=== PATIENT | female | born 1950 | race Caucasian/White ===

== ENCOUNTER → 2018-01-07 01:18 | Outpatient (CLI) | payer MEDICARE, SELFPAY ==
--- NOTE | 2018-01-07 11:47 | DI.REPORT_ITS ---
SYMPTOMS/DIAGNOSIS: SCREENING, Z12.31 MAMMOGRAMS: Mammograms were interpreted according to the usual protocol including computer analysis with CAD system, tomosynthesis and C view imaging. Comparison is with prior mammograms. The patient is status post bilateral breast reduction. No masses or microcalcifications are seen. There has been no significant change compared to the prior examinations. IMPRESSION: No evidence for malignancy. Yearly mammography is recommended. Category 1, breast density B. SA ASSESSMENT OF FINDINGS: Negative. Category 1. Patient will receive a letter notifying them of these results. BI-RADS category B. There are scattered areas of fibroglandular density.
== END ==
PROVIDERS: PCP Nurse Practitioner Family; Visit Provider Nurse Practitioner Family
DX: Z12.31 Encounter for screening mammogram for malignant neoplasm of breast (principal); Z98.890 Other specified postprocedural states
CPT/HCPCS: 77063; 77067

== ENCOUNTER 2018-05-13 16:05 | Outpatient (REF) | payer MEDICARE, MEDICAID, SELFPAY | END 2018-05-13 16:25 | LOC: NCHCN 16:05 | PROVIDERS: PCP Nurse Practitioner Family; Visit Provider Nurse Practitioner Family | DX: R53.83 Other fatigue (principal); I10 Essential (primary) hypertension; E78.5 Hyperlipidemia, unspecified; R19.8 Other specified symptoms and signs involving the digestive system and abdomen | CPT/HCPCS: 87077; 87086; 87186 ==

== ENCOUNTER 2018-08-13 16:30 | Outpatient (REF) | payer MEDICARE, MEDICAID, SELFPAY ==
[2018-08-13 22:01] LABS: Magnesium 1.5 mg/dL (1.8-2.4)
== END 2018-08-13 16:50 ==
LOC: NCHCN 16:30
PROVIDERS: PCP Nurse Practitioner Family; Visit Provider Nurse Practitioner Family
DX: E83.42 Hypomagnesemia; R53.83 Other fatigue; I10 Essential (primary) hypertension; R07.9 Chest pain, unspecified
CPT/HCPCS: 83735; 87086

== ENCOUNTER 2018-08-29 13:47 | Outpatient (REF) | payer MEDICARE, MEDICAID, SELFPAY ==
[2018-08-29 12:49] LABS: Magnesium 1.4 mg/dL (1.8-2.4)
== END 2018-08-29 14:07 ==
LOC: NCHCN 13:47
PROVIDERS: PCP Nurse Practitioner Family; Visit Provider Nurse Practitioner Family
DX: E83.42 Hypomagnesemia (principal)
CPT/HCPCS: 83735

== ENCOUNTER 2018-09-26 12:54 | Outpatient (REF) | payer MEDICARE, MEDICAID, SELFPAY ==
[2018-09-26 14:13] LABS: Magnesium 1.3 mg/dL (1.8-2.4)
== END 2018-09-26 13:14 ==
LOC: NCHCN 12:54
PROVIDERS: PCP Nurse Practitioner Family; Visit Provider Nurse Practitioner Family
DX: E83.42 Hypomagnesemia (principal)
CPT/HCPCS: 83735

== ENCOUNTER 2018-10-15 09:19 | Emergency (ER) | payer MEDICARE, SELFPAY ==
[2018-10-15 09:24] VITALS: BP 153/87; PULSE 101; RESP 16; TEMP 36.6; O2SAT 97
--- NOTE | 2018-10-15 09:37 | DI.CT_ITS ---
SYMPTOMS/DIAGNOSIS: DENTAL INFECTION, THROAT DISCOMFORT WITH SWALLOW, CONCERN FOR ABSCESS CT OF THE NECK: Post contrast exam was performed. There is stranding in the soft tissues adjacent to the left mandible. There is no evidence of a drainable abscess. The mandible is not fully included on the exam. There are small reactive lymph nodes beneath the left mandible. No areas of bony destruction or abscess are identified. Multiple nodules are seen in the thyroid, the largest being posteriorly in the left lobe, which contains calcifications. Degenerative changes are seen in the cervical spine. No prevertebral soft tissue swelling is seen. IMPRESSION: 1. Mild soft tissue inflammation beneath the level of the left mandible. No evidence of bony destruction or abscess. 2. Bilateral thyroid nodules. Ultrasound followup is recommended.
--- NOTE | 2018-10-15 09:51 | ED.GENADUL_ITS ---
Discharge Plan Disposition Patient Disposition: HOME Condition: Stable Discharge Details Chief Complaint: DentalOral Clinical Impression: Dental infection, Thyroid nodule Primary Care Provider: Joellen Molina ED Provider: Elie Hopkins Home Meds and New Rx's Prescriptions: New clindamycin HCl 150 mg capsule 450 mg PO TID 7 Days Qty: 63 RF: 0 Continued amitriptyline 100 mg tablet 100 mg PO RF: 0 triamcinolone acetonide 0.5 % ointment 0.5 % Topical DAILY 90 Days Qty: 1 RF: 5 aspirin 81 MG tablet,chewable 81 mg PO DAILY RF: 0 MEDICAL MARIJUANA Inhalation DAILY RF: 0 polyethylene glycol 3350 [Miralax] 17 GM powder in packet 17 gm PO DAILY RF: 0 calcium carbonate-vitamin D3 1 EACH tablet 1 ea PO DAILY RF: 0 Flovent HFA 10.6 GM HFA aerosol inhaler 88 mcg Inhalation BID RF: 0 lorazepam [Ativan] 1 MG tablet 1 mg PO BID PRN RF: 0 Novolog Mix 70-30FlexPen U-100 100 UNIT/1 ML insulin pen 20 Sub-Q AC RF: 0 Omeprazole Magnesium [Prilosec] 10 MG SUSPDR.PKT 20 mg PO DAILY RF: 0 enalapril maleate [Vasotec] 2.5 MG tablet 2.5 mg PO DAILY RF: 0 simvastatin 40 MG tablet 40 mg PO HS RF: 0 pramipexole [Mirapex] 0.5 MG tablet 0.5 mg PO HS RF: 0 levothyroxine 25 MCG tablet 25 mcg PO DAILY RF: 0 metformin [Glucophage] 1,000 MG tablet 1,000 mg PO BID RF: 0 Flovent HFA 120 PUFF HFA aerosol inhaler 2 puff Inhalation BID RF: 0 albuterol sulfate [ProAir HFA] 200 PUFF HFA aerosol inhaler 2 puff Inhalation Q6H PRN PRNRF: 0 Bydureon 2 MG/0.65 ML pen injector 2 mg SQ .QMONDAY RF: 0 Levemir FlexTouch U-100 Insuln 300 UNITS/3 ML insulin pen 30 units Sub-Q BID RF: 0 gabapentin 300 MG capsule 300 mg PO TID RF: 0 Discharge Instructions Instructions: Dental Abscess (ED) Additional Instructions: Please take your antibiotic and other medications as prescribed and follow-up with your primary care provider tomorrow for reassessment of your condition and to ensure your infection is improving. If you have any difficulty breathing, inability to swallow, or any other concerns emergently you should come back to the emergency department. Referrals: Joellen Molina [Primary Care Provider] - 10/16/18 7:45 am (A appointment has Already been arranged for you to follow-up tomorrow morning for reassessment) Discharge Data Discharge Date/Time-TO BE ENTERED AT DEPARTURE: 10/15/18 15:17 Medical Decision Making Patient reports 4 to 5 days ago she noted some pain in her left lower jaw and some mild facial swelling. Patient saw dentist yesterday and was placed on amoxicillin and took a total of 3 doses yesterday and 1 dose this morning. Patient noted significant swelling to the left lower jaw and some pain with swallowing today and was concerned for allergic reaction. She contacted her primary care provider for recommendation whom stated she should come to the emergency department. Physical exam does show significant swelling to the left lower jaw both external and internal, no erythema or area of induration and tissue that is swollen feel soft. Patient has multiple missing teeth and some swelling surrounding the left lower gumline and also there is appearance of some swelling underneath the tongue. Patient's airway is intact and patient is able to speak in full sentences, no trismus, no drooling. I have concern for dental abscess but also given the throat symptoms and potential for swelling under the tongue also Rafael's angina. Patient ordered labs, blood cultures, IV access clindamycin and CT imaging for further evaluation. Pending results patient given ketorolac for pain. Review of labs show a significant leukocytosis, elevated lactate, and hyperglycemia otherwise nondiagnostic CMP. Patient ordered second liter of IV fluids pending CT results Review of CT imaging shows significant soft tissue inflammatory changes suggestive of infection but no signs of abscess. Incidentally there were some thyroid nodules seen on CT scan that require further outpatient imaging. Rechecked lactate which is now 0.8 and patient states significant improvement of symptoms, reduction of sensation of swelling, and more controllable pain. Called and spoke with patient's primary care provider about needing a next day appointment for recheck of infection along with further outpatient testing for her thyroid nodules. We were able to obtain an appointment tomorrow morning for recheck. Close return precautions were discussed. After discussion of diagnosis and plan of care patient has no further needs, questions, or concerns and states clear understanding to return to the emergency department for any worsening symptoms. HPI General Mode of arrival: ambulatory . Date/Time Provider Initiated Documentation: 10/15/18 09:20 . Limitations to Documentation: no limitations . Information obtained by: patient and RN notes reviewed . History of Present Illness 67 year old F presents to the emergency department with the chief complaint of Dental pain, described as severe, Quality is described as sharp, and is localized to the mouth. Patient started experiencing this day(s) (4) and it has been constant. No relieving factors improve symptom(s), Patient notes no other symptoms.. Patient did receive the following treatments prior to arrival, NSAID Related Data Home Medications Medication Instructions Recorded Confirmed enalapril maleate [Vasotec] 2.5 mg PO DAILY 04/30/13 10/15/18 pramipexole [Mirapex] 0.5 mg PO HS 04/30/13 10/15/18 simvastatin 40 mg PO HS 04/30/13 10/15/18 levothyroxine 25 mcg PO DAILY 09/05/13 10/15/18 Bydureon 2 mg SQ .QMONDAY 02/22/15 10/15/18 Flovent HFA 2 puff INHALATION BID 02/22/15 10/15/18 albuterol sulfate [ProAir HFA] 2 puff INHALATION Q6H PRN PRN 02/22/15 10/15/18 metformin [Glucophage] 1,000 mg PO BID 02/22/15 10/15/18 Levemir FlexTouch U-100 Insuln 30 units SUB-Q BID 06/07/15 10/15/18 aspirin 81 mg PO DAILY tab-cap 11/13/16 10/15/18 gabapentin 300 mg PO TID 08/10/17 10/15/18 Flovent HFA 88 mcg INHALATION BID inhaler 10/04/17 10/15/18 Medical Marijuana INHALATION DAILY 10/04/17 04/22/18 Novolog Mix 70-30FlexPen U-100 20 SUB-Q AC 10/04/17 04/22/18 Omeprazole Magnesium [Prilosec] 20 mg PO DAILY packet 10/04/17 10/15/18 calcium carbonate-vitamin D3 1 ea PO DAILY 10/04/17 10/15/18 lorazepam [Ativan] 1 mg PO BID PRN tab-cap 10/04/17 10/15/18 polyethylene glycol 3350 [Miralax] 17 gm PO DAILY gm 10/04/17 10/15/18 amitriptyline 100 mg tablet 100 mg PO tab 04/22/18 04/22/18 triamcinolone acetonide 0.5 % 0.5 % TOPICAL DAILY 90 Days #1 tube 04/22/18 10/15/18 topical ointment clindamycin HCl 450 mg PO TID 7 Days #63 cap 10/15/18 Previous Rx's Medication Instructions Recorded triamcinolone acetonide 0.5 % 0.5 % TOPICAL DAILY 90 Days #1 tube 04/22/18 topical ointment clindamycin HCl 450 mg PO TID 7 Days #63 cap 10/15/18 Allergies Allergy/AdvReac Type Severity Reaction Status Date / Time prochlorperazine edisylate Allergy Severe Anaphylaxsi Unverified 10/15/18 09:28 [From Compazine] s prochlorperazine maleate Allergy Severe Anaphylaxsi Unverified 10/15/18 09:28 [From Compazine] s codeine AdvReac Intermediate stomach in Unverified 10/15/18 09:28 knot, and back pains naproxen sodium [From Aleve] AdvReac Intermediate light Unverified 10/15/18 09:28 headed, vomit Penicillins AdvReac Unverified 10/15/18 09:28 General Stated Complaint: DentalOral JAMIL: 4 Review of Systems Constitutional Denies chills and Denies fever(s) ENT Reports as per HPI, Denies change in voice, Reports dental pain, Reports dysphagia, Denies otalgia, Reports mouth pain, Reports sore throat, Denies throat swelling and Denies tongue swelling Cardiovascular Denies chest pain and Denies dyspnea Respiratory Denies dyspnea, Denies stridor and Denies wheezing Gastrointestinal Denies abdominal pain, Reports dysphagia, Denies nausea and Denies vomiting Integumentary/Breasts Denies rash Allergic/Immunologic Denies throat swelling, Denies tongue swelling and Denies wheezing [facility] Medical History COPD (chronic obstructive pulmonary disease) DM (diabetes mellitus) Depression GERD (gastroesophageal reflux disease) HTN (hypertension) Hypothyroidism PTSD (post-traumatic stress disorder) Surgical History Abdominal hysterectomy Cholecystectomy Colonoscopy - MAC (11/27/16) Reduction mammoplasty tension free vaginal tape (TOT) Social History Smoking/Tobacco Use Status: Former Tobacco Use Alcohol Intake: never Drug use: Occasionally Substance use type: marijuana Number of Children: 0 Seatbelt use: always Do you feel safe at home: Yes Do you feel safe in your relationship?: Yes Female Reproductive History Menstrual Menopause type: natural History History 0 Para Hx # Term Pregnancies Multiple births Hx # Pregnancies Ectopic pregnancies AB induced Hx Number of Living Children AB spontaneous Exam Const General: cooperative Orientation: alert, awake and oriented x3 Limitations: mental status not altered HENMT Head: normal to inspection, normocephalic and atraumatic Ears: hearing grossly normal bilaterally, normal mastoids bilaterally and no periauricular adenopathy General nose exam: external nose normal Mouth: oropharynx normal, no drooling, no muffled voice, tongue abnormal elevated (slightly) and no trismus Teeth and gingiva: caries, gingiva abnormal other (swelling to left lower jaw), poor dentition and other Throat: posterior oropharynx normal, tonsils normal and uvula midline Eyes General: appearance normal, both eyes and all related structures Pupils: PERRL Neck Neck: normal visual inspection, full ROM, no meningeal signs, trachea midline, supple, no anterior neck swelling and other (Significant swelling under jaw mostly on left side) Resp Effort & Inspection: normal respiratory effort and able to speak in complete sentences Auscultation: clear to auscultation bilaterally Cardio Rate: regular rate Rhythm: regular rhythm Heart Sounds: S1 normal and S2 normal Course Vital Signs Temperature 36.6 C 10/15/18 09:24 Pulse 101 H 10/15/18 09:24 Respiratory Rate 16 10/15/18 09:24 Blood Pressure 153/87 H 10/15/18 09:24 Pulse Oximetry 97 10/15/18 09:24 Temperature 36.6 C 10/15/18 09:24 Temperature Source Temporal Artery Scan 10/15/18 09:24 Pulse 101 H 10/15/18 09:24 Respiratory Rate 16 10/15/18 09:24 Respiratory Effort Non-Labored 10/15/18 09:27 Blood Pressure 153/87 H 10/15/18 09:24 Blood Pressure Position Sitting 10/15/18 09:24 Pulse Oximetry 97 10/15/18 09:24 Oxygen Delivery Method Room Air 10/15/18 09:24 Oxygen Flow Rate 0 10/15/18 09:24 Pain Level 10 10/15/18 09:35 Lab/Test Results Lab/Test Results: 10/15/18 09:41 Blood Blood Culture - Pending 10/15/18 09:41 Blood Blood Culture - Pending
[2018-10-15] MEDS: Ketorolac 30 MG/ML VIAL IVP (10:06)
[2018-10-15 10:09] LABS: Abs Immature Grans 0.08 k/cumm (0.0-0.09); Absolute Basophil Count 0.07 k/cumm (0.0-0.2); Absolute Eosinophil Count 0.19 k/cumm (0.0-0.7); Absolute Monocyte Count 2.07 k/cumm (0.11-0.7); Basophils % 0.3; Eosinophils % 0.8; HCT 37.8 % (36.0-46.0); HGB 12.4 g/dL (12.0-15.5); Immature Grans % 0.3; Lymphocytes % 10.9; Mean Corp. HGB Concentration 32.8 g/dL (32.0-36.0); Mean Corpuscular Hemoglobin 27.9 pg (27.0-33.0); Mean Corpuscular Volume 84.9 fL (80-95); Mean Platelet Volume 10.1 fL (8.0-11.0); Monocytes % 8.8; Neutrophils % 78.9; Platelet Count 394 x1000/uL (130-400); RBC 4.45 m/cumm (4.00-5.20); RBC Distribution Width 15.5 % (11.7-14.6); White Blood Cell Count 23.57 k/cumm (4.4-10.8)
[2018-10-15 10:12] LABS: Absolute Lymphocyte Count 2.57 k/cumm (1.2-3.4)
[2018-10-15 10:14] LABS: Lactate-non-spesis 2.4 mmol/l (0.6-1.4)
[2018-10-15 10:23] LABS: ALT 43 U/L (12-78); AST 14 U/L (15-37); Albumin 3.6 g/dL (3.4-5.0); Alkaline Phosphatase 120 U/L (46-116); Anion Gap 13.3 mmol/L (3-11); BUN 12 mg/dL (7-18); Bilirubin, Total 0.5 mg/dL (0.2-1.0); CO2 24.7 mmol/L (21.0-32.0); CREATININE 0.86 mg/dL (0.55-1.02); Calcium 9.8 mg/dL (8.5-10.1); Chloride 95 mmol/L (98-107); Glucose 264 mg/dL (70-100); Potassium 3.7 mmol/L (3.5-5.1); Sodium 133 mmol/L (136-145); Total Protein 8.6 g/dL (6.4-8.2)
[2018-10-15] MEDS: Normal Saline 1,000 ML 1000 ML IV ×2 (10:29→13:05)
[2018-10-15] MEDS: CLINDAMYCIN 600 MG/50 ML BAG 100 MG IVPB (10:29)
[2018-10-15 10:57] LABS: Diff Comment Diff Reviewed; RBC Morphology Normal
[2018-10-15] MEDS: Omnipaque 350 MG/ML 100 ML BTL IJ (12:04)
--- NOTE | 2018-10-15 12:13 | NUR.NOTE ---
Nursing Note: Assumed care of pt. Report from GUME Julian Pt is in CT
[2018-10-15 12:24] VITALS: BP 118/68; PULSE 85; RESP 18; O2SAT 96
[2018-10-15 14:26] LABS: Lactate-non-spesis 0.8 mmol/l (0.6-1.4)
== END 2018-10-15 15:17 | disposition home or self-care (01) ==
PROVIDERS: Emergency Provider Nurse Practitioner Family; PCP Nurse Practitioner Family
DX: K04.7 Periapical abscess without sinus (principal); E04.1 Nontoxic single thyroid nodule; E11.9 Type 2 diabetes mellitus without complications; I10 Essential (primary) hypertension; J44.9 Chronic obstructive pulmonary disease, unspecified; Z87.891 Personal history of nicotine dependence
CPT/HCPCS: 36415; 70491; 80053; 87040; 96361; 96365; 96375; 99285; 83605; 85025; 99284; J1885; J3490

== ENCOUNTER 2018-10-16 09:19 | Outpatient (REF) | payer MEDICARE, SELFPAY ==
[2018-10-16 13:10] LABS: Abs Immature Grans 0.04 k/cumm (0.0-0.09); Absolute Basophil Count 0.07 k/cumm (0.0-0.2); Absolute Lymphocyte Count 1.79 k/cumm (1.2-3.4); Absolute Neutrophil Count 11.14 k/cumm (1.2-6.7); Basophils % 0.5; Eosinophils % 2.1; HGB 11.1 g/dL (12.0-15.5); Immature Grans % 0.3; Lymphocytes % 12.5; Mean Corp. HGB Concentration 31.7 g/dL (32.0-36.0); Mean Corpuscular Hemoglobin 27.4 pg (27.0-33.0); Mean Corpuscular Volume 86.4 fL (80-95); Monocytes % 6.8; Neutrophils % 77.8; Platelet Count 366 x1000/uL (130-400); RBC 4.05 m/cumm (4.00-5.20); RBC Distribution Width 15.6 % (11.7-14.6); White Blood Cell Count 14.32 k/cumm (4.4-10.8)
[2018-10-16 13:11] LABS: Absolute Monocyte Count 0.97 k/cumm (0.11-0.7)
[2018-10-16 14:13] LABS: Diff Comment Manual Differential; Polychromasia Present
== END 2018-10-16 09:39 ==
LOC: NCHCN 09:19
PROVIDERS: PCP Nurse Practitioner Family; Visit Provider Specialist/Technologist Athletic Trainer
DX: K04.7 Periapical abscess without sinus (principal)
CPT/HCPCS: 85025

== ENCOUNTER 2018-10-18 01:03 | Outpatient (CLI) | payer MEDICARE, SELFPAY ==
--- NOTE | 2018-10-18 12:03 | DI.US_ITS ---
SYMPTOMS/DIAGNOSIS: THYROID NODULE, E04.1 THYROID ULTRASOUND: Comparison is made with neck CT dated October,. The right lobe measures 3.7 x 1.6 x 1.5 cm. The left lobe measures 4.3 x 1.9 x 1.8 cm. In the left lobe, there is a 1.9 x 1.1 x 1.2 cm nodule in the posterior mid left lobe. There are calcifications creating a significant amount of shadowing. The posterior portions of the nodule are not visible. There are several other scattered benign-appearing nodules in both lobes. IMPRESSION: A 1.9 cm nodule containing multiple calcifications. FNA is recommended for further evaluation.
== END 2018-10-18 01:23 ==
PROVIDERS: PCP Nurse Practitioner Family; Visit Provider Specialist/Technologist Athletic Trainer
DX: E04.1 Nontoxic single thyroid nodule (principal); E07.89 Other specified disorders of thyroid
CPT/HCPCS: 76536

== ENCOUNTER 2018-11-11 13:30 | Outpatient (REF) | payer MEDICARE, SELFPAY ==
[2018-11-11 21:29] LABS: FREE T4 1.16 ng/dL (0.76-1.46); Magnesium 1.7 mg/dL (1.8-2.4)
[2018-11-12 18:10] LABS: T3, Total 126 ng/dl (97-169)
== END 2018-11-11 13:50 ==
LOC: NCHCN 13:30
PROVIDERS: PCP Nurse Practitioner Family; Visit Provider Nurse Practitioner Family
DX: E03.9 Hypothyroidism, unspecified (principal); E83.42 Hypomagnesemia; J44.9 Chronic obstructive pulmonary disease, unspecified; E04.1 Nontoxic single thyroid nodule
CPT/HCPCS: 83735; 84439; 84443; 84480

== ENCOUNTER 2019-02-21 11:17 | Emergency (ER) | payer MEDICARE, SELFPAY ==
[2019-02-21 11:28] VITALS: BP 143/63; PULSE 84; RESP 16; TEMP 36.6; O2SAT 97
--- NOTE | 2019-02-21 11:46 | ED.GENADUL_ITS ---
Discharge Plan Disposition Patient Disposition: AGAINST MEDICAL ADVICE Condition: Serious Discharge Details Chief Complaint: Dizzy/Sync Clinical Impression: TIA (transient ischemic attack), UTI (urinary tract infection) Primary Care Provider: Joellen Molina ED Provider: Mariah Li Home Meds and New Rx's Prescriptions: New sulfamethoxazole-trimethoprim [Bactrim DS] 800-160 mg tablet 1 tab PO BID Qty: 10 RF: 0 Continued amitriptyline 100 mg tablet 100 mg PO RF: 0 triamcinolone acetonide 0.5 % ointment 0.5 % Topical DAILY 90 Days Qty: 1 RF: 5 aspirin 81 MG tablet,chewable 81 mg PO DAILY RF: 0 MEDICAL MARIJUANA Inhalation DAILY RF: 0 polyethylene glycol 3350 [Miralax] 17 GM powder in packet 17 gm PO DAILY RF: 0 calcium carbonate-vitamin D3 1 EACH tablet 1 ea PO DAILY RF: 0 Flovent HFA 10.6 GM HFA aerosol inhaler 88 mcg Inhalation BID RF: 0 lorazepam [Ativan] 1 MG tablet 1 mg PO BID PRN RF: 0 Novolog Mix 70-30FlexPen U-100 100 UNIT/1 ML insulin pen 20 Sub-Q AC RF: 0 Omeprazole Magnesium [Prilosec] 10 MG SUSPDR.PKT 20 mg PO DAILY RF: 0 simvastatin 40 MG tablet 40 mg PO HS RF: 0 pramipexole [Mirapex] 0.5 MG tablet 0.5 mg PO HS RF: 0 levothyroxine 25 MCG tablet 25 mcg PO DAILY RF: 0 metformin [Glucophage] 1,000 MG tablet 1,000 mg PO BID RF: 0 Flovent HFA 120 PUFF HFA aerosol inhaler 2 puff Inhalation BID RF: 0 albuterol sulfate [ProAir HFA] 200 PUFF HFA aerosol inhaler 2 puff Inhalation Q6H PRN PRNRF: 0 Bydureon 2 MG/0.65 ML pen injector 2 mg SQ .QMONDAY RF: 0 Levemir FlexTouch U-100 Insuln 300 UNITS/3 ML insulin pen 55 units Sub-Q HS RF: 0 enalapril maleate 20 mg Tablet 30 mg PO DAILY RF: 0 aripiprazole [Abilify] 15 mg Tablet 15 mg PO DAILY RF: 0 gabapentin 300 MG capsule 300 mg PO TID RF: 0 Discharge Instructions Instructions: Urinary Tract Infection in Women (ED) Additional Instructions: You are refusing admission at this time. Is been recommended that you stay in the hospital. You have an appointment with your primary care on Sunday at 10:15 AM. I am concerned that a transient ischmic attack and have recommended admission. You may return at any time for continued evaluation and treatment. If you develop recurrence of blood weakness, headache, visual changes, sensation changes or other new/worsening symptoms please seek care urgently once again. Please continue to take your daily aspirin. Encourage hydration. Take the Keflex as prescribed for your UTI. If you develop back pain, fevers or other new/worsening symptoms please seek care urgently once again. Referrals: Joellen Molina [Primary Care Provider] - Discharge Data Discharge Date/Time-TO BE ENTERED AT DEPARTURE: 02/21/19 14:45 Medical Decision Making <Andres Flood DO - Last Filed: 02/21/19 11:59> EKG 11: 27 Rate 77, intervals normal, sinus rhythm, no significant ST elevations or depressions, no Q waves, no evidence of STEMI <HELEN Donahue - Last Filed: 02/26/19 08:18> Patient is 68-year-old female presenting today with chief complaints of right- sided weakness began a 1.5 hours prior to arrival. Reports that this came on when in the shower and that she felt herself leaning towards the right.. States that she has had a headache but states that this is typical. Endorses chronic headaches. States that the headache currently is mild and typical for her. She denies any visual changes. No fevers, chills, neck pain, rash, chest pain, palpitations, shortness of breath. Patient does have history of type 2 diabetes, depression, GERD, hypertension, COPD, hypothyroidism. On exam, patient slipped resting comfortably. She is sitting in upright and even position. Blood pressure is elevated 143/60 which is typical for the patient, vital signs otherwise within normal limits. Neurologic exam is intact. Patient has normal sinus rhythm on cardiac exam, lungs clear. At this point, I do not see any objective findings to suggest an acute stroke. EKG was reviewed by physician. Patient is in normal sinus rhythm with a rate of 77, and no evidence to suggest ischemic abnormality. Patient was brought to CT is possible. Patient does remain in the window should any symptoms worsen. H owever, given how mild the symptoms are at this point does not feel that she would be a TPA candidate. CT was reviewed by radiologist. He advised no evidence of bleed or mass. Does note atrophic changes consistent with small vessel disease. Labs reviewed. Patient does have white count of 11.93, this is downtrending from a few months ago. Patient does seem to always have a degree of leukocyto sis. Patient's hemoglobin is 10.3. She has been anemic historically. She denies any melena, bright red blood per rectum, easy bruising or hematuria. Patient's glucose is elevated at 327. States she has been elevated recently and has not dosed herself with insulin as of yet today. She is dosing herself now. Prefers to use her home insulin for dosing. Magnesium is low at 1.4, patient is chronically low. Troponin is less than 0.05. UA reviewed, it is concerning for infection. While this does not explain all of her symptoms, I feel that treatment for this is appropriate she may be having unusual symptoms associated with urinary tract infection given the patient's age she does have a history of diabetes. Patient reports that her right-sided weakness is improving. She reports that her symptoms resolved shortly after arrival. She is currently asymptomatic. She is administering her own insulin at this time for her hyperglycemia. I discussed my concern regarding her right-sided weakness and concern for TIA. She is a high risk based on ABCD 2 score. I recommended admission for TIA and continued evaluation. However, patient reports that she lives alone, has a dog and feels like she wants to go home. I did discuss with her that we would be able to have care management involved in her admission and she continues to refuse. Is she would like to go home at this time with close follow-up with primary care. She is aware of the risks and seems very appropriate, mentating appropriately with good cognitive ability. She is able to voice my concerns and seems to have good understanding of the risks with her choice. Patient lives locally and is able to return with any new or worsening symptoms. I called primary care and is able to make an appointment for Sunday morning for reevaluation. Patient is already on a daily aspirin. Without underlying source of potential TIA, do not feel that further anticoagulation is appropriate at this time. HPI <Andres Flood DO - Last Filed: 02/21/19 11:59> General Date/Time Provider Initiated Documentation: 02/21/19 11:45 . Related Data Home Medications Medication Instructions Recorded Confirmed pramipexole [Mirapex] 0.5 mg PO HS 04/30/13 02/21/19 simvastatin 40 mg PO HS 04/30/13 02/21/19 levothyroxine 25 mcg PO DAILY 09/05/13 02/21/19 Bydureon 2 mg SQ .QMONDAY 02/22/15 02/21/19 Flovent HFA 2 puff INHALATION BID 02/22/15 02/21/19 albuterol sulfate [ProAir HFA] 2 puff INHALATION Q6H PRN PRN 02/22/15 02/21/19 metformin [Glucophage] 1,000 mg PO BID 02/22/15 02/21/19 Levemir FlexTouch U-100 Insuln 55 units SUB-Q HS 06/07/15 02/21/19 aspirin 81 mg PO DAILY tab-cap 11/13/16 02/21/19 gabapentin 300 mg PO TID 08/10/17 02/21/19 Flovent HFA 88 mcg INHALATION BID inhaler 10/04/17 02/21/19 Medical Marijuana INHALATION DAILY 10/04/17 04/22/18 Novolog Mix 70-30FlexPen U-100 20 SUB-Q AC 10/04/17 04/22/18 Omeprazole Magnesium [Prilosec] 20 mg PO DAILY packet 10/04/17 02/21/19 calcium carbonate-vitamin D3 1 ea PO DAILY 10/04/17 10/15/18 lorazepam [Ativan] 1 mg PO BID PRN tab-cap 10/04/17 02/21/19 polyethylene glycol 3350 [Miralax] 17 gm PO DAILY gm 10/04/17 02/21/19 amitriptyline 100 mg tablet 100 mg PO tab 04/22/18 04/22/18 triamcinolone acetonide 0.5 % 0.5 % TOPICAL DAILY 90 Days #1 tube 04/22/18 02/21/19 topical ointment aripiprazole [Abilify] 15 mg PO DAILY 02/21/19 02/21/19 enalapril maleate 30 mg PO DAILY 02/21/19 02/21/19 sulfamethoxazole-trimethoprim 1 tab PO BID #10 tab 02/21/19 [Bactrim DS] Previous Rx's Medication Instructions Recorded triamcinolone acetonide 0.5 % 0.5 % TOPICAL DAILY 90 Days #1 tube 04/22/18 topical ointment sulfamethoxazole-trimethoprim 1 tab PO BID #10 tab 02/21/19 [Bactrim DS] Allergies Allergy/AdvReac Type Severity Reaction Status Date / Time prochlorperazine edisylate Allergy Severe Anaphylaxsi Unverified 02/21/19 11:32 [From Compazine] s prochlorperazine maleate Allergy Severe Anaphylaxsi Unverified 02/21/19 11:32 [From Compazine] s codeine AdvReac Intermediate stomach in Unverified 02/21/19 11:32 knot, and back pains naproxen sodium [From Aleve] AdvReac Intermediate light Unverified 02/21/19 11:32 headed, vomit Penicillins AdvReac Unverified 02/21/19 11:32 <HELEN Donahue - Last Filed: 02/26/19 08:18> General Mode of arrival: ambulatory . Limitations to Documentation: no limitations . Information obtained by: patient and RN notes reviewed . HPI Narrative: Patient ifeoma 68 year old female with hx of type 2 DM, tubular adenoma of colon, HTN, GERD, depression, COPD, hypothyroidism, PTSD with c/c of TSANG and right sided weakness. Reports that this began around 1000 when she got into a hot shower. States that she had been planning ot see her PCP today for an ulcer on my toe when you look with a microscope. However, when these symptoms began she was advised to come here. States that she frequently has TSANG and that she is having a frontal TSANG that is normal for her. No thunderclap onset, feels like a typical TSANG for the patient. States that she then has some right sided weakness and felt like she was falling to my right. Did not actually fall, no trauma. States that she had the sensation of her left eye is bulging out of my head but that this sensation has been present for the past several weeks. No acute changes in vision. No hx of TIA or CVA. No SOB, no CP. Denies palpitations. Denies N/V. No change in bowel or bladder habits. General Stated Complaint: Dizzy/Sync JAMIL: 3 <HELEN Donahue - Last Filed: 02/26/19 08:18> Constitutional Constitutional: Reports as per HPI, Denies chills, Denies fatigue, Denies fever(s), Denies frequent falls, Reports headache(s) (chronic frontal TSANG, no acute change), Denies snoring and Reports weakness (feel weakness in right side) Eyes Eyes: Reports as per HPI, Denies blurry vision, Denies change in vision and Reports photophobia ENT Ears, Nose, Mouth, and Throat: Denies vertigo, Reports headache(s) (chronic frontal TSANG, no acute change) and Denies neck pain Cardiovascular Cardiovascular: Reports as per HPI, Denies chest pain, Denies lightheadedness, Denies radiating jaw, neck or arm pain, Denies dyspnea and Denies dyspnea on exertion Respiratory Respiratory: Reports as per HPI, Denies chest congestion, Denies cough, Denies dyspnea, Denies dyspnea on exertion, Denies snoring, Denies stridor and Denies wheezing Gastrointestinal Gastrointestinal: Reports as per HPI, Denies abdominal pain, Denies change in bowel habits, Denies nausea and Denies vomiting Musculoskeletal Musculoskeletal: Reports as per HPI, Denies back pain, Denies myalgias, Denies muscle cramps, Denies neck pain and Denies numbness Integumentary/Breasts Skin/Breast: Reports as per HPI and Denies rash Neurologic Neurologic: Reports as per HPI, Denies abnormal movements, Denies abnormal speech, Denies behavioral changes, Denies confusion, Denies vertigo, Denies frequent falls, Reports headache(s) (chronic frontal TSANG, no acute change), Denies focal weakness, Denies numbness, Denies sensory deficit and Reports weakness (feel weakness in right side) Psychiatric Psychiatric: Denies behavioral changes and Denies confusion Endocrine Endocrine: Denies fatigue Allergic/Immunologic Allergic/Immunologic: Denies wheezing PFSH <Andres Flood DO - Last Filed: 02/21/19 11:59> Medical History COPD (chronic obstructive pulmonary disease) Depression DM (diabetes mellitus) GERD (gastroesophageal reflux disease) HTN (hypertension) Hypothyroidism PTSD (post-traumatic stress disorder) Surgical History Abdominal hysterectomy Cholecystectomy Colonoscopy - MAC (11/27/16) Reduction mammoplasty tension free vaginal tape (TOT) 10/2013. Social History Smoking/Tobacco Use Status: Former Tobacco Use Alcohol Intake: never Drug use: Daily Substance use type: marijuana Number of Children: 0 Seatbelt use: always Do you feel safe at home: Yes Do you feel safe in your relationship?: Yes History History 0 Para Hx # Term Pregnancies Multiple births Hx # Pregnancies Ectopic pregnancies AB induced Hx Number of Living Children AB spontaneous <HELEN Donahue - Last Filed: 02/26/19 08:18> Female Reproductive History Menopause type: natural <HELEN Donahue - Last Filed: 02/26/19 08:18> Const General: cooperative, healthy appearing, uncomfortable, no acute distress, well developed and well groomed Nutritional Appearance: well nourished and overweight Orientation: alert, awake and oriented x3 HENMT Head: normal to inspection, no palpable skull fracture, normocephalic and atraumatic Ears: hearing grossly normal bilaterally, external ears normal and TM's normal bilaterally General nose exam: external nose normal Mouth: oral mucosae normal and moist mucous membranes Throat: posterior oropharynx normal Eyes General: appearance normal, both eyes and all related structures Alignment and Position: alignment normal Periorbital: periorbital findings normal Eyelids: eyelids normal Sclera: sclerae normal Cornea: corneas normal Pupils: PERRL EOM: EOM intact bilaterally Neck Neck: normal visual inspection, full ROM, no lymphadenopathy and no meningeal signs Resp Effort & Inspection: normal respiratory effort, able to speak in complete sentences and no respiratory distress Auscultation: clear to auscultation bilaterally, no rales, no rhonchi and no wheezes Cardio Rate: regular rate Rhythm: regular rhythm Heart Sounds: S1 normal and S2 normal GI Inspection: normal to inspection and non-distended Palpation: soft, no hepatosplenomegaly, not firm, no guarding, not rigid and nontender Percussion: normal to percussion Auscultation: normal bowel sounds Back/Spine/Pelvis Cervical Spine: normal cervical lordosis and cervical ROM normal Skin General skin exam: no rashes or lesions noted Neuro General: alert, awake and oriented x3 Cranial Nerves: CN's II-XI intact bilaterally Cognition: normal cognition Speech: speech normal Gait: normal gait Motor: muscle tone normal throughout, strength 5/5 throughout, no pronator drift, no movement abnormalities noted and no fasciculations Sensory Exam: no sensory deficits noted Coordination: [id number] test normal and [id number] test normal Extrem General: normal to inspection, normal capillary refill, no pedal edema and no calf tenderness Psych Appearance: grossly normal and well kempt Mental Status: mental status grossly normal Speech and Movement: speech and movement normal <HELEN Donahue - Last Filed: 02/26/19 08:18> Vital Signs Vital signs: Vital Signs Temperature 36.6 C 02/21/19 11:28 Pulse 84 02/21/19 11:28 Respiratory Rate 16 02/21/19 11:28 Blood Pressure 143/63 H 02/21/19 11:28 Pulse Oximetry 97 02/21/19 11:28 Temperature 36.6 C 02/21/19 11:28 Temperature Source Skin 02/21/19 11:28 Pulse 84 02/21/19 11:28 Respiratory Rate 16 02/21/19 11:28 Respiratory Effort Non-Labored 02/21/19 11:42 Respiratory Depth Normal 02/21/19 11:42 Respiratory Pattern Normal 02/21/19 11:42 Blood Pressure 143/63 H 02/21/19 11:28 Blood Pressure Position Sitting 02/21/19 11:28 Pulse Oximetry 97 02/21/19 11:28 Oxygen Delivery Method Room Air 02/21/19 11:28 Oxygen Flow Rate 0 02/21/19 11:28
--- NOTE | 2019-02-21 11:54 | DI.CT_ITS ---
EXAM: CT HEAD - STROKE PROTOCOL CLINICAL HISTORY: subjective right sided weakness, dizzy. TECHNIQUE: The exam was performed according to the usual protocol without contrast material. COMPARISON: No exams were available for comparison FINDINGS: Mild atrophy is demonstrated. There is no evidence of an intra or extra-axial hemorrhage. The ventr icles are normal. There are small regions of diminished absorption in the frontoparietal white matte r consistent with small vessel disease. There is no evidence of a skull fracture. The paranasal sinu ses are intact. There is no evidence of a mastoid effusion. IMPRESSION: Mild atrophy and small vessel disease. No Acute abnormality is demonstrated.
[2019-02-21 12:13] LABS: Abs Immature Grans 0.03 k/cumm (0.0-0.09); Absolute Basophil Count 0.06 k/cumm (0.0-0.2); Absolute Eosinophil Count 0.32 k/cumm (0.0-0.7); Absolute Monocyte Count 0.69 k/cumm (0.11-0.7); Absolute Neutrophil Count 8.26 k/cumm (1.2-6.7); Basophils % 0.5; Eosinophils % 2.7; HCT 32.9 % (36.0-46.0); HGB 10.3 g/dL (12.0-15.5); Immature Grans % 0.3; Lymphocytes % 21.5; Mean Corp. HGB Concentration 31.3 g/dL (32.0-36.0); Mean Corpuscular Hemoglobin 24.9 pg (27.0-33.0); Mean Corpuscular Volume 79.7 fL (80-95); Mean Platelet Volume 10.3 fL (8.0-11.0); Monocytes % 5.8; Neutrophils % 69.2; Platelet Count 409 x1000/uL (130-400); RBC 4.13 m/cumm (4.00-5.20); RBC Distribution Width 15.6 % (11.7-14.6); White Blood Cell Count 11.93 k/cumm (4.4-10.8)
[2019-02-21 12:14] LABS: Absolute Lymphocyte Count 2.56 k/cumm (1.2-3.4)
[2019-02-21 12:20] LABS: PTT Activated 24.1 sec (21.0-31.4); Prothrombin Time 10.3 sec (9.3-11.0)
[2019-02-21 12:32] LABS: ALT 37 U/L (14-59); AST 33 U/L (15-37); Albumin 3.3 g/dL (3.4-5.0); Alkaline Phosphatase 106 U/L (46-116); BUN 13 mg/dL (7-18); Bilirubin, Total 0.3 mg/dL (0.2-1.0); CREATININE 0.75 mg/dL (0.55-1.02); Calcium 8.9 mg/dL (8.5-10.1); Chloride 101 mmol/L (98-107); Glucose 327 mg/dL (70-100); Magnesium 1.4 mg/dL (1.8-2.4); Potassium 4.2 mmol/L (3.5-5.1); Sodium 137 mmol/L (136-145); TSH 2.78 uIU/mL (0.36-3.74); Total Protein 7.6 g/dL (6.4-8.2)
[2019-02-21 12:33] LABS: Troponin I < 0.05 ng/mL (0.00-0.06)
[2019-02-21 13:42] LABS: Bilirubin Negative (Negative); Blood Moderate (Negative); Clarity Clear (Clear); Glucose 500 mg/dL (Negative); Ketones Negative (Negative); Leukocyte Esterase Negative (Negative); Nitrite Negative (Negative); Specific Gravity 1.015 (1.005-1.025); Urobilinogen 0.2 EU/dL (Up TO 0.2); pH 5.5 (5-8)
[2019-02-21 13:53] LABS: Bacteria Many HPF (Negative); C & S Indicated? Yes; Casts Negative LPF (Negative); Crystals Negative HPF (Negative); Epithelial Cells Few HPF (Negative); Mucus Negative (Negative); RBC >50 (0-2)
[2019-02-21 14:42] VITALS: BP 131/57; PULSE 74; RESP 16; TEMP 37; O2SAT 96
== END 2019-02-21 14:45 | disposition left against medical advice (07) ==
PROVIDERS: Emergency Provider Physician Assistant; PCP Nurse Practitioner Family
DX: G45.9 Transient cerebral ischemic attack, unspecified (principal); N39.0 Urinary tract infection, site not specified; I10 Essential (primary) hypertension; E11.9 Type 2 diabetes mellitus without complications; J44.9 Chronic obstructive pulmonary disease, unspecified; Z79.84 Long term (current) use of oral hypoglycemic drugs; Z87.891 Personal history of nicotine dependence
CPT/HCPCS: 80053; 87077; 70450; 81003; 81015; 83735; 84443; 84484; 85025; 85610; 85730; 87086; 87186

== ENCOUNTER 2019-02-24 11:53 | Outpatient (REF) | payer MEDICARE, SELFPAY ==
[2019-02-24 21:53] LABS: Calculated LDL 56 mg/dL; Cholesterol 144 mg/dL (50-200); HDL Cholesterol 55 mg/dL (40-60); Triglyceride 168 mg/dL (30-150)
== END 2019-02-24 12:13 ==
LOC: NCHCN 11:53
PROVIDERS: PCP Nurse Practitioner Family; Visit Provider Specialist/Technologist Athletic Trainer
DX: E11.65 Type 2 diabetes mellitus with hyperglycemia (principal)
CPT/HCPCS: 80061

== ENCOUNTER 2019-02-26 15:28 | Outpatient (REF) | payer MEDICARE, SELFPAY ==
[2019-02-26 22:47] LABS: Iron 28 ug/dL (50-175); Total Iron Binding Capacity 555 ug/dL (250-450); Transferrin Sat 5 % (15-50)
[2019-02-26 23:11] LABS: Ferritin 9 ng/mL (8-388); Vitamin B12 644 pg/mL (193-986)
[2019-02-26 23:29] LABS: Folate > 20.0 ng/mL (8.6-20.0)
== END 2019-02-26 15:48 ==
LOC: NCHCN 15:28
PROVIDERS: PCP Nurse Practitioner Family; Visit Provider Specialist/Technologist Athletic Trainer
DX: D64.9 Anemia, unspecified (principal)
CPT/HCPCS: 82607; 82728; 82746; 83540; 83550

== ENCOUNTER 2019-02-27 00:49 | Outpatient (CLI) | payer MEDICARE, SELFPAY ==
--- NOTE | 2019-02-27 09:30 | DI.US_ITS ---
EXAM: US CAROTID CLINICAL HISTORY: DIZZY SPELLS, R42. TECHNIQUE: Ultrasound performed using standard protocol. COMPARISON: US thyroid from 10/18/2018 FINDINGS: The carotids are of free of plaque. There is no evidence of right or left carotid stenosis and anteg rade flow is noted in the vertebrals. IMPRESSION: There is no evidence of carotid stenosis.
== END 2019-02-27 01:09 ==
PROVIDERS: PCP Nurse Practitioner Family; Visit Provider Specialist/Technologist Athletic Trainer
DX: R42 Dizziness and giddiness (principal)
CPT/HCPCS: 93880

== ENCOUNTER 2019-03-11 22:15 | Outpatient (REF) | payer MEDICARE, SELFPAY ==
[2019-03-11 21:16] LABS: Magnesium 1.8 mg/dL (1.8-2.4)
== END 2019-03-11 22:35 ==
LOC: NCHCN 22:15
PROVIDERS: PCP Nurse Practitioner Family; Visit Provider Nurse Practitioner Family
DX: E03.9 Hypothyroidism, unspecified (principal); N39.0 Urinary tract infection, site not specified; E83.42 Hypomagnesemia; I10 Essential (primary) hypertension; D64.9 Anemia, unspecified; E11.65 Type 2 diabetes mellitus with hyperglycemia
CPT/HCPCS: 87077; 83735; 87086; 87186

== ENCOUNTER 2019-06-23 00:16 | Outpatient (CLI) | payer MEDICARE, MEDICAID, SELFPAY ==
--- NOTE | 2019-06-23 13:31 | DI.NM_ITS ---
APPROVED REPORT Exam: Exercise Treadmill Patient Location: Out-Patient Room/Bed: Stress Nurse: Bridget Torres RN BMI: 32.41 Baseline Rhythm: Sinus rhythm Indications: Chest pain. Pt needs a pre-surgical screening prior to thyroid surgery planned to be per formed at [facility]. Medical History Medical History: Angina, Diabetes, HTN, Obesity , Smoking Cardiac Medications: Simvastatin/ Zocor Allergies: Prochlorperazine. Codeine. Naproxen. Penicillins. Cardiac Risk Factors: HTN, Hyperlipidemia, DM, FHX of CAD, Smoking, Asthma, COPD Pretest Chest Pain Characteristics: Non-exertional Chest pain Exercise History: Indeterminate Lung Sounds: Clear to auscultation Heart Sounds: Regular Stress Test Details Test: Exercise stress testing was performed using a modified Carloz protocol., Exercise stress testin g was performed using a Carloz protocol. Nuclear Acquisition: Rest Tc-99m/Stress Tc-99m 1 day Rest Isotope: Tc-99m Sestamibi. Dose: 12.2 Date: 06/23/2019 Injection Time: 1145 Stress Isotope: Tc-99m Sestamibi. Dose: 37.2 Date: 06/23/2019 Injection Time: 1350 HR Max Heart Rate (APMHR): 153 bpm Resting HR Supine: 81 bpm Target HR (85% APMHR): 130 bpm Resting HR Standin bpm Max HR Achieved: 146 bpm % of APMHR: 95 Recovery HR: 99 bpm HR response to stress: Normal HR response to stress BP Resting BP Supine: 152/68 mmHg Resting BP Standin/76 mmHg Max BP: 220/80 mmHg Recovery BP: 160/74 mmHg BP response to stress: Normal blood pressure response to stress. ECG Resting ECG: Sinus Rhythm ST Change: Normal Stress ECG: Sinus Tachycardia ST Change: No significant ST segment changes Arrhythmia: rare VPC's Recovery ECG: Sinus Rhythm Recovery ST Change: No significant ST segment changes Recovery Arrhythmia: VPC Clinical Time of Stop for Carloz: 033 Reason for Termination: Fatigue Stress Symptoms: Leg Fatigue, General Fatigue Exercise duration: 3 min31 sec Highest Stage Achieved: Stage 1: 1.7 mph at 10% grade. Exercise capacity: 5.23 METs Functional Capacity: Mildly deminished capacity Angina Score: None Stress ECG Conclusion 1. Sinus for 3 minutes and 31 seconds (5 METS). 2. Exercise was terminated due to fatigue. Heart rate pressure product was 26,000. 3. There was no evidence of ischemia on the ECG portion of this exam Protocol Used: Carloz Protocol Stress Test Summary STAGE Time (mins) Speed (mph) Grade (%) HR BP SYMPTOMS METS Supine 81 152/68 Standing 95 160/76 1 3 1.7 10 136 182/80 4.6 1 min recovery 146 220/80 3 min recovery 115 190/60 6 min recovery 99 160/74 MPI Conclusion Fraction was 60% with no wall motion abnormalities. There was no evidence of ischemia on the imaging portion of this exam This represents a normal SPECT perfusion test.
== END 2019-06-23 00:36 ==
PROVIDERS: PCP Nurse Practitioner Family; Visit Provider Specialist/Technologist Athletic Trainer
DX: R07.9 Chest pain, unspecified (principal); I10 Essential (primary) hypertension; E11.9 Type 2 diabetes mellitus without complications; F17.200 Nicotine dependence, unspecified, uncomplicated; E66.9 Obesity, unspecified; Z82.49 Family history of ischemic heart disease and other diseases of the circulatory system; Z01.810 Encounter for preprocedural cardiovascular examination
CPT/HCPCS: 78452; 93016; 93018; 93017

== ENCOUNTER 2019-07-04 10:11 | Outpatient (REF) | payer MEDICARE, MEDICAID, SELFPAY ==
[2019-07-04 13:58] LABS: Iron 30 ug/dL (50-170); Total Iron Binding Capacity 530 ug/dL (250-450); Transferrin Sat 6 % (15-50)
[2019-07-04 13:59] LABS: Abs Immature Grans 0.03 k/cumm (0.0-0.09); Absolute Basophil Count 0.07 k/cumm (0.0-0.2); Absolute Eosinophil Count 0.25 k/cumm (0.0-0.7); Absolute Lymphocyte Count 2.23 k/cumm (1.2-3.4); Absolute Monocyte Count 0.69 k/cumm (0.11-0.7); Absolute Neutrophil Count 7.92 k/cumm (1.2-6.7); Basophils % 0.6; Eosinophils % 2.2; HCT 35.2 % (36.0-46.0); HGB 10.8 g/dL (12.0-15.5); Immature Grans % 0.3 %; Lymphocytes % 19.9; Mean Corp. HGB Concentration 30.7 g/dL (32.0-36.0); Mean Corpuscular Hemoglobin 24.2 pg (27.0-33.0); Mean Corpuscular Volume 78.9 fL (80-95); Mean Platelet Volume 10.9 fL (8.0-11.0); Monocytes % 6.2; Neutrophils % 70.8; Platelet Count 369 x1000/uL (130-400); RBC 4.46 m/cumm (4.00-5.20); RBC Distribution Width 17.3 % (11.7-14.6); White Blood Cell Count 11.19 k/cumm (4.4-10.8)
[2019-07-04 14:29] LABS: ALT 34 U/L (14-59); AST 35 U/L (15-37); Albumin 3.5 g/dL (3.4-5.0); Alkaline Phosphatase 101 U/L (46-116); BUN 11 mg/dL (7-18); Bilirubin, Total 0.2 mg/dL (0.2-1.0); CREATININE 0.72 mg/dL (0.55-1.02); Calcium 9.2 mg/dL (8.5-10.1); Chloride 101 mmol/L (98-107); Glucose 223 mg/dL (74-106); Magnesium 1.4 mg/dL (1.8-2.4); Potassium 4.3 mmol/L (3.5-5.1); Sodium 138 mmol/L (136-145); Total Protein 7.3 g/dL (6.4-8.2); Vitamin B12 783 pg/mL (193-986)
== END 2019-07-04 10:31 ==
LOC: NCHCN 10:11
PROVIDERS: PCP Nurse Practitioner Family; Visit Provider Nurse Practitioner Family
DX: D64.9 Anemia, unspecified (principal); E03.9 Hypothyroidism, unspecified; E83.42 Hypomagnesemia; R07.9 Chest pain, unspecified; C73 Malignant neoplasm of thyroid gland; R53.83 Other fatigue; J44.9 Chronic obstructive pulmonary disease, unspecified; E11.65 Type 2 diabetes mellitus with hyperglycemia
CPT/HCPCS: 80053; 82607; 83540; 83550; 83735; 85025

== ENCOUNTER 2019-08-14 00:53 | Outpatient (CLI) | payer MEDICARE, MEDICAID, SELFPAY ==
--- NOTE | 2019-08-14 12:48 | DI.MAMMO_ITS ---
EXAM: MAMMO SCREENING CLINICAL HISTORY: SCREENING, Z12.31, [facility], Z00.00 TECHNIQUE: Mammograms were interpreted according to the usual protocol including computer analysis w Zite CAD system, tomosynthesis and C-view imaging. COMPARISON: 2010 through 2017 FINDINGS: The breasts are composed of scattered fibroglandular densities, Breast Density category B. There is mild bilateral scarring related to breast reduction. No suspicious masses or suspicious brandy rocalcifications are seen. Vascular calcifications are incidentally noted. No skin thickening or abnormal axillary lymph nodes are seen. There has been no significant change from prior exams. IMPRESSION: BI-RADS category 2, negative mammogram with benign findings. Yearly screening mammography is recomme nded. Breast density category B, scattered fibroglandular densities.
== END 2019-08-14 01:13 ==
PROVIDERS: PCP Nurse Practitioner Family; Visit Provider Specialist/Technologist Athletic Trainer
DX: Z12.31 Encounter for screening mammogram for malignant neoplasm of breast (principal)
CPT/HCPCS: 77063; 77067

== ENCOUNTER 2019-10-24 02:23 | Outpatient (CLI) | payer MEDICARE, MEDICAID, SELFPAY ==
--- NOTE | 2019-10-24 13:15 | DI.DEXA_ITS ---
EXAM: XR DEXA BONE DENSITY W/WO IVETT CLINICAL HISTORY: PREVENTATIVE CARE, Z00.00, MENOPAUSE, Z78.0 TECHNIQUE: COMPARISON: Comparison 08/23/2010 FINDINGS: Lateral Spine Image: Unremarkable. No compression deformities identified. Left hip: Total T-Score: -1.2. This compares with -0.3 from 2011. Total Z-Score: 0.1 T- and Z-scores: Findings consistent with osteopenia. Lumbar Spine: Total T-Score: 1.3. This compares with 1.5 from 2011. Total Z-Score: 3.2 T- and Z-scores: Within normal limits. IMPRESSION: No evidence of osteoporosis.
== END 2019-10-24 02:43 ==
PROVIDERS: PCP Nurse Practitioner Family; Visit Provider Nurse Practitioner Family
DX: M85.88 Other specified disorders of bone density and structure, other site (principal); Z78.0 Asymptomatic menopausal state
CPT/HCPCS: 77080

== ENCOUNTER 2019-11-11 12:31 | Outpatient (REF) | payer MEDICARE, MEDICAID, SELFPAY ==
[2019-11-11 21:57] LABS: Abs Immature Grans 0.03 k/cumm (0.0-0.09); Absolute Basophil Count 0.07 k/cumm (0.0-0.2); Absolute Monocyte Count 0.83 k/cumm (0.11-0.7); Absolute Neutrophil Count 8.59 k/cumm (1.2-6.7); Basophils % 0.5; HCT 40.5 % (36.0-46.0); HGB 13.1 g/dL (12.0-15.5); Immature Grans % 0.2 %; Mean Corp. HGB Concentration 32.3 g/dL (32.0-36.0); Mean Corpuscular Hemoglobin 28.5 pg (27.0-33.0); Mean Corpuscular Volume 88.2 fL (80-95); Mean Platelet Volume 11.3 fL (8.0-11.0); Monocytes % 6.3; Platelet Count 351 x1000/uL (130-400); RBC 4.59 m/cumm (4.00-5.20); RBC Distribution Width 15.3 % (11.7-14.6); White Blood Cell Count 13.22 k/cumm (4.4-10.8)
[2019-11-11 22:02] LABS: Absolute Lymphocyte Count 3.31 k/cumm (1.2-3.4)
[2019-11-11 22:23] LABS: Iron 74 ug/dL (50-170); Total Iron Binding Capacity 456 ug/dL (250-450); Transferrin Sat 16 % (15-50)
[2019-11-11 23:08] LABS: ALT 65 U/L (14-59); AST 29 U/L (15-37); Albumin 3.7 g/dL (3.4-5.0); Alkaline Phosphatase 105 U/L (46-116); Anion Gap 10.9 mmol/L (3-11); BUN 9 mg/dL (7-18); Bilirubin, Total 0.3 mg/dL (0.2-1.0); CO2 26.1 mmol/L (21.0-32.0); CREATININE 0.87 mg/dL (0.55-1.02); Calcium 9.7 mg/dL (8.5-10.1); Chloride 103 mmol/L (98-107); Glucose 182 mg/dL (74-106); Magnesium 1.4 mg/dL (1.8-2.4); Potassium 4.6 mmol/L (3.5-5.1); Sodium 140 mmol/L (136-145); TSH (W/Ref FT4) 1.37 uIU/mL (0.36-3.74); Total Protein 7.3 g/dL (6.4-8.2); Vitamin B12 663 pg/mL (193-986)
== END 2019-11-11 12:51 ==
LOC: NCHCN 12:31
PROVIDERS: PCP Nurse Practitioner Family; Visit Provider Nurse Practitioner Family
DX: E03.9 Hypothyroidism, unspecified (principal); E83.42 Hypomagnesemia; E11.65 Type 2 diabetes mellitus with hyperglycemia; R53.83 Other fatigue; I10 Essential (primary) hypertension; D72.829 Elevated white blood cell count, unspecified; D64.9 Anemia, unspecified
CPT/HCPCS: 80053; 82607; 83540; 83550; 83735; 84443; 85025

== ENCOUNTER 2020-03-01 15:26 | Outpatient (REF) | payer MEDICARE, MEDICAID, SELFPAY ==
[2020-03-01 21:35] LABS: Bacteria Negative HPF (Negative); C & S Indicated? No; Casts Negative LPF (Negative); Crystals Negative HPF (Negative); Epithelial Cells Few HPF (Negative); Mucus Negative (Negative)
== END 2020-03-01 15:46 ==
LOC: NCHCN 15:26
PROVIDERS: PCP Nurse Practitioner Family; Visit Provider Family Medicine
DX: R35.0 Frequency of micturition (principal); R31.9 Hematuria, unspecified
CPT/HCPCS: 81015

== ENCOUNTER 2020-03-09 08:45 | Outpatient (CLI) | payer MEDICARE, MEDICAID, SELFPAY ==
[2020-03-10 23:43] LABS: COVID-19 RT-PCR Result NEGATIVE (Negative)
== END 2020-03-09 09:05 ==
PROVIDERS: PCP Nurse Practitioner Family; Visit Provider Otolaryngology Otolaryngology/Facial Plastic Surgery
DX: Z03.818 Encounter for observation for suspected exposure to other biological agents ruled out (principal); Z01.818 Encounter for other preprocedural examination
CPT/HCPCS: U0003

== ENCOUNTER 2020-06-10 20:12 | Outpatient (REF) | payer MEDICARE, MEDICAID, SELFPAY ==
[2020-06-10 21:18] LABS: FREE T4 0.66 ng/dL (0.76-1.46); TSH 51.68 uIU/mL (0.36-3.74)
[2020-06-10 21:19] LABS: Hemoglobin A1C 10.5 % (<5.7)
[2020-06-12 14:05] LABS: Thyroglobulin Antibody <1.8 IU/mL (<1.8); Thyroglobulin Tumor Marker 1.4 ng/mL
== END 2020-06-10 20:32 ==
LOC: NCHCN 20:12
PROVIDERS: PCP Nurse Practitioner Family; Visit Provider Nurse Practitioner Family
DX: E03.9 Hypothyroidism, unspecified (principal); E11.65 Type 2 diabetes mellitus with hyperglycemia; C73 Malignant neoplasm of thyroid gland; R53.83 Other fatigue
CPT/HCPCS: 83036; 84432; 84439; 84443; 86800

== ENCOUNTER 2020-07-27 01:08 | Outpatient (CLI) | payer MEDICARE, MEDICAID, SELFPAY ==
--- NOTE | 2020-07-27 | DI.US_ITS ---
EXAM: US ABDOMEN CLINICAL HISTORY: FATTY LIVER DISEASE,K76.0,H/O HEP C AND HEP B,Z86.19 TECHNIQUE: Ultrasound abdomen performed using standard protocol. COMPARISON: CT abdomen and pelvis 14 February 2017 FINDINGS: LIVER: Enlarged at 18.4 cm in length. Increased echogenicity consistent with moderate fatty infiltra tion.. No focal liver lesions are seen.. GALLBLADDER: Status post cholecystectomy. BILIARY SYSTEM: No intrahepatic or extrahepatic biliary ductal dilation. KIDNEYS: Kidneys are symmetric in size. No evidence of renal calculi. No evidence of hydronephrosis. No renal mass or cyst identified. PANCREAS: Normal where visualized. SPLEEN: Not enlarged. ABDOMINAL AORTA AND IVC: Visualized portions normal caliber. ASCITES: None seen. IMPRESSION: Moderate fatty liver disease. No focal mass. DATA REPOSITORY:
== END 2020-07-27 01:09 ==
PROVIDERS: PCP Nurse Practitioner Family; Visit Provider Nurse Practitioner Family
DX: K76.0 Fatty (change of) liver, not elsewhere classified (principal); Z86.19 Personal history of other infectious and parasitic diseases
CPT/HCPCS: 76700

== ENCOUNTER 2020-08-09 11:40 | Outpatient (REF) | payer MEDICARE, MEDICAID, SELFPAY ==
[2020-08-09 21:42] LABS: Abs Immature Grans 0.09 10^3/uL (0.0-0.06); Absolute Eosinophil Count 0.42 10^3/uL (0.0-0.7); Absolute Lymphocyte Count 3.72 10^3/uL (1.2-3.4); Absolute Monocyte Count 1.19 10^3/uL (0.1-0.8); Eosinophils % 2.6; HCT 26.8 % (36.0-46.0); HGB 7.7 g/dL (11.2-15.7); Immature Grans % 0.6; Lymphocytes % 22.8; MCH 22.1 pg (27.0-33.0); MCHC 28.7 % (32.0-36.0); MCV 76.8 fL (80-95); MPV 9.7 fL (8.0-11.0); Monocytes % 7.3; Neutrophils % 65.7; Nucleated RBC 0 %; Platelet Count 502 10^3/uL (130-400); RBC 3.49 10^6/uL (3.93-5.22); RDW 15.5 % (11.7-14.6); RDW-SD 42.9 fL; WBC 16.33 10^3/uL (4.4-10.8)
[2020-08-09 21:43] LABS: Absolute Basophil Count 0.16 10^3/uL (0.0-0.2); Absolute Neutrophil Count 10.73 10^3/uL (1.2-6.7)
[2020-08-09 22:00] LABS: Iron 16 ug/dL (50-170); Total Iron Binding Capacity 605 ug/dL (250-450); Transferrin Sat 3 % (15-50)
[2020-08-09 22:26] LABS: ALT 31 U/L (14-59); AST 24 U/L (15-37); Albumin 3.5 g/dL (3.4-5.0); Alkaline Phosphatase 107 U/L (46-116); Anion Gap 7.4 mmol/L (3-11); BUN 13 mg/dL (7-18); Bilirubin, Total 0.3 mg/dL (0.2-1.0); CO2 26.6 mmol/L (21.0-32.0); Calcium 9.4 mg/dL (8.5-10.1); Chloride 99 mmol/L (98-107); Estimated GFR 55.14 (mL/min/1.73m2); Ferritin 5 ng/mL (8-252); Glucose 322 mg/dL (74-106); Magnesium 1.8 mg/dL (1.8-2.4); Potassium 5.3 mmol/L (3.5-5.1); Sodium 133 mmol/L (136-145); TSH (W/Ref FT4) 18.55 uIU/mL (0.36-3.74); Total Protein 7.4 g/dL (6.4-8.2); Vitamin B12 784 pg/mL (193-986)
[2020-08-09 22:42] LABS: FREE T4 1.15 ng/dL (0.76-1.46)
[2020-08-11 12:38] LABS: Hepatitis A Antibody IgM Negative (Negative); Hepatitis B Core Antibody Positive (Negative); Hepatitis B surface Ag Negative (Negative); Hepatitis C Ab w Rflx HCV PCR Reactive (Negative)
[2020-08-12 14:32] LABS: HCV RNA Qualitative Undetected (Undetected)
[2020-08-12 15:39] LABS: HBc IgM Ab, S Negative (Negative)
== END 2020-08-09 11:41 | disposition home or self-care (01) ==
LOC: NCHCN 11:40
PROVIDERS: PCP Nurse Practitioner Family; Visit Provider Nurse Practitioner Family
DX: R53.83 Other fatigue (principal); E03.9 Hypothyroidism, unspecified; E83.42 Hypomagnesemia; K74.60 Unspecified cirrhosis of liver; K76.0 Fatty (change of) liver, not elsewhere classified; Z86.19 Personal history of other infectious and parasitic diseases
CPT/HCPCS: 80053; 86704; 86709; 86803; 87340; 87522; 82607; 82728; 83540; 83550; 83735; 84439; 84443; 85025; 86705

== ENCOUNTER → 2020-08-12 14:15 | Outpatient (BNVA) | payer MEDICARE, MEDICAID, SELFPAY | PROVIDERS: PCP Nurse Practitioner Family; Referring Provider Nurse Practitioner Family; Visit Provider Physical Therapy Assistant | DX: D64.9 Anemia, unspecified (principal); J44.9 Chronic obstructive pulmonary disease, unspecified; E11.9 Type 2 diabetes mellitus without complications; I10 Essential (primary) hypertension | CPT/HCPCS: 99214 ==

== ENCOUNTER 2020-08-17 08:58 | Outpatient (CLI) | payer MEDICARE, MEDICAID, SELFPAY ==
[2020-08-17 13:27] LABS: Abs Immature Grans 0.17 10^3/uL (0.0-0.06); Absolute Lymphocyte Count 3.08 10^3/uL (1.2-3.4); Basophils % 1.1; Eosinophils % 3.2; HCT 25.3 % (36.0-46.0); HGB 7.3 g/dL (11.2-15.7); Immature Grans % 1.1; Lymphocytes % 20.4; MCH 21.3 pg (27.0-33.0); MCHC 28.9 % (32.0-36.0); MPV 9.3 fL (8.0-11.0); Monocytes % 6.6; Neutrophils % 67.6; Nucleated RBC 0 %; Platelet Count 500 10^3/uL (130-400); RBC 3.42 10^6/uL (3.93-5.22); RDW 15.8 % (11.7-14.6); RDW-SD 42.2 fL; WBC 15.11 10^3/uL (4.4-10.8)
[2020-08-17 13:32] LABS: Absolute Basophil Count 0.17 10^3/uL (0.0-0.2); Absolute Eosinophil Count 0.48 10^3/uL (0.0-0.7); Absolute Neutrophil Count 10.21 10^3/uL (1.2-6.7)
[2020-08-17 13:55] LABS: Anisocytosis 1+; Diff Comment RBC Morph Reviewed; Hypochromasia 3+; Microcytosis 3+; Polychromasia Present
[2020-08-17 14:05] LABS: INR 0.9 (0.9-1.1); Prothrombin Time 9.5 sec (9.3-11.0)
[2020-08-17 14:09] LABS: GGT 64 U/L (5-55)
[2020-08-17 14:43] LABS: C-Reactive Protein 0.13 mg/dL (0.0-0.3)
[2020-08-18 10:36] LABS: Poikilocytes 2+
== END 2020-08-17 08:59 | disposition home or self-care (01) ==
LOC: LBO 09:00
PROVIDERS: PCP Nurse Practitioner Family; Visit Provider Surgery
DX: C73 Malignant neoplasm of thyroid gland (principal); D50.9 Iron deficiency anemia, unspecified; D47.3 Essential (hemorrhagic) thrombocythemia; E11.65 Type 2 diabetes mellitus with hyperglycemia; D72.829 Elevated white blood cell count, unspecified
CPT/HCPCS: 36415; 86850; 86900; 86901; 82977; 85025; 85610; 86140

== ENCOUNTER → 2020-08-19 09:59 | Outpatient (BNVA) | payer MEDICARE, MEDICAID, SELFPAY | PROVIDERS: PCP Nurse Practitioner Family; Referring Provider Nurse Practitioner Family; Visit Provider Surgery | DX: S05.8X1A Other injuries of right eye and orbit, initial encounter (principal); W06.XXXA Fall from bed, initial encounter; D50.9 Iron deficiency anemia, unspecified; K21.9 Gastro-esophageal reflux disease without esophagitis; I10 Essential (primary) hypertension | CPT/HCPCS: 99212; 99213 ==

== ENCOUNTER 2020-08-19 11:38 | Emergency (ER) | payer MEDICARE, MEDICAID, SELFPAY ==
[2020-08-19] VITALS (93 sets, daily range): BP systolic 121–160; BP diastolic 50–73; PULSE 77–106; RESP 14–35; TEMP 36.4–37.1; O2SAT 88–99
--- NOTE | 2020-08-19 11:55 | ED.GENADUL_ITS ---
Discharge Plan Disposition Patient Disposition: [facility] Condition: Stable Discharge Details Clinical Impression: Blow-out fracture of orbital floor, Anemia Primary Care Provider: Joellen Molina ED Provider: Pauline Souza Home Meds and New Rx's Prescriptions: Continued amitriptyline 100 mg tablet 100 mg PO DAILY RF: 0 insulin asp prt-insulin aspart [Novolog Mix 70-30FlexPen U-100] 100 UNIT/1 ML insulin pen 50 unit Sub-Q AC RF: 0 levothyroxine 137 mcg capsule 137 mcg PO DAILY RF: 0 ferrous sulfate 325 mg (65 mg iron) tablet 325 mg PO Q OTHER DAY RF: 0 simvastatin 40 MG tablet 40 mg PO HS RF: 0 metformin [Glucophage] 1,000 MG tablet 1,000 mg PO BID RF: 0 albuterol sulfate [ProAir HFA] 200 PUFF HFA aerosol inhaler 2 puff Inhalation Q6H PRN PRNRF: 0 Bydureon 2 MG/0.65 ML pen injector 2 mg SQ .QMONDAY RF: 0 enalapril maleate 20 mg Tablet 30 mg PO DAILY RF: 0 No Action polyethylene glycol 3350 17 gram/dose powder 238 g PO ONCE Qty: 238 RF: 0 bisacodyl [Dulcolax (bisacodyl)] 5 mg tablet,delayed release (DR/EC) 5 mg PO ONCE Qty: 4 RF: 0 triamcinolone acetonide 0.5 % ointment 0.5 % Topical DAILY Qty: 1 RF: 5 aspirin 81 MG tablet,chewable 81 mg PO DAILY RF: 0 MEDICAL MARIJUANA Inhalation DAILY RF: 0 calcium carbonate-vitamin D3 1 EACH tablet 1 ea PO DAILY RF: 0 lorazepam [Ativan] 1 MG tablet 1 mg PO BID PRN RF: 0 Omeprazole Magnesium [Prilosec] 10 MG SUSPDR.PKT 20 mg PO DAILY RF: 0 magnesium L-lactate [Magtab] 84 mg tablet extended release 84 mg PO BID RF: 0 cholecalciferol (vitamin D3) 10 mcg (400 unit) tablet 10 mcg PO TID RF: 0 nicotine [Nicoderm CQ] 14 mg/24 hr patch 24 hour 1 patch transdermal DAILY RF: 0 nicotine 7 mg/24 hr patch 24 hour 1 patch transdermal Q24H RF: 0 pantoprazole [Protonix] 40 mg tablet,delayed release (DR/EC) 40 mg PO DAILY Qty: 30 RF: 12 pramipexole [Mirapex] 0.5 MG tablet 0.5 mg PO HS RF: 0 Levemir FlexTouch U-100 Insuln 300 UNITS/3 ML insulin pen 55 units Sub-Q HS RF: 0 gabapentin 300 MG capsule 300 mg PO TID RF: 0 Discharge Instructions Instructions: Facial Fracture (ED), Head Injury (ED), Anemia (ED) Additional Instructions: Go directly to Eye clinic on 4B at [facility] at 9:30 AM to see opth[address]ologist Dr. Thomason. Nothing to eat or drink after midnight tonight. Take Tylenol as needed place ice to the area. Go directly to [facility] or call 911 if you have any worsening vomiting, blurry vision, double vision increase pain or any concerns. Follow up with primary care provider in 3-5 days. Return to ED sooner if any worsening or concerns. Discharge Data Discharge Date/Time-TO BE ENTERED AT DEPARTURE: 08/19/20 19:38 Medical Decision Making <HELEN Cardenas - Last Filed: 08/20/20 08:57> This is a 69-year-old female with a complicated past medical history sent here today per Dr. Villatoro after being evaluated in the clinic. She is recommending that the patient get 2 units of blood, 300 mg IV iron, discontinue aspirin for 2 weeks. Given the fall yesterday morning, will obtain CT of the head and face as well. Patient has a declining H&H but no clear source of bleeding. Awaiting outpatient colonoscopy for further evaluation but awaiting more medical stability first. I will obtain routine laboratory values, order the units of blood and iron. Will obtain CT imaging of head and face and then reassess. Will obtain type and screen, 2 units of blood Laboratory values reveal a white blood cell count of 16.47, appears as the patient has chronic leukocytosis, hemoglobin 7.2 hematocrit 24.8 platelet count 452. INR 1.0, creatinine 1.1 with a GFR estimated at 49.39. IV iron given, blood is transfusing I received a call from radiology with the report of the facial and head CT. At this time I did ask Dr. Gan to evaluate the patient personally given the facial trauma, please see her note. Images were pushed to [facility] and [facility] a callback from facial trauma. I did make patient aware of the CT findings. She is resting comfortably, has no acute questions or concerns. Medical Records Medical records reviewed: Yes I reviewed the patient's medical records. Imaging Data Radiologic Study: Attestation: I personally reviewed and interpreted this imaging study as follows: Imaging: CT Scan Radiologist's impression: CT imaging of face and head read by radiology as prominent right orbital blowout fracture with caudal herniation of orbital fat and part of the inferior rectus muscle into the subjacent right maxillary sinus. Orbital soft tissue extends 2.3 cm caudally into the maxillary sinus. There is fluid also noted in the maxillary sinus. There is also a nondisplaced fracture of the lateral wall of the right maxillary sinus. There are no other fractures. No acute intracranial findings. Lab Data Lab results reviewed: Yes I reviewed the patient's lab results. Lab results narrative: Laboratory Tests Range/Units 08/19/20 08/19/20 08/19/20 11:55 11:55 11:55 WBC (4.4-10.8) 10^3/uL 16.47 H RBC (3.93-5.22) 10^6/uL 3.39 L Hgb (11.2-15.7) g/dL 7.2 L Hct (36.0-46.0) % 24.8 L MCV (80-95) fL 73.2 L MCH (27.0-33.0) pg 21.2 L MCHC (32.0-36.0) % 29.0 L RDW (11.7-14.6) % 15.8 H Plt Count (130-400) 10^3/uL 452 H MPV (8.0-11.0) fL 9.1 Immature Gran % 0.9 Neutrophils % 72.3 Lymphocytes % 16.6 Monocytes % 7.2 Eosinophils % 2.2 Basophils % 0.8 Nucleated RBC % % 0 Absolute Neutrophils (1.2-6.7) 10^3/uL 11.91 H Absolute Lymphocytes (1.2-3.4) 10^3/uL 2.73 Absolute Monocytes (0.1-0.8) 10^3/uL 1.19 H Absolute Eosinophils (0.0-0.7) 10^3/uL 0.36 Absolute Basophils (0.0-0.2) 10^3/uL 0.13 RBC Morphology See below Hypochromasia 1+ Microcytosis 2+ PT (9.3-11.0) sec 9.9 INR (0.9-1.1) 1.0 Sodium (136-145) mmol/L 135 L Potassium (3.5-5.1) mmol/L 4.3 Chloride (98-107) mmol/L 99 Carbon Dioxide (21.0-32.0) mmol/L 27.7 Anion Gap (3-11) mmol/L 8.3 BUN (7-18) mg/dL 17 Creatinine (0.55-1.02) mg/dL 1.1 H Estimated GFR/1.73 m2 (mL/min/1.73m2) 49.39 Glucose (74-106) mg/dL 108 H Calcium (8.5-10.1) mg/dL 9.3 Magnesium (1.8-2.4) mg/dL 1.8 Total Bilirubin (0.2-1.0) mg/dL 0.3 AST (15-37) U/L 19 ALT (14-59) U/L 27 Alkaline Phosphatase (46-116) U/L 109 Troponin I (<0.06) ng/mL < 0.05 Total Protein (6.4-8.2) g/dL 7.8 Albumin (3.4-5.0) g/dL 3.3 L Lipase (73-393) U/L 138 Patient ABO/Rh Antibody Screen Crossmatch Range/Units 08/19/20 11:55 WBC (4.4-10.8) 10^3/uL RBC (3.93-5.22) 10^6/uL Hgb (11.2-15.7) g/dL Hct (36.0-46.0) % MCV (80-95) fL MCH (27.0-33.0) pg MCHC (32.0-36.0) % RDW (11.7-14.6) % Plt Count (130-400) 10^3/uL MPV (8.0-11.0) fL Immature Gran % Neutrophils % Lymphocytes % Monocytes % Eosinophils % Basophils % Nucleated RBC % % Absolute Neutrophils (1.2-6.7) 10^3/uL Absolute Lymphocytes (1.2-3.4) 10^3/uL Absolute Monocytes (0.1-0.8) 10^3/uL Absolute Eosinophils (0.0-0.7) 10^3/uL Absolute Basophils (0.0-0.2) 10^3/uL RBC Morphology Hypochromasia Microcytosis PT (9.3-11.0) sec INR (0.9-1.1) Sodium (136-145) mmol/L Potassium (3.5-5.1) mmol/L Chloride (98-107) mmol/L Carbon Dioxide (21.0-32.0) mmol/L Anion Gap (3-11) mmol/L BUN (7-18) mg/dL Creatinine (0.55-1.02) mg/dL Estimated GFR/1.73 m2 (mL/min/1.73m2) Glucose (74-106) mg/dL Calcium (8.5-10.1) mg/dL Magnesium (1.8-2.4) mg/dL Total Bilirubin (0.2-1.0) mg/dL AST (15-37) U/L ALT (14-59) U/L Alkaline Phosphatase (46-116) U/L Troponin I (<0.06) ng/mL Total Protein (6.4-8.2) g/dL Albumin (3.4-5.0) g/dL Lipase (73-393) U/L Patient ABO/Rh A Positive Antibody Screen Negative Crossmatch See Detail ECG Data Attestation: I personally reviewed and interpreted this ECG (s) as follows: Interpretation: Please see official report by Dr. Cesar. Sinus rhythm, ventr icular rate of 81. No STEMI <Pauline Souza - Last Filed: 08/19/20 21:14> 1632: Assumed care from off going provider HELEN Concepcion pending [facility] trauma. Please see his note for general HPI and Physical. Spoke with Dr. Ivey at [facility] with trauma, he recommends C-spine x-ray, chest x-ray and consult with maxillofacial. He states that if she needs to be evaluated night she will be trauma consult. 1640: Spoke with Dr. Lo with [facility] maxillofacial specialist and discussed patient case in detail. After further questioning with the patient there was positive loss of consciousness. Patient does have pain with looking to her right eye, per patient. Maxillofacial doctor to call me back. 1702: Spoke with [facility] transfer center states that Dr. Ivey is the accepting physician, patient to be transferred to [facility] ER for trauma consult. 1730: Spoke again with Dr. Lo with maxillofacial who changes plan after speaking with plastic surgery and ENT. She does not recommend transfer to the ER urgently, she does recommend ophthalmology follow-up with patient to be seen by ophthalmology tomorrow. Will discuss plan for maxillofacial appointment next week with patient. 1826: Spoke with Riki with Opthamology at [facility] regarding patient care and details, he will see her tomorrow in clinic at 0930 am, they reccomend NPO after midnight for possible need for surgical repair. Divakar with ENT also on line. Plan is to discharge the patient after blood transfusion with strict instructions to present to [facility] eye clinic for pain at 9:30 AM. Phone number [phone]. I did reevaluate patient extraocular and I did question her about any visual disturbances of blurry vision or double vision. She denies blurry vision or double vision. Patient is done with her second unit of blood transfusion discussed plan of care with her, she verbalizes understanding with this time. Discussed strict return instructions and need to return immediately to the ER for any confusion vomiting dizziness lightheadedness. I also did discuss that if she starts to have any blurry vision or visual disturbances inability to move her eye to present immediately to [facility] or to return to this ED. She agrees to follow-up with animal ride attendant at 9:30 in the morning. HPI <HELEN Cardenas - Last Filed: 08/20/20 08:57> General Mode of arrival: ambulatory . Date/Time Provider Initiated Documentation: 08/19/20 11:46 . Limitations to Documentation: no limitations . Information obtained by: patient . HPI Narrative: This is a 69-year-old female who was sent in by surgery for evaluation. Patient has a past medical history that includes cirrhosis, alcohol abuse but sober for quite some time now, COPD, depression, diabetes, GERD, hepatitis B, hepatitis C, TIA, hypertension, hypothyroidism, migraines, obesity, portal hypertension the PTSD, current smoker, and anemia. She has been worked up as an outpatient for anemia, worsening H&H. Plan was for colonoscopy however her thyroid levels were not controlled and they wanted to get better control of her medical conditions before pursuing a procedure. Patient states that she was getting out of bed yesterday, fell striking her right side of the face and head on a dresser, felt weak, does not believe that she lost consciousness. Upon evaluation today when she saw Dr. Villatoro, Dr. Villatoro wanted to pursue further work-up but was unable to as an outpatient. I personally spoke with Dr. Villatoro who recommended CT head and face, 2 units of blood to be given, 300 mg IV iron, and to DC aspirin for the next 2 weeks. She feels as though if the work-up is unremarkable she can be safely discharged and she will be continue to follow as an outpatient. Most recent outpatient laboratory values reveal hemoglobin of 7.2. She did have an EGD 2 years ago and there were no varices. Patient reports right sided facial pain, moderate in nature. Patient denies any visual loss or changes. Reports that she is able to move her eye in all directions. Denies any active headache, neck pain, chest pain, shortness of breath, abdominal pain, nausea, vomiting. Denies bright red blood in her stools or black tarry stools. Related Data Home Medications Medication Instructions Recorded Confirmed pramipexole [Mirapex] 0.5 mg PO HS 04/30/13 08/19/20 simvastatin 40 mg PO HS 04/30/13 08/19/20 Bydureon 2 mg SQ .QMONDAY 02/22/15 08/19/20 albuterol sulfate [ProAir HFA] 2 puff INHALATION Q6H PRN PRN 02/22/15 08/19/20 metformin [Glucophage] 1,000 mg PO BID 02/22/15 08/19/20 Levemir FlexTouch U-100 Insuln 55 units SUB-Q HS 06/07/15 08/19/20 aspirin 81 mg PO DAILY tab-cap 11/13/16 08/19/20 gabapentin 300 mg PO TID 08/10/17 08/19/20 Medical Marijuana INHALATION DAILY 10/04/17 06/06/19 Omeprazole Magnesium [Prilosec] 20 mg PO DAILY packet 10/04/17 08/19/20 calcium carbonate-vitamin D3 1 ea PO DAILY 10/04/17 08/19/20 insulin asp prt-insulin aspart 50 unit SUB-Q AC 10/04/17 08/19/20 [Novolog Mix 70-30FlexPen U-100] lorazepam [Ativan] 1 mg PO BID PRN tab-cap 10/04/17 08/19/20 amitriptyline 100 mg tablet 100 mg PO DAILY tab 04/22/18 08/19/20 enalapril maleate 30 mg PO DAILY 02/21/19 08/19/20 triamcinolone acetonide 0.5 % 0.5 % TOPICAL DAILY #1 tube 06/06/19 08/19/20 topical ointment cholecalciferol (vitamin D3) 10 10 mcg PO TID tab 08/11/20 08/19/20 mcg (400 unit) tablet ferrous sulfate 325 mg (65 mg 325 mg PO Q OTHER DAY tab 08/11/20 08/19/20 iron) tablet levothyroxine 137 mcg capsule 137 mcg PO DAILY 08/11/20 08/19/20 magnesium L-lactate 84 mg 84 mg PO BID 08/11/20 08/19/20 tablet,extended release nicotine 14 mg/24 hr daily 1 patch TRANSDERMAL DAILY 08/11/20 08/19/20 transdermal patch nicotine 7 mg/24 hr daily 1 patch TRANSDERMAL Q24H 08/11/20 08/19/20 transdermal patch bisacodyl 5 mg tablet,delayed 5 mg PO ONCE #4 tab 08/12/20 08/19/20 release pantoprazole 40 mg tablet,delayed 40 mg PO DAILY #30 tab 08/12/20 08/19/20 release polyethylene glycol 3350 17 238 g PO ONCE #238 g 08/12/20 08/19/20 gram/dose oral powder Previous Rx's Medication Instructions Recorded triamcinolone acetonide 0.5 % 0.5 % TOPICAL DAILY #1 tube 06/06/19 topical ointment bisacodyl 5 mg tablet,delayed 5 mg PO ONCE #4 tab 08/12/20 release pantoprazole 40 mg tablet,delayed 40 mg PO DAILY #30 tab 08/12/20 release polyethylene glycol 3350 17 238 g PO ONCE #238 g 08/12/20 gram/dose oral powder Allergies Allergy/AdvReac Type Severity Reaction Status Date / Time prochlorperazine edisylate Allergy Severe Anaphylaxsi Unverified 08/19/20 11:49 [From Compazine] s prochlorperazine maleate Allergy Severe Anaphylaxsi Unverified 08/19/20 11:49 [From Compazine] s codeine AdvReac Intermediate stomach in Unverified 08/19/20 11:49 knot, and back pains naproxen sodium [From Aleve] AdvReac Intermediate light Unverified 08/19/20 11:49 headed, vomit Penicillins AdvReac Unverified 08/19/20 11:49 General Stated Complaint: GenMedical JAMIL: 3 Review of Systems <HELEN Cardenas - Last Filed: 08/20/20 08:57> Constitutional Constitutional: Denies fatigue, Denies fever(s) and Reports headache(s) Eyes Eyes: Denies blurry vision, Denies change in vision and Reports eye pain ENT Ears, Nose, Mouth, and Throat: Reports headache(s) and Denies neck pain Cardiovascular Cardiovascular: Denies chest pain and Denies dyspnea Respiratory Respiratory: Denies cough and Denies dyspnea Gastrointestinal Gastrointestinal: Denies abdominal pain, Denies nausea and Denies vomiting Genitourinary Genitourinary: Denies dysuria Musculoskeletal Musculoskeletal: Denies neck pain Integumentary/Breasts Skin/Breast: Denies rash Neurologic Neurologic: Reports headache(s) Endocrine Endocrine: Denies fatigue Hematologic/Lymphatic Hematologic/Lymphatic: Denies easy bleeding PFSH <HELEN Cardenas - Last Filed: 08/20/20 08:57> Medical History Cirrhosis Contact dermatitis and eczema (01/06/16) COPD (chronic obstructive pulmonary disease) Depression DM (diabetes mellitus) Fatigue Fatty liver GERD (gastroesophageal reflux disease) Hepatomegaly History of hepatitis B History of hepatitis C History of TIA (transient ischemic attack) 02/21/2019. Evaluated at [facility] ED patient left without complete work-up. HTN (hypertension) Hypothyroidism Migraine headache Mixed incontinence (08/30/17) Obesity Portal hypertension PTSD (post-traumatic stress disorder) Restless leg syndrome Smoker Stress incontinence Subacute vulvitis (12/20/17) Sx c/w lichens sclerosus. Rx with Clobetasol. 2018. Thyroid cancer 06/06/2019. Patient reports that she is to undergo a total thyroidectomy at [facility]. She is unsure of the type of cancer Tubular adenoma Surgical History Abdominal hysterectomy Cholecystectomy Colonoscopy - MAC (11/27/16) History of thyroidectomy 03/2020 at [facility] Reduction mammoplasty tension free vaginal tape (TOT) 10/2013. Social History Smoking/Tobacco Use Status: Current every day Tobacco Type: cigarettes Smoking packs per day: 0.5 Smoking cigarettes per day: 10.0 Smoking risk assessment performed?: Yes Alcohol Intake: never Drug use: Daily Substance use type: marijuana Number of Children: 0 Seatbelt use: always Do you feel safe at home: Yes Do you feel safe in your relationship?: Yes Female Reproductive History Menstrual Menopause type: natural History History 0 Para Hx # Term Pregnancies Multiple births Hx # Pregnancies Ectopic pregnancies AB induced Hx Number of Living Children AB spontaneous Exam <HELEN Cardenas - Last Filed: 08/20/20 08:57> Const General: cooperative, healthy appearing and no acute distress Orientation: alert, awake and oriented x3 HENMT Head: normal to inspection, no palpable skull fracture, normocephalic and atraumatic Ears: external ears normal, TM's normal bilaterally and EAC's normal General nose exam: external nose normal Face and sinus: ecchymosis and sinus tenderness maxillary Mouth: moist mucous membranes Throat: posterior oropharynx normal Eyes Alignment and Position: alignment normal Periorbital: periorbital findings abnormal right periorbital swelling, periorbital tenderness, periorbital ecchymosis and periorbital crepitus Eyelids: eyelid abnormality right upper eyelid swelling, tenderness and other (Ecchymosis) and right lower eyelid swelling, tenderness and other (Ecchymosis) Conjunctivae: conjunctival abnormality right subconjunctival hemorrhage Sclera: sclerae normal Cornea: corneas normal Pupils: PERRL EOM: EOM intact bilaterally Direct ophthalmoscopy: normal light reflex Neck Neck: normal visual inspection, full ROM, trachea midline, supple and nontender Resp Effort & Inspection: normal respiratory effort and able to speak in complete sentences Auscultation: clear to auscultation bilaterally Cardio Rate: regular rate Rhythm: regular rhythm GI Inspection: obesity Palpation: soft, not firm, no guarding, no pulsatile masses and nontender Auscultation: normal bowel sounds Back/Spine/Pelvis Back: No back tenderness Skin General skin exam: no rashes or lesions noted Neuro General: patient alert, patient awake, patient oriented x3, moves all extremities and no focal motor deficits Cranial Nerves: CN's II-XI intact bilaterally Cognition: normal cognition Speech: speech normal Gait: normal gait Motor: muscle tone normal throughout Sensory Exam: no sensory deficits noted Extrem General: normal to inspection, full ROM and capillary refill normal Psych Appearance: grossly normal Mental Status: mental status grossly normal Course <HELEN Cardenas - Last Filed: 08/20/20 08:57> Vital Signs Vital signs: Vital Signs Temperature 36.4 C L 08/19/20 11:46 Pulse 90 08/19/20 11:46 Respiratory Rate 18 08/19/20 11:46 Blood Pressure 160/61 H 08/19/20 11:46 Pulse Oximetry 97 08/19/20 11:46 Temperature 36.4 C L 08/19/20 11:46 Temperature Source Temporal Artery Scan 08/19/20 11:46 Pulse 90 08/19/20 11:46 Respiratory Rate 18 08/19/20 11:46 Blood Pressure 160/61 H 08/19/20 11:46 Blood Pressure Position Sitting 08/19/20 11:46 Pulse Oximetry 97 08/19/20 11:46 Oxygen Delivery Method Room Air 08/19/20 11:46 Oxygen Flow Rate 0 08/19/20 11:46 Sign Out <HELEN Cardenas - Last Filed: 08/20/20 08:57> Sign Out Data: Sign Out Comment: At time of signout, laboratory values and CT completed. Patient has received her iron and is in the process of receiving her 2 units of blood. Awaiting facial trauma consultation from [facility] given her abnormal CT findings Last updated by Jesus Gates PA at 08/19/20 16:06
--- NOTE | 2020-08-19 12:15 | RT.EKG_ITS ---
APPROVED REPORT Exam: Resting ECG Patient Location: E HR:81 bpm ECG Measurements Heart Rate 81 AXIS NH 174 P 70 QRSd 87 QRS -9 QT 353 T 52 QTc 409 Conclusion Sinus rhythm...normal P axis, V-rate 60- 99 Low voltage, precordial leads...precordial leads <1.0mV
--- NOTE | 2020-08-19 12:15 | DI.CT_ITS ---
EXAM: CT HEAD FACIAL WO CLINICAL HISTORY: Fall, R face and head injury TECHNIQUE: COMPARISON: CT CT HEAD - STROKE PROTOCOL from 02/21/2019 FINDINGS: Maxillofacial CT scan: There is a prominent blowout fracture of the right orbit with significant caudal herniation of orbita l contents into the ipsilateral maxillary sinus, including inferior rectus muscle.. Orbital contents descent 2.3 cm into the maxillary sinus and there is prominent displaced orbital floor spicule cauda l medially displaced. There is air within the fractured right orbital cavity but not within the retr o conal compartment. There is no layering blood within the ipsilateral orbital globe. There is a no ndisplaced fracture of the lateral wall of the right maxillary sinus. The pterygoid plates are intac t. Opposite-left orbit appears unremarkable. There is no evidence of nasal bone fracture. BRAIN CT SCAN WITHOUT IV CONTRAST: There are no skull fractures. With exception of the right maxillary sinus the remainder of the para nasal sinuses and mastoid air cells are clear. There is no evidence of basal skull fracture.. There is no evidence of intracranial hemorrhage, mass effect, or shift of midline structures. No extra-ax ial fluid collections. Ventricles are not enlarged or shifted and there is no blood within the ventr icular system nor within the basal cisterns. IMPRESSION: 1. Prominent right orbital blowout fracture with caudal herniation of orbital fat and part of the inf erior rectus muscle into the subjacent right maxillary sinus. Orbital soft tissue extends 2.3 cm cau dally into the maxillary sinus. There is fluid also noted maxillary sinus. There is also a nondispl aced fracture of the lateral wall of the right maxillary sinus. There are no other fractures. 2. No acute intracranial findings. No evidence of intracranial hemorrhage. Some periventricular hy podensity is consistent with chronic small vessel disease. There is no evidence of obvious acute ter ritorial infarction. Report called by myself to the emergency room provider following completion of the study 08/19/2020
[2020-08-19 12:33] LABS: Abs Immature Grans 0.14 10^3/uL (0.0-0.06); Absolute Basophil Count 0.13 10^3/uL (0.0-0.2); Absolute Neutrophil Count 11.91 10^3/uL (1.2-6.7); Basophils % 0.8; Eosinophils % 2.2; HCT 24.8 % (36.0-46.0); HGB 7.2 g/dL (11.2-15.7); Immature Grans % 0.9; Lymphocytes % 16.6; MCH 21.2 pg (27.0-33.0); MCV 73.2 fL (80-95); MPV 9.1 fL (8.0-11.0); Monocytes % 7.2; Neutrophils % 72.3; Nucleated RBC 0 %; Platelet Count 452 10^3/uL (130-400); RBC 3.39 10^6/uL (3.93-5.22); RDW 15.8 % (11.7-14.6); WBC 16.47 10^3/uL (4.4-10.8)
[2020-08-19 12:36] LABS: Absolute Eosinophil Count 0.36 10^3/uL (0.0-0.7); Absolute Lymphocyte Count 2.73 10^3/uL (1.2-3.4); Absolute Monocyte Count 1.19 10^3/uL (0.1-0.8)
[2020-08-19 12:37] LABS: Diff Comment RBC Morph Reviewed
[2020-08-19 12:43] LABS: Hypochromasia 1+; Microcytosis 2+; Prothrombin Time 9.9 sec (9.3-11.0)
[2020-08-19 12:49] LABS: ALT 27 U/L (14-59); AST 19 U/L (15-37); Albumin 3.3 g/dL (3.4-5.0); Alkaline Phosphatase 109 U/L (46-116); Anion Gap 8.3 mmol/L (3-11); BUN 17 mg/dL (7-18); Bilirubin, Total 0.3 mg/dL (0.2-1.0); CO2 27.7 mmol/L (21.0-32.0); CREATININE 1.1 mg/dL (0.55-1.02); Calcium 9.3 mg/dL (8.5-10.1); Chloride 99 mmol/L (98-107); Estimated GFR 49.39 (mL/min/1.73m2); Glucose 108 mg/dL (74-106); Lipase 138 U/L (73-393); Magnesium 1.8 mg/dL (1.8-2.4); Potassium 4.3 mmol/L (3.5-5.1); Sodium 135 mmol/L (136-145); Total Protein 7.8 g/dL (6.4-8.2); Troponin I < 0.05 ng/mL (<0.06)
[2020-08-19] MEDS: IRON SUCROSE COMPLEX 300 MG in Normal Saline 250 ML 167 MG IVPB (13:16)
--- NOTE | 2020-08-19 16:15 | DI.RAD_ITS ---
EXAM: XR CHEST 2V PA LATERAL CLINICAL HISTORY: Fall, Trauma TECHNIQUE: 2D digital imaging was performed. COMPARISON: CR CHEST 2 VIEWS PA,LAT from 06/25/2009 CR CHEST 2 VIEWS PA,LAT from 06/25/2009 CR RIGHT SHOULDER COMPLETE from 06/03/2015 CR PORTABLE CHEST ONE VIEW from 06/05/2015 CR THORACIC SPINE from 08/10/2017 FINDINGS: MEDIASTINUM: Mildly ectatic aorta. HEART: Normal. PULMONARY VASCULATURE: Normal. LUNGS: Clear. PLEURAL SPACE: No pleural effusion or pneumothorax. BONE:Degenerative disc changes in the lower thoracic spine. OTHER FINDINGS:None IMPRESSION: No acute pulmonary findings. DATA REPOSITORY: RADIATION DOSE DELIVERED:
--- NOTE | 2020-08-19 16:15 | DI.RAD_ITS ---
EXAM: XR CERVICAL SP BEASLEY TRAUMA 2-3V CLINICAL HISTORY: Fall, trauma. TECHNIQUE: 2D digital imaging was performed. COMPARISON: CR CERVICAL SP. LIMITED (TRAUMA) from 08/10/2017 FINDINGS: Neck immobilizer is in place. No fracture is visible. Lower cervical vertebral bodies are are obscu red by the patient's shoulders on the lateral view. There are degenerative changes of the facet join ts throughout. There is some reversal of the normal cervical lordosis. Degenerative disc changes ar e present, greatest at C5-6 and C6-7. The airway is unremarkable. IMPRESSION: Degenerative changes. No acute abnormality. DATA REPOSITORY: RADIATION DOSE DELIVERED:
--- NOTE | 2020-08-19 17:07 | DI.VRAD_ITS ---
PROCEDURE INFORMATION: Exam: XR Chest Exam date and time: 08/19/2020 4:32 PM Age: 69 years old Clinical indication: Injury or trauma; Fall; Blunt trauma (contusions or hematomas); Injury date: 08/19/20 TECHNIQUE: Imaging protocol: XR of the chest Views: 2 views. Total images: 2 COMPARISON: CR ABD FLAT UPRIGHT PA CHEST 02/15/2017 12:53 PM FINDINGS: Lungs: Lungs are clear. Pulmonary jeff: Unremarkable contours. Pleural spaces: There is no pleural fluid. No pneumothorax. Heart/Mediastinum: Mediastinal contours are notable for mildly tortuous aorta. Bones/joints: There is mild thoracic spondylosis. No significant vertebral body compression deformity. Intraperitoneal space: Visualized upper abdomen is unremarkable. IMPRESSION: No acute finding. Dictated and Authenticated by: Gigi Lawson MD. Ordering:JAMES Carpenter MD
--- NOTE | 2020-08-19 17:12 | DI.VRAD_ITS ---
PROCEDURE INFORMATION: Exam: XR Cervical Spine Exam date and time: 08/19/2020 4:32 PM Age: 69 years old Clinical indication: Injury or trauma; Blunt trauma; Injury date: 08/19/20; Injury details: Fall, orbital FX TECHNIQUE: Imaging protocol: XR of the cervical spine. Views: 2 or 3 views. Total images: 3 COMPARISON: CR CERVICAL SP. LIMITED (TRAUMA) 08/10/2017 3:49 PM FINDINGS: Bones/joints: There is mild reversal of the normal cervical lordosis. C7 is suboptimally visualized. There is no definite fracture of the remaining vertebral bodies. There is significant degenerative disc disease and spondylosis at C5-C6 and C6-C7. There is a stable 3 mm anterolisthesis of C4 on C5. There is spondylosis between the lateral masses at the C2-C3, C3-C4 and C4-C5 levels. Soft tissues: There is no prevertebral soft tissue swelling. IMPRESSION: 1. No definite plain film evidence of a fracture although C7 is suboptimally visualized. 2. Degenerative disc disease similar to the prior study. Dictated and Authenticated by: Gigi Lawson MD. Ordering:JAMES Carpenter MD
[2020-08-19] MEDS: Nicotine 21 MG/24 HR PATCH TD (17:32)
== END 2020-08-19 19:38 | disposition short-term general hospital (02) ==
PROVIDERS: Physician Assistant; Emergency Provider Registered Nurse Emergency; PCP Nurse Practitioner Family
DX: S02.31XA Fracture of orbital floor, right side, initial encounter for closed fracture (principal); S06.9X9A Unspecified intracranial injury with loss of consciousness of unspecified duration, initial encounter; W06.XXXA Fall from bed, initial encounter; D50.8 Other iron deficiency anemias
CPT/HCPCS: 36415; 36430; 80053; 83690; 86850; 86900; 86901; 86920; 93005; 96365; 96366; 99213; 99285; 70450; 70486; 71046; 72040; 83735; 84484; 85025; 85610; 93010; J1756; P9016

== ENCOUNTER 2020-08-23 16:33 | Outpatient (REF) | payer MEDICARE, MEDICAID, SELFPAY ==
[2020-08-23 20:57] LABS: ALT 37 U/L (14-59); AST 32 U/L (15-37); Albumin 3.5 g/dL (3.4-5.0); Alkaline Phosphatase 102 U/L (46-116); Anion Gap 9.5 mmol/L (3-11); BUN 12 mg/dL (7-18); Bilirubin, Total 0.3 mg/dL (0.2-1.0); CO2 28.5 mmol/L (21.0-32.0); CREATININE 0.8 mg/dL (0.55-1.02); Calcium 8.9 mg/dL (8.5-10.1); Chloride 102 mmol/L (98-107); Glucose 96 mg/dL (74-106); Potassium 4.5 mmol/L (3.5-5.1); Sodium 140 mmol/L (136-145); Total Protein 7.2 g/dL (6.4-8.2)
[2020-08-23 21:01] LABS: Abs Immature Grans 0.31 10^3/uL (0.0-0.06); Absolute Basophil Count 0.16 10^3/uL (0.0-0.2); Absolute Monocyte Count 1.14 10^3/uL (0.1-0.8); Absolute Neutrophil Count 11.78 10^3/uL (1.2-6.7); Basophils % 0.9; Eosinophils % 3.4; HCT 33.9 % (36.0-46.0); HGB 10.2 g/dL (11.2-15.7); Immature Grans % 1.8; Lymphocytes % 20.3; MCH 23.7 pg (27.0-33.0); MCHC 30.1 % (32.0-36.0); MCV 78.7 fL (80-95); MPV 9.6 fL (8.0-11.0); Monocytes % 6.5; Neutrophils % 67.1; Nucleated RBC 0 %; Platelet Count 380 10^3/uL (130-400); RBC 4.31 10^6/uL (3.93-5.22); RDW 20.1 % (11.7-14.6); WBC 17.55 10^3/uL (4.4-10.8)
[2020-08-23 21:03] LABS: Absolute Lymphocyte Count 3.56 10^3/uL (1.2-3.4)
[2020-08-23 22:17] LABS: Iron 60 ug/dL (50-170); Total Iron Binding Capacity 555 ug/dL (250-450); Transferrin Sat 11 % (15-50)
== END 2020-08-23 16:34 | disposition home or self-care (01) ==
LOC: NCHCN 16:33
PROVIDERS: PCP Nurse Practitioner Family; Visit Provider Nurse Practitioner Family
DX: D50.9 Iron deficiency anemia, unspecified (principal); I10 Essential (primary) hypertension; H57.11 Ocular pain, right eye
CPT/HCPCS: 80053; 83540; 83550; 85025

== ENCOUNTER 2020-09-24 14:36 | Outpatient (REF) | payer MEDICARE, MEDICAID, SELFPAY ==
[2020-09-24 20:47] LABS: Abs Immature Grans 0.05 10^3/uL (0.0-0.06); Absolute Basophil Count 0.09 10^3/uL (0.0-0.2); Absolute Eosinophil Count 0.17 10^3/uL (0.0-0.7); Absolute Lymphocyte Count 2.75 10^3/uL (1.2-3.4); Absolute Monocyte Count 0.72 10^3/uL (0.1-0.8); Absolute Neutrophil Count 9.26 10^3/uL (1.2-6.7); Basophils % 0.7; Eosinophils % 1.3; HCT 38.7 % (36.0-46.0); HGB 12.2 g/dL (11.2-15.7); Immature Grans % 0.4; Lymphocytes % 21.1; MCH 25.7 pg (27.0-33.0); MCHC 31.5 % (32.0-36.0); MCV 81.6 fL (80-95); MPV 9.9 fL (8.0-11.0); Monocytes % 5.5; Nucleated RBC 0 %; Platelet Count 329 10^3/uL (130-400); RBC 4.74 10^6/uL (3.93-5.22); RDW 23.8 % (11.7-14.6); RDW-SD 68.2 fL; WBC 13.04 10^3/uL (4.4-10.8)
[2020-09-24 21:19] LABS: Ferritin 26 ng/mL (8-252); TSH (W/Ref FT4) 8.31 uIU/mL (0.36-3.74)
[2020-09-24 21:32] LABS: Anisocytosis 1+; Diff Comment Agrees w/ Instrument; Microcytosis 1+
[2020-09-24 21:36] LABS: FREE T4 1.01 ng/dL (0.76-1.46)
[2020-09-24 21:45] LABS: Iron 60 ug/dL (50-170); Total Iron Binding Capacity 455 ug/dL (250-450); Transferrin Sat 13 % (15-50)
== END 2020-09-24 14:37 | disposition home or self-care (01) ==
LOC: NCHCN 14:36
PROVIDERS: PCP Nurse Practitioner Family; Visit Provider Nurse Practitioner Family
DX: D64.9 Anemia, unspecified (principal); E03.9 Hypothyroidism, unspecified; I10 Essential (primary) hypertension; D72.829 Elevated white blood cell count, unspecified
CPT/HCPCS: 82728; 83540; 83550; 84439; 84443; 85025

== ENCOUNTER 2020-10-08 04:44 | Outpatient (CLI) | payer MEDICARE, MEDICAID, SELFPAY ==
--- NOTE | 2020-10-08 | DI.CT_ITS ---
Exam(s) CT HEAD WO/W EXAM: CT HEAD WO/W CLINICAL HISTORY: HEADACHE, R51.9,RT EYE PAIN, H57.11. TECHNIQUE: Imaging Protocol: Axial computed tomography images with coronal and sagittal reformatted images were created and reviewed. CONTRAST MATERIAL: Intravenous: Omnipaque 350 Contrast volume:100 mL COMPARISON: CT CT HEAD FACIAL WO from 08/19/2020 FINDINGS: Ventricles and Extra axial spaces: Normal in size and morphology for the patient's age. Hemorrhage: None. Cerebral parenchyma: No acute territorial infarct. There are areas of decreased attenuation in the w neptali matter most consistent with chronic microvascular ischemic disease. Enhancement: No suspicious enhancement. [place] of Krishnamurthy: Unremarkable. Midline shift: None. Brainstem/Cerebellum: Normal. Calvarium: There has been improved alignment of the patient's known right orbital floor fracture. Visualized Paranasal sinuses/Mastoids: Clear. IMPRESSION: 1. Improved alignment of the patient's known right orbital floor fracture. 2. No intracranial masses or enhancing lesions. 3. Findings of chronic microvascular ischemic disease. RADIATION DOSE DELIVERED: 1,523.46mGy.cm Total DLP 1,523.46mGy.cm Total DLP DATA REPOSITORY: All CT scans at this facility are submitted to the National Radiology Data Registry (NRDR) Dose Index Registry (DIR) with the [employer] (ACR). RADIATION OPTIMIZATION: All CT scans at this facility use at least one of these dose optimization te chniques: automated exposure control; mA and/or kV adjustment per patient size (includes targeted exa ms where dose is matched to clinical indication); or iterative reconstruction.
[2020-10-08 12:21] LABS: Abs Immature Grans 0.03 10^3/uL (0.0-0.06); Absolute Basophil Count 0.12 10^3/uL (0.0-0.2); Absolute Eosinophil Count 0.27 10^3/uL (0.0-0.7); Absolute Lymphocyte Count 3.07 10^3/uL (1.2-3.4); Absolute Neutrophil Count 7.96 10^3/uL (1.2-6.7); Eosinophils % 2.2; HCT 37.1 % (36.0-46.0); HGB 11.7 g/dL (11.2-15.7); Immature Grans % 0.2; Lymphocytes % 25.3; MCH 26.2 pg (27.0-33.0); MCHC 31.5 % (32.0-36.0); Monocytes % 5.8; Neutrophils % 65.5; Nucleated RBC 0 %; RBC 4.47 10^6/uL (3.93-5.22); RDW 23.2 % (11.7-14.6); RDW-SD 67.9 fL; WBC 12.15 10^3/uL (4.4-10.8)
[2020-10-08 12:37] LABS: PTT Activated 24.5 sec (21.0-27.5); Prothrombin Time 9.9 sec (9.3-11.0)
[2020-10-08 12:47] LABS: CREATININE 0.9 mg/dL (0.55-1.02); Magnesium 1.5 mg/dL (1.8-2.4); TSH 15.37 uIU/mL (0.36-3.74)
[2020-10-08 12:57] LABS: Anisocytosis 3+; Diff Comment Diff Reviewed; Platelet Count 451 10^3/uL (130-400)
[2020-10-08 12:58] LABS: Poikilocytes 1+
[2020-10-08] MEDS: Omnipaque 350 MG/ML 100 ML BTL IJ (13:20)
[2020-10-08] MEDS: Normal Saline - Diluent 50 ML VIAL IV (13:24)
[2020-10-08 13:38] LABS: Vitamin B12 764 pg/mL (193-986)
[2020-10-08 13:48] LABS: Iron 141 ug/dL (50-170); Total Iron Binding Capacity 437 ug/dL (250-450); Transferrin Sat 32 % (15-50)
[2020-10-10 16:43] LABS: T3,Free 2.7 pg/mL (2.8-5.3)
[2020-10-11 10:59] LABS: Hepatitis A Antibody IgM Negative (Negative); Hepatitis B Core Antibody Positive (Negative); Hepatitis B surface Ag Negative (Negative); Hepatitis C Ab w Rflx HCV PCR Reactive (Negative)
[2020-10-12 11:26] LABS: HBc IgM Ab, S Negative (Negative)
[2020-10-13 13:28] LABS: HCV RNA Qualitative Undetected (Undetected)
== END 2020-10-08 05:04 ==
PROVIDERS: PCP Nurse Practitioner Family; Visit Provider Nurse Practitioner Family
DX: R51.9 Headache, unspecified (principal); H57.11 Ocular pain, right eye; S02.31XD Fracture of orbital floor, right side, subsequent encounter for fracture with routine healing; E11.9 Type 2 diabetes mellitus without complications; R39.9 Unspecified symptoms and signs involving the genitourinary system; R31.9 Hematuria, unspecified; R53.83 Other fatigue; F17.210 Nicotine dependence, cigarettes, uncomplicated; E03.9 Hypothyroidism, unspecified; R42 Dizziness and giddiness; E11.65 Type 2 diabetes mellitus with hyperglycemia; R35.0 Frequency of micturition; Z79.899 Other long term (current) drug therapy
CPT/HCPCS: 86704; 86709; 86803; 87340; 87522; 70470; 82565; 82607; 83036; 83540; 83550; 83735; 84439; 84443; 84481; 85025; 85610; 85730; 86705; J3490

== ENCOUNTER → 2020-11-04 10:46 | Outpatient (BNVA) | payer MEDICARE, MEDICAID, SELFPAY | PROVIDERS: PCP Nurse Practitioner Family; Visit Provider Nurse Practitioner Gerontology | DX: N39.46 Mixed incontinence (principal); N39.0 Urinary tract infection, site not specified; J44.9 Chronic obstructive pulmonary disease, unspecified; E11.9 Type 2 diabetes mellitus without complications | CPT/HCPCS: 81003; 99215 ==

== ENCOUNTER 2020-11-04 15:09 | Outpatient (REF) | payer MEDICARE, MEDICAID, SELFPAY | END 2020-11-04 15:10 | disposition home or self-care (01) | LOC: LBN 15:09 | PROVIDERS: PCP Nurse Practitioner Family; Visit Provider Nurse Practitioner Gerontology | DX: N39.0 Urinary tract infection, site not specified (principal) | CPT/HCPCS: 87077; 87086; 87186 ==

== ENCOUNTER → 2020-12-08 10:27 | Outpatient (BNVA) | payer MEDICARE, MEDICAID, SELFPAY | PROVIDERS: PCP Nurse Practitioner Family; Referring Provider Nurse Practitioner Family; Visit Provider Nurse Practitioner Adult Health | DX: G43.009 Migraine without aura, not intractable, without status migrainosus (principal); G43.109 Migraine with aura, not intractable, without status migrainosus; I10 Essential (primary) hypertension; E11.42 Type 2 diabetes mellitus with diabetic polyneuropathy; J44.9 Chronic obstructive pulmonary disease, unspecified; S02.31XA Fracture of orbital floor, right side, initial encounter for closed fracture; W06.XXXA Fall from bed, initial encounter | CPT/HCPCS: 99204; 99215; G2212 ==

== ENCOUNTER → 2021-02-03 10:26 | Outpatient (BNVA) | payer MEDICARE, MEDICAID, SELFPAY | PROVIDERS: PCP Nurse Practitioner Family; Referring Provider Nurse Practitioner Family; Visit Provider Nurse Practitioner Gerontology | DX: N39.46 Mixed incontinence (principal); E11.9 Type 2 diabetes mellitus without complications | CPT/HCPCS: 81003; 99214 ==

== ENCOUNTER 2021-04-19 15:21 | Outpatient (REF) | payer MEDICARE, MEDICAID, SELFPAY | END 2021-04-19 15:22 | disposition home or self-care (01) | LOC: NCHCN 15:21 | PROVIDERS: PCP Nurse Practitioner Family; Visit Provider Nurse Practitioner Family | DX: R30.0 Dysuria (principal) | CPT/HCPCS: 87077; 87086; 87186 ==

== ENCOUNTER 2021-07-12 15:12 | Outpatient (REF) | payer MEDICARE, MEDICAID, SELFPAY ==
[2021-07-12 22:14] LABS: Hemoglobin A1C 8.2 % (<5.7)
[2021-07-12 22:40] LABS: ALT 25 U/L (14-59); AST 19 U/L (15-37); Albumin 4.1 g/dL (3.4-5.0); Alkaline Phosphatase 90 U/L (46-116); Anion Gap 14.9 mmol/L (3-11); BUN 23 mg/dL (7-18); Bilirubin, Total 0.4 mg/dL (0.2-1.0); CO2 24.1 mmol/L (21.0-32.0); Calcium 9.6 mg/dL (8.5-10.1); Chloride 100 mmol/L (98-107); Estimated GFR 54.97 (mL/min/1.73m2); Glucose 178 mg/dL (74-106); Magnesium 1.7 mg/dL (1.8-2.4); Potassium 4.4 mmol/L (3.5-5.1); Sodium 139 mmol/L (136-145); TSH (W/Ref FT4) 74.24 uIU/mL (0.36-3.74); Total Protein 7.9 g/dL (6.4-8.2); Vitamin B12 480 pg/mL (193-986)
[2021-07-12 23:26] LABS: FREE T4 0.39 ng/dL (0.76-1.46)
[2021-07-14 00:16] LABS: Vitamin D 25 Total 27.9 ng/mL (30-100)
[2021-07-16 04:52] LABS: Fentanyl Interpretation Positive.; Fentanyl by LC-MS/MS >200 ng/mL; Norfentanyl by LC-MS/MS 73.7 ng/mL
== END 2021-07-12 15:13 | disposition home or self-care (01) ==
LOC: NCHCN 15:12
PROVIDERS: PCP Nurse Practitioner Family; Visit Provider Nurse Practitioner Family
DX: G89.29 Other chronic pain (principal); R30.0 Dysuria; E11.65 Type 2 diabetes mellitus with hyperglycemia; D64.9 Anemia, unspecified; I10 Essential (primary) hypertension; J44.9 Chronic obstructive pulmonary disease, unspecified; D72.829 Elevated white blood cell count, unspecified; Z51.81 Encounter for therapeutic drug level monitoring; Z79.4 Long term (current) use of insulin
CPT/HCPCS: 80053; 82306; 80354; 82607; 83036; 83735; 84439; 84443; 87086

== ENCOUNTER 2021-08-26 01:39 | Outpatient (CLI) | payer MEDICARE, MEDICAID, SELFPAY ==
--- NOTE | 2021-08-26 | DI.CTLCSR_ITS ---
Exam(s) CT CHEST LUNG CANCER SCREEN EXAM: CT CHEST LUNG CANCER SCREEN CLINICAL HISTORY: CIGARETTE SMOKER, F17.210, LUNG CA SCREENING TECHNIQUE: Imaging Protocol: Axial computed tomography images with coronal and sagittal reformatted images were created and reviewed COMPARISON: CT HEAD WITHOUT CONTRAST from 09/01/2013 CT ABD PELVIS WITH CONTRAST from 02/14/2017 FINDINGS: Tracheobronchial tree: Patent where visualized. Pulmonary parenchyma: No consolidation or dominant measurable mass. There is scarring or atelectasis in the right middle lobe and left lingula. Lung Nodules: None. Mediastinum and Annamaria: No dominant adenopathy or fluid collection. The esophagus is unremarkable.Note is made of an aberrant right subclavian artery. This is a normal variant. Thyroid gland: Not visualized on this examination. Lymph nodes: Unremarkable. Pleura: No effusion or pneumothorax. Heart: The heart is not dilated. Coronary artery calcifications are present. No pericardial effusion . Aorta: Thoracic aorta non-dilated.Atherosclerosis. Upper abdomen: Status post cholecystectomy. Soft Tissues: Unremarkable. Bones: Within normal limits. IMPRESSION: No pulmonary nodules. Lung RADS Cat 1 - Negative: No nodules and definitely benign nodules Lung-RADS 1.0 CATEGORIES: Category 0 - Prior chest CT exam(s) being located for comparison. Category 1 - Annual screening in 12 months. No nodules or definitely benign nodules. Category 2 - Annual screening in 12 months. Benign appearance. Nodules with low likelihood of becomin g active cancer. Category 3 - 6-month follow-up. Probably benign. Short-term follow-up suggested. Nodules with low lik elihood of becoming active cancer. Category 4A - 3-month follow-up and CT/PET if >8 mm in size. Suspicious finding. Findings which requi re additional testing. Category 4B - Findings which require additional testing and tissue sampling. Suspicious finding. Category 4X - Category 3 or 4 nodules with additional features or imaging findings that increases the suspicion of malignancy. Modifier S- Potentially clinically significant finding. (Non lung cancer) RADIATION DOSE DELIVERED: 69.75mGy.cm Total DLP !Error CTDIvol 69.75mGy.cm Total DLP 1.84mGy CTDIvol DATA REPOSITORY: All CT scans at this facility are submitted to the National Radiology Data Registry (NRDR) Dose Index Registry (DIR) with the [employer] (ACR). RADIATION OPTIMIZATION: All CT scans at this facility use at least one of these dose optimization te chniques: automated exposure control; mA and/or kV adjustment per patient size (includes targeted exa ms where dose is matched to clinical indication); or iterative reconstruction.
--- NOTE | 2021-08-26 12:45 | DI.US_ITS ---
Exam(s) US ABDOMEN EXAM: US ABDOMEN CLINICAL HISTORY: CIRRHOSIS, K74.60 TECHNIQUE: Ultrasound abdomen performed using standard protocol. COMPARISON: US US ABDOMEN from 07/27/2020 FINDINGS: ABDOMINAL AORTA AND IVC: Visualized portions normal caliber. PANCREAS: Normal where visualized. LIVER: There is diffuse increased echogenicity of the liver. The liver measures 17.1 cm long. Hepat opedal flow in the Portal Vein. GALLBLADDER:Status post cholecystectomy. BILIARY SYSTEM: Common bile duct measures 7.4 mm. No intrahepatic biliary ductal dilation. KIDNEYS: Kidneys are symmetric in size. No evidence of renal calculi. No evidence of hydronephrosis. No renal mass or cyst identified. SPLEEN: Not enlarged. ASCITES: None seen. IMPRESSION: No evidence of a hepatic mass. DATA REPOSITORY:
== END 2021-08-26 01:59 ==
PROVIDERS: PCP Nurse Practitioner Family; Visit Provider Nurse Practitioner Family
DX: F17.210 Nicotine dependence, cigarettes, uncomplicated (principal); K74.60 Unspecified cirrhosis of liver; Z12.2 Encounter for screening for malignant neoplasm of respiratory organs
CPT/HCPCS: 71271; 76700

== ENCOUNTER 2021-09-13 14:07 | Outpatient (REF) | payer MEDICARE, MEDICAID, SELFPAY ==
[2021-09-13 16:48] LABS: HGB 11.9 g/dL (11.2-15.7); MCH 29.5 pg (27.0-33.0); MCHC 32.2 % (32.0-36.0); MCV 91.6 fL (80-95); MPV 11.1 fL (8.0-11.0); Platelet Count 378 10^3/uL (130-400); RBC 4.04 10^6/uL (3.93-5.22); RDW 13.8 % (11.7-14.6); RDW-SD 46.7 fL; WBC 14.24 10^3/uL (4.4-10.8)
[2021-09-13 17:08] LABS: Iron 52 ug/dL (50-170); Total Iron Binding Capacity 462 ug/dL (250-450); Transferrin Sat 11 % (15-50)
[2021-09-13 17:23] LABS: Ferritin 13 ng/mL (8-252); TSH (W/Ref FT4) 4.96 uIU/mL (0.36-3.74)
[2021-09-13 17:36] LABS: Abs Immature Grans 0.06 10^3/uL (0.0-0.06); Absolute Basophil Count 0.12 10^3/uL (0.0-0.2); Absolute Eosinophil Count 0.26 10^3/uL (0.0-0.7); Absolute Lymphocyte Count 1.99 10^3/uL (1.2-3.4); Absolute Monocyte Count 0.74 10^3/uL (0.1-0.8); Absolute Neutrophil Count 10.94 10^3/uL (1.2-6.7); Basophils % 0.9; Eosinophils % 1.8; Immature Grans % 0.4; Lymphocytes % 14.1; Monocytes % 5.2; Neutrophils % 77.6
[2021-09-13 17:44] LABS: FREE T4 1.41 ng/dL (0.76-1.46)
[2021-09-15 05:43] LABS: Vitamin D 25 Total 25.5 ng/mL (30-100)
== END 2021-09-13 14:08 | disposition home or self-care (01) ==
LOC: NCHCN 14:07
PROVIDERS: PCP Nurse Practitioner Family; Visit Provider Nurse Practitioner Family
DX: D64.9 Anemia, unspecified (principal); D72.829 Elevated white blood cell count, unspecified; M85.80 Other specified disorders of bone density and structure, unspecified site; E03.9 Hypothyroidism, unspecified; E11.65 Type 2 diabetes mellitus with hyperglycemia; K74.60 Unspecified cirrhosis of liver
CPT/HCPCS: 82306; 85027; 82728; 83540; 83550; 84439; 84443; 85007

== ENCOUNTER 2022-02-08 13:26 | Outpatient (REF) | payer MEDICARE, MEDICAID, SELFPAY ==
[2022-02-08 21:21] LABS: Abs Immature Grans 0.08 10^3/uL (0.0-0.06); Absolute Basophil Count 0.14 10^3/uL (0.0-0.2); Absolute Eosinophil Count 0.48 10^3/uL (0.0-0.7); Absolute Lymphocyte Count 2.62 10^3/uL (1.2-3.4); Absolute Neutrophil Count 10.05 10^3/uL (1.2-6.7); Eosinophils % 3.4; HCT 34.7 % (36.0-46.0); Immature Grans % 0.6; Lymphocytes % 18.5; MCHC 31.7 % (32.0-36.0); MCV 82 fL (80-95); MPV 10.7 fL (8.0-11.0); Monocytes % 5.6; Neutrophils % 70.9; Platelet Count 391 10^3/uL (130-400); RBC 4.23 10^6/uL (3.93-5.22); RDW 15.4 % (11.7-14.6); WBC 14.17 10^3/uL (4.4-10.8)
[2022-02-08 21:47] LABS: ALT 31 U/L (14-59); AST 34 U/L (15-37); Albumin 3.3 g/dL (3.4-5.0); Anion Gap 12.6 mmol/L (3-11); BUN 12 mg/dL (7-18); Bilirubin, Total 0.2 mg/dL (0.2-1.0); CO2 25.4 mmol/L (21.0-32.0); CREATININE 0.9 mg/dL (0.55-1.02); Calcium 8.6 mg/dL (8.5-10.1); Chloride 97 mmol/L (98-107); Estimated GFR 68.77 (mL/min/1.73m2); Ferritin 10 ng/mL (8-252); Glucose 240 mg/dL (74-106); Sodium 135 mmol/L (136-145); TSH (W/Ref FT4) 9.31 uIU/mL (0.36-3.74); Total Protein 7.3 g/dL (6.4-8.2)
[2022-02-08 21:49] LABS: Absolute Monocyte Count 0.79 10^3/uL (0.1-0.8)
[2022-02-08 21:55] LABS: Iron 27 ug/dL (50-170); Total Iron Binding Capacity 472 ug/dL (250-450); Transferrin Sat 6 % (15-50)
[2022-02-08 22:27] LABS: Magnesium 1.3 mg/dL (1.8-2.4); Vitamin B12 400 pg/mL (193-986)
[2022-02-08 22:43] LABS: Alkaline Phosphatase 123 U/L (46-116)
[2022-02-09 05:44] LABS: Vitamin D 25 Total 26.4 ng/mL (30-100)
== END 2022-02-08 13:27 | disposition home or self-care (01) ==
LOC: NCHCN 13:26
PROVIDERS: PCP Nurse Practitioner Family; Visit Provider Nurse Practitioner Family
DX: D64.9 Anemia, unspecified (principal); R53.83 Other fatigue; R51.9 Headache, unspecified; F17.210 Nicotine dependence, cigarettes, uncomplicated; D72.829 Elevated white blood cell count, unspecified; E83.42 Hypomagnesemia; E11.65 Type 2 diabetes mellitus with hyperglycemia; K74.60 Unspecified cirrhosis of liver; Z79.899 Other long term (current) drug therapy
CPT/HCPCS: 80053; 82306; 82607; 82728; 83540; 83550; 83735; 84439; 84443; 85025

== ENCOUNTER 2022-03-20 14:56 | Outpatient (CLI) | payer MEDICARE, MEDICAID, SELFPAY ==
--- NOTE | 2022-03-20 13:45 | DI.RAD_ITS ---
Exam(s) XR HIP RT COMPLETE AP PELVIS EXAM: XR HIP RT COMPLETE AP PELVIS CLINICAL HISTORY: right hip pain. TECHNIQUE: 2D digital imaging was performed of the right hip. Three images were obtained. AP pelvis and lateral right hip views were obtained. COMPARISON: No exams were available for comparison FINDINGS: BONES: No acute fracture is present. No bony destructive lesion is seen. JOINTS: No dislocation present. There are degenerative changes seen in the right hip with joint space narrowing and marginal osteophytes. SOFT TISSUE: Atherosclerosis is present. IMPRESSION: [id number] degenerative changes of the right hip. DATA REPOSITORY: RADIATION DOSE DELIVERED:
== END 2022-03-20 14:57 | disposition home or self-care (01) ==
LOC: DIORS 14:57
PROVIDERS: PCP Nurse Practitioner Family; Referring Provider Nurse Practitioner Family; Visit Provider Student in an Organized Health Care Education/Training Program
DX: M70.61 Trochanteric bursitis, right hip; M16.11 Unilateral primary osteoarthritis, right hip; E11.42 Type 2 diabetes mellitus with diabetic polyneuropathy
CPT/HCPCS: 20610; 99213; 73502; J1040

== ENCOUNTER 2022-04-10 08:58 | Observation (INO) | payer MEDICARE, MEDICAID, SELFPAY ==
[2022-04-10] VITALS (31 sets, daily range): BP systolic 117–220; BP diastolic 56–128; PULSE 64–91; RESP 9–30; TEMP 37.2; O2SAT 87–99
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
--- OUTSIDE RECORDS SUMMARY | 2022-04-10 09:16 | XMS_ITS | Encounter Summary ---
:1950 Author Care Team Providers Name Role Phone Dr. Joellen Molina Primary Care Provider [phone] Dr. Joellen Molina Referring Provider [phone] Reason for Visit dm 2, uncontrolled, diabetic neuropathy Assessment and Plan 1. Type II diabetes mellitus uncontroll ed A1c 8.3% Suboptimal control. Increased risk of additional complicatoins Sensor data show: Good BG at bedime and midnight rising BG overnight Higher BG Noon Lower BG pre supper. This pattern suggest A) Need for More Long duration insulin (levemir) at bedtime (May also need more ast Breakast) ? fructosamine, serum ? CMP, serum or plasma ? microalbumin/creatinine, ratio panel, urine ? HbA1c (hemoglobin A1c), blood 2. Polyneuropathy due to type 2 diabete s mellitus mderat 3. Retinopathy due to type 2 diabetes rajesh duffy Need details from Eye doctor 4. Non-alcoholic fatty liver Need details from GI ? nonalcoholic steatohepatitis (estevez): care instructions 5. Obesity Overweight. ? when you are overweight: care instruc tions 6. Postoperative hypothyroidism SP op 2020 on Levothyroxine ( no recent TSH provided.) ? hypothyroidism: care instructions 7. Papillary thyroid carcinoma SP op 2020 Discussion Note Need to adust insulin Plan of Care Patient Goals Hemoglobin A1c [...] s from neck to toes. ORAL MEDICATIONS: ----[id number] mg once daily GLP-1 AGONIST Injections (sounds [...] RANGE 50 to 100 Reminders Provider Appointments Endocrinology Follow up 30 05/09/2022 Mario Forrest MD-FACE 11:30AM Lab Fructosamine, Serum 03/20/2022 Amparo conteh [facility] l Lab ? CMP, Serum or Plasma 03/20/2022 Jordana irizarry [facility] l Lab ? Microalbumin/creatinine, 03/20/2022 [facility] Ratio Panel, Urine [facility] ? HbA1C (Hemoglobin a1C), 03/20/2022 Jailene castrejon [place] [facility] l Lab Referral None recorded. ? ? Procedures None recorded. ? ? Surgeries None recorded. ? ? Imaging None recorded. ? ? Medications Name Start Date ? ? Adult Briefs - Large ? amitriptyline 100 mg tablet ? Take 1 tablet every day by oral route in the evening. Antacid (calcium carbonate) 200 mg calcium (500 mg) ch ewable tablet ? Take 1 tablet every day by oral route as needed. Ativan 1 mg tablet ? Take 1 tablet twice a day by oral route as needed. BD Insulin Syringe Ultra-Fine ? Bydureon 2 mg/0.65 mL subcutaneous pen injector ? Inject 2 mg every week by subcutaneous route. calcium citrate 200 mg (950 mg) tablet ? Take 1 tablet 3 times a day by oral route. Colace 100 mg capsule ? Take 2 capsules every day by oral route as needed. enalapril maleate 10 mg tablet ? Take 1 tablet every day by oral route. enalapril maleate 20 mg tablet ? Take 1 tablet every day by oral route. famotidine 20 mg tablet ? Take 1 tablet every day by oral route. FreeStyle [place] Lite kit ? FreeStyle Kaci 2 Biola ? FreeStyle Kaci 2 Sensor kit ? FreeStyle Test strips ? Take 1 strip 4 times a day by miscell. route. Glucose Bits 1 gram chewable tablet ? Take 1 tablet every day by oral route as needed. Levemir U-100 Insulin 100 unit/mL subcutaneous solutio n ? Inject 25 units 3 times a day by subcutaneous route. levothyroxine 150 mcg tablet ? Take 1 tablet every day by oral route. lidocaine 5 % topical cream ? Apply q small amount to skin TID just to the bottom o f your feet. Magtab 84 mg tablet,extended release ? Take 1 tablet twice a day by oral route. metformin 1,000 mg tablet ? Take 1 tablet twice a day by oral route. Nicoderm CQ 14 mg/24 hr daily transdermal patch ? Apply 1 patch every day by transdermal route. Nicoderm CQ 21 mg/24 hr daily transdermal patch ? Apply 1 patch every day by transdermal route. nicotine 7 mg/24 hr daily transdermal patch ? Apply 1 patch every day by transdermal route. Novolog Flexpen U-100 Insulin aspart 100 unit/mL (3 mL ) subcutaneous ? Inject 25 units 3 times a day by sub-q route. omeprazole 40 mg capsule,delayed release ? Take 1 capsule every day by oral route. OneTouch FinePoint Lancets 25 gauge ? Take 1 each 4 times a day by miscell. route. OneTouch Verio Meter ? OneTouch Verio test strips ? pen needle, diabetic 31 gauge x 1/4 ? Take 1 needle 4 times a day by miscell. route. pramipexole 0.5 mg tablet ? Take 1 tablet every day by oral route. pregabalin 150 mg capsule ? Take 1 capsule twice a day by oral route. Rexulti 1 mg tablet ? Take 1 tablet every day by oral route. simvastatin 40 mg tablet ? Take 1 tablet every day by oral route at bedtime. Spiriva with HandiHaler 18 mcg and inhalation capsules ? Inhale 1 capsule every day by inhalation route. Ventolin HFA 90 mcg/actuation aerosol inhaler ? Inhale 2 puffs every 6 hours by inhalation route as n eeded. Vitamin D3 10 mcg (400 unit) capsule ? Take 1 capsule 3 times a day by oral route. Medications Administered None recorded. Vitals Height Weight BMI Blood Pressure 5 ft 3.5 in 171.5 lbs 29.9 kg/m2 136/68 mm[Hg] Results Lab Results None recorded. Allergies Code Code System Name Reaction Severity Onset RxNorm Aleve Other Mild ? 2669 RxNorm Codeine Other Mild ? 20340907 RxNorm Compazine Other Mild ? 7983 RxNorm Penicillin v Other Severe ? Problems Name Status Onset Date Source ? [...] Energy X-ray Absorptiometry Informa tion not available Vaccine List Vaccine Type COVID-19, mRNA, LNP-S, PF, 100 mcg/0.5 m L dose (Moderna) 08/05/2020 09/19/2020 Social History Tobacco Smoking Status Heavy Tobacco Smoker (1/2 pack per day) Have you travelled outside of [place] in N the past 14 days? Have you received the covid vaccine this N year? (If so, document vaccination in Vaccine Module in [place]) Have you experienced any of the following N symptoms in the past 48 hours? Fever/Chills, Cough, Shortness of breath or difficulty breathing, fatigue, muscle or body aches, headache, new loss of taste or smell, sore throat, congestion or runny nose, nausea or vomiting and/or diarrhea Have you had any vaccines in the last month N or do you have any vaccines scheduled? Are you able to care for yourself? Y Has tobacco cessation counseling been N provided? Are you currently waiting on results of a N COVID-19 test? Within the past 14 days, have you been in N close physical contact (6 feet or closer for a cumulative total of 15 minutes) with anyone that is known to have laboratory-confirmed COVID-19? OR Anyone who has any symptoms consistent with COVID-19? Are you isolating or quarantining because N you may have been exposed to a person with COVID-19 or are worried that you may be sick with COVID-19? Do you or have you ever used any other forms N of tobacco or nicotine? Functional Status Unknown. Past Encounters 01/30/2022 Type II Diabetes Mellitus Uncontrolled; Polyneuropathy Due to Type 2 Diabetes Mellitus; Retinopathy Due to Type 2 Diabetes Mellitus; Non-alcoholic Fatty Liver; Obesity; Postoperative Hypothyroidism; Papillary Thyroid Carcinoma Aubrey Forrest MD-FACE: [address] [place] [address], Ph. History of Present Illness Note: <div>Pt reports a sugar reading of 179 this am.</div><div>
</div>&l t;div>Thi 71 s year old female comes for initial Endocrinology and Metabolism visit for Evaluation and Management of uncontrolled Diabetes Mellitus Type 2.</div><div>
</div><div>Tessy recalls diagnosis of diabetes at age [age] years old in year 1999.</div><div> She never had and does not recall any prior diagnosis of PreDiabetes.</div><div>
</div><div>Initially she was identified during routine testing during check up. Told that her Sugar up over 500. (She had just had coke). She recalls that she was having trouble with eye sight. OTherwise she would get really fatigued. She does not recall any symptomatic polyuria, polydipsia, </div><div> </div> <div>EDUCATION : </div><div>She has met with a Filling Hand to review appropriate eating habits.</div><div>Also she had did not have face to face education with a Certified After School Tutor (CDE) about nature of diabetes, symptoms, complications, treatment.</div><di v> </d iv><div>COURSE:</div><div>At time of diagnosis Tessy was treated as out patient diet, exercise,some type of pills. She recall that pills brought sugar down a little. But she continued to drink nondiet COKE. </div><div> Next Insulin was added about six months after diagnosis. Also shestopped drinkign COKE. Now her BG came down alot. Dont remember readings then. </div><div> THen treated with just insulin. but manybe metformin too. </div><div> Remained pretty good. but always been a struggle. </div><div> Somie very high readings todya. Past monthscannot remember. </div><div>Her Refrigerator broke, off and on through this summer. HAD stored a lot of insulin in the Freezer. </div><div> NOw testing BG </div><div> </div><div>CURRENT STATUS:</div><div> Nutrition</div><div> Her current nutrition treatment plan include carbohydrate controlled diet, three meals daily with one evening snack</div><div> Typically BReakast she eats 1/2 or 1/4 bagel with craem cheese and TWO cuffs of coffee. </div><div>Snack 0 not so much ansy more.</div><div>Lunch -- Meals on wheels Hot meal</div><div>Snack - Might</div><div>Supper ; Sometime Skip </div><div>SOme Protein , one meat such as chicken, pork, beef or fish, or cottage cheese. </div><div>0-1 serving of corn, noodles pasta, potato, or rice,</div><div> 0-1 serving of sweet potato, carrots, </div><div>1 -2 servings of green vegetables </div><div>SNack after supper. Bedtime 7 pm</div><div>
</div><div>--------- Exercise &l t;/div><div>Her current Activity treatment plan includes lIMITED ACTIVITY. eXHAUSTED ALL THE TIME. ATTRIBUTED TO HER NEEUROPATH</div><div>
</div><div>Her current oral medication plan includes</div><div>#1 a Biguanide ( Metformin, 1000 MG ONCE AT NIG HT</div><div>no other pills now.</div><div>no oral insulin secretagogue (glim epiride glipizide glyburide), </div><div>no a TZD (pioglitazoe), an alpha glucosidase inhibitor (acarbose, glycet), </div><div>no DPP4 Inhibitor (Sitigliptin, Zaxagliptin, Linagliptin), </div><div>no SGLT2 inibitor (canaglifozin, empaglifloxin). </div><div>
</div><div>SGLT </div><div>She does not take a injectable GLP1 agonist such as Byetta (Exenatide), Victoza (Liraglutide), Bydureon (Exenetide long acting), or Ozempic. NOW but may have tried Bydureon Briefly </div><div>
</div><div>Her current insulin plan includes #1 Short-acting insulin Novolog, and #2 Long acting insuli: Levemir &l t;/div><div>
</div><div>DELIVERY SYSTEM:</div><div>She uses insulin pen ( FlexPen) , </div><div>
</div><div>BOLUS INSULIN </div><div>She uses Novolog 25 units up to 3 to 4 times </div><div>
</div><div>BASAL</div><div> Currently patient takes Levemir 35 units thre [place] dil y</div><div>
</div><div>
</div><div> </div><div> --------- Osmotic Symptoms</div><div>She feels no unusual thrist, does not void often during the day. She hasno nocturia.</div><div>
</div><div>
</div><div> </div><div> MEASURES of GLYCEMIC CONTROL:</div><div>Tests BG with Sensor. Does not also check with BG meter. </div><div>Keeps no log of BGs a </div><div>
</div><div>Could Only Say that her recent BGs have been elevaetd. </div><div> </div><div>pre breakfast BG</div><div>2 hour post breakfast BG not done</div><div>pre lunch BG not done</div><div>2 hour post lunch BG not done</div><div>pre supper BG:</div><div>2 hour post supper BG: not done</div><div>bedtime BG: not done</div><div>2 to 3 AM BG: not done</div><div>(copy of logs, home BG records scanned into Chart) </div><div> Sensor Readings </div><div>Patient doesuses a Continuous glucose sensor, FreeStyle Kaci 1 </div><div> </div><div>Sensor readings shows:</div><div>
</div><div> Detailed review from only limited data but sufficent to understand situation. </div><div> Daily Pattern</div><div> INVERTED u lOW 140 MIDNIGHT , 240 PRE LUNCH (11 aM) 160 TO 170, Evening 125</div><div> Time in Range </div><div> TAR 68%</div><div> TIR 31%</div><div> TBR 1% < /div><div> Hypoglycemic Events</div><div> Review of daily Graphs </div>&lt ;div>
</div><div>
</div><div> Labs </div><div>Most recent HgbA1c Prior HgbA1c</div><div>A1c 8.1% November 2021 </div><div>A1c 8.3% Jul 2021</div><div>
</div><div>Most recent Fructosamine: not done Prior Fructosa mine: not done</div><div> </div><div>Complications:</div><div>#1 Nerve </div><div>She reports no diminished sensation in both feet. She has no calluses, red areas, sores or ulceration on either foot [place]. . She describes no burning pain, sensitivity to touch in both feet. She does not see sees a dexigraph operator regularly every six months. </div><div>
</div><div>#2 Eye</div><div>She has had yearly exam with an computer systems support specialist since diagnosis of diabetes. Goes to [facility] every six omths. Followed for some conditiong.She has had blurring, no change in vision. She has glasses for reading and for seeing distant objects. She has never h sometimes. a No d cataracts. She has never had laser treatment for diabetic eye disease.</div><div>#3 Kidney</div><div>She has no known history of diabetic kidney disease. early diabetic kidney disease as shown by +urine microalbuminuria, advanced kidney disease with gross proteinuria and rising creating. She is now in stage 1 CKD.</div><div>#4 Vascular -Heart</div><div> She has had no prior Angina or Heart Attack (Myocardial Infarction). She never had a strss test Her last Stress Tests was done in. She had coronary stents placed in May 2021. She had CABG procedure done at [facility] in May 2021.</div><div>
</div><div>#5 Vascular - Brain</div><div> She has never had a Min Stroke two months ago.Went to [place] for Ne dentrurs. Nase[place]. [place], Did nto speak wel.. No recurrence.</div><div> or Transient Ischemic attacks. She has never had carotid ultrasound evaluation. Her last carotic Ultrasound evaluation was done May 2021. She had Carotid Artery Vascular Procedure in May 2021.</div><div>#6 Vascular -Peripheral</div><div> She has never had ischemic, intermitttent claudication in lower extremeties. She has never developed gangrene in toes, foot or leg. She had femoral bypass procedure in 2020.</div><div>
</div><div>Concurrent Metabolic Problems</div><div>#1 Hypertension YE </div><div>#2 Hyperlipidemia NO </div><div>#3 Obesity</div><div>#4 Thyroid Disease</div><div>YES </div><div>
</div><div>Labs from PCP, other Providers </div><div>Date</div><div>fasting Glucose</div><div>Hgb A1c</div><div>Lipids TC Trig HDL LDL </div><div>BUN Creat</div><div>Microalbumin/Creatinine Ratio</div><div>TSH</div><div> </div><div>Information from PCP </div><div> Summary </div& gt;<div>Fatty Liver Disease, Cirrhosis, Portal hypertension, Hepatomegaoly referred to Gastro </div><div>Depressoni </div><div>HTN </div><div>GERD </div><div>RLS </div><div>Migrain </div><div>Hypothy Surg Sp THyroidectomy Mar 2020 </div><div>DM with neuropatly, Retinopathy, Obesity, A1c 8.21% Some lows. Uses CGMS works with DM educaton </div><div>COPD, SMoker, </div><div>IBS </div><div>CHEST Pain declines further evalu </div><div>Fatiue </div><div>NEck Pain </div><div>Anemia w Peace iron levels Last Iron normal stores. </div><div>Dizzy </div><div>Osteopenia Last DEXA 2019 </div><div>Colong Polis </div><div>Aphasia improving </div><div>Sore throat </div><div> </div><div>Meds </div><div>Fentanyl 37.5 mg </div><div>DM Metform 1000 mg BID </div><div>Thy LT4 150 mcg daily </div><div>Neuro pregabalin 150 mg BID </div><div>HTN enalapril 30 mg daily </div><div>Lipid Simva 40mg </div><div>Vit D3 400 u tdail y </div><div>??? was on Buderone 2 mg weekly </div><div>Levemir injects in AM and Bedtime </div><div>Nvolog 10 to 15 units up to thre time dailhy </div> Review of Systems ? Comprehensive Adult Problem ROS Reported By: Patient Constitutional: Constitutional: good appetit e, no fever, normal activity level, no fatigue, excess we ight loss; Lost 50# sixe 2014 Eyes: Eyes: no eye pain, no eye re dness, no eye itchiness, no eye swelling, blurry vision; No diplopia ENMT: ENMT: no ear pain, no ear di scharge, no hearing loss, no sore throat, no hoarseness Cardiovascular: Cardiovascular: no chest adina n; No chest pressure, heaviness, or discomfort. No jaw, arm, neck pain, pressure, heaviness, discomfort of other anginal equivalent, no exetional dypnea, palpitations, no lightheaden ss or dizziness, Chest/Breasts: Breasts: no lumps, no tender ness, no discharge Respiratory: Respiratory: no cough, no wh eezing, normal respiration Gastrointestinal: GI: no difficulty swallowing , no abdominal pain, no vomiting, no blood in stools; no melen a, no change in bowel habits Genitourinary: : no pain with urination, no increase in frequency of urination, no vaginal discha rge; Postmenopausal many years Musculoskeletal: Musculoskeletal: no soft tis jorge swelling, no joint swelling, no myalgia, moves all extrem ities well Skin: Skin: no pain, no itchiness, no skin dryness, no flaking, no redness, no rash, no hives, no skin lesions; no excessive bruising. no red, painful or wide stretch trimble Neurological symptoms: Neuro: no numbness, no weakn ess, no tingling, no burning, no shooting pain, no headache, no dizziness, no loss of consciousness; Legs get dizz y and just fall out Psychiatric: Psych: no depression, no anx iety, no insomnia Endocrine: Endocrine: normal drinking, no temperature intolerance; No polyuria. No polydipisia Physical Exam ? [facility] General Adult Exam Reported By: Patient Constitutional: General Appearance: well-dev eloped, overweight. Level of Distress: NAD. Ambulation: ambulating normally Psychiatric: Insight: ; Insight Fair. Valier gement Fair. Mental Status: active and alert, normal mood, normal a ffect. Orientation: to time, to place, to person. Memory: recent me flaquita normal, remote memory abnormal Head: Head: normocephalic; No glass facies, not plethoric Eyes: Lids and Conjunctivae: non-i njected, no discharge, no pallor; No lid edema. No stare. Pupils: PERRLA. Fundoscopic: fundus not well-visualized. EOM: EOMI. Sclerae: non-icteric ENMT: Ears: EACs clear, TMs clear. Nose: nares patent. Lips, Teeth, and Gums: no mouth or lip ulcers , no bleeding gums. Oropharynx: moist mucous membranes, no erythem a, no exudates Neck: Neck: supple, trachea midlin e, no masses. Lymph Nodes: no cervical LAD. Thyroid: no enlargement , non-tender, no nodules Lungs: Respiratory effort: no dyspn ea. Auscultation: good air movement, no wheezing, no rales/crackles, no rhonchi Cardiovascular: Heart Auscultation: RRR, nor mal S1, normal S2, no murmurs, no rubs, no gallops Abdomen: Bowel Sounds: normal. Inspec tion and Palpation: soft, non-distended, no tenderness , no guarding, no rebound tenderness; No huge abdominal mass. Live r: non-tender, no hepatomegaly Musculoskeletal:: Motor Strength and Tone: nor mal motor strength, normal tone; Normal muscular bulk. Joints, Bones , and Muscles: normal movement of all extremities, no bony abnorma lities; No overt synovitis. No tenderness over long bones o f arms and legs. Extremities: no cyanosis Neurologic: Gait and Station: normal gai t, normal station. Cranial Nerves: grossly intact. Sensation: a bnormal; vibration intact diminidhed to 128 mHz Tuning fork. Reflexe s: DTRs abnormal, diminished; No delay in DTR relaxation time Skin: Inspection and palpation: no rash, no lesions, no ulcer, no abnormal nevi; No red, wide striae. No acanthosis Nigricans. No remarkable hyperpigmentation . No remarkable hirsutism Back: Thoracolumbar Appearance: no rmal curvature; No point tenderness over spinous processes
--- NOTE | 2022-04-10 09:45 | DI.CT_ITS ---
Exam(s) CT BRAIN NECK CTA EXAM: CT BRAIN NECK CTA CLINICAL HISTORY: dizziness, weakness. TECHNIQUE: Imaging Protocol: Axial CT angiography was performed with multi-slice acquisition and mu lti-planar and/or 3D reconstructions. CONTRAST MATERIAL: Intravenous: Omnipaque 350 Contrast volume:85 mL COMPARISON: CT ABD PELVIS WITH CONTRAST from 02/14/[address] HEAD WO/W from 10/08/2020 FINDINGS: CTA Neck W: Aortic arch anatomy: The aortic arch anatomy is not conventional. There is an aberrant right subclav hernan artery which originates as the final vessel off the aortic arch and crosses to the right side beh ind the esophagus and in front of the thoracic vertebra. There is no stenosis nor aneurysm at its ta keoff from the distal aortic arch nor in the crossover vessel. The right vertebral artery originates off of this vessel just right of midline. Anterior circulation: No significant stenosis of the great vessels off the aortic arch. Both common carotid arteries ascen d with normal luminal diameters. At the level the carotid bulbs and proximal internal carotid arteries there is minimal plaque without hemodynamically significant stenosis evident. Posterior circulation: The left vertebral artery originates in conventional fashion off the left subclavian artery without e vidence of stenosis at its origin. The right vertebral artery originates off of the aberrant right s ubclavian artery, slightly to the right of midline. No significant stenosis at its origin. Both vertebral arteries exhibit normal equal luminal diameters within the foramen transversarium. Both vertebral arteries contribute to the formation of the basilar artery at the skull base. Left ve rtebral artery is dominant. CTA Brain W: Anterior circulation: Both internal carotid arteries are patent in the skull base-carotid canals as well as within the cave rnous sinuses. The supraclinoid aspects of the ICAs are patent. Both A1 segments are patent as are the anterior cer ebral arteries and there is no evidence of aneurysm at the level of the anterior communicating artery . Both middle cerebral arteries are patent with no evidence of significant stenosis nor intraluminal th rombus. There also no aneurysms of these vessels. Posterior circulation: The basilar artery ascends in the midline. Distally it gives off patent bilateral superior cerebella r arteries. The basilar artery terminates as a patent left posterior cerebral artery. Right posterior cerebral a rtery is prominently provided for by posterior communicating artery on the right side of the kaltag-o f-Krishnamurthy. There is no evidence of aneurysm at the tip of the basilar artery nor elsewhere in the [id number]-tg-Xomq is. CT BRAIN: There is no evidence of intracranial hemorrhage, mass effect, or shift of midline structures. There are no extra-axial fluid collections. Ventricles are not enlarged or shifted. There are no ring enh ancing lesions in the brain and no abnormal meningeal enhancement. There is relatively symmetrical hypodensity in the periventricular white matter, consistent chronic s mall vessel disease, as previously seen. There are no ring enhancing lesions. No abnormal meningeal enhancement, focal nor diffuse. IMPRESSION: 1. Patent carotid arteries in the neck. No hemodynamically significant stenosis. 2. Patent vertebral arteries. 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 This is an anatomic variant. 3. Patent intracranial arteries. Right posterior cerebral artery is predominantly fed by posterior c ommunicating artery on the right side of the [id number]-ip-Ndbqdi. The left posterior cerebral artery or iginates in conventional fashion off of the tip of the basilar artery. 4. No aneurysms evident. 5. Bilateral periventricular white consistent chronic small vessel disease. This is similar to the f indings of CT scan performed 10/08/2020. RADIATION DOSE DELIVERED: 2,045.02mGy.cm Total DLP DATA REPOSITORY: All CT scans at this facility are submitted to the National Radiology Data Registry (NRDR) Dose Index Registry (DIR) with the [employer] (ACR). RADIATION OPTIMIZATION: All CT scans at this facility use at least one of these dose optimization te chniques: automated exposure control; mA and/or kV adjustment per patient size (includes targeted exa ms where dose is matched to clinical indication); or iterative reconstruction.
--- NOTE | 2022-04-10 09:45 | RT.EKG_ITS ---
APPROVED REPORT Exam: Resting ECG Reason for Exam: weakness Patient Location: E HR:79 bpm ECG Measurements Heart Rate 79 AXIS VA [id number] P [id number] QRSd 99 QRS -22 QT 401 T 57 QTc 459 Conclusion Atrial fibrillation...V-rate 76- 82, irreg A-activity Low voltage, precordial leads...precordial leads <1.0mV Probable left ventricular hypertrophy...multiple LVH criteria Physician: no stemi, sinus. stable
--- NOTE | 2022-04-10 09:45 | DI.RAD_ITS ---
Exam(s) XR CHEST 2V PA LATERAL EXAM: XR CHEST 2V PA LATERAL CLINICAL HISTORY: dizzy. TECHNIQUE: 2D digital imaging was performed. COMPARISON: CR,XR XR CHEST 2V PA LATERAL from 08/19/2020 FINDINGS: 2 views: Heart size is normal. The mediastinum is not widened. Lungs are clear. No infiltrates nor pleural effusions. IMPRESSION: No acute pulmonary findings. DATA REPOSITORY: RADIATION DOSE DELIVERED:
[2022-04-10 11:00] LABS: Absolute Basophil Count 0.08 10^3/uL (0.0-0.2); Absolute Monocyte Count 1.04 10^3/uL (0.1-0.8); Absolute Neutrophil Count 13.55 10^3/uL (1.2-6.7); Basophils % 0.5; Eosinophils % 0.1; Immature Grans % 0.6; Lymphocytes % 10.3; MCH 24.4 pg (27.0-33.0); MCHC 31.4 % (32.0-36.0); MCV 78 fL (80-95); MPV 9.9 fL (8.0-11.0); Monocytes % 6.3; Neutrophils % 82.2; Platelet Count 422 10^3/uL (130-400); RDW 15.6 % (11.7-14.6); RDW-SD 43.8 fL; WBC 16.48 10^3/uL (4.4-10.8)
[2022-04-10] MEDS: Metoclopramide 10 MG/2 ML VIAL 5 MG IVP (11:02)
[2022-04-10] MEDS: diazePAM 10 MG/2 ML SYR 2.5 MG IVP (11:02)
[2022-04-10 11:03] LABS: Absolute Eosinophil Count 0.02 10^3/uL (0.0-0.7)
[2022-04-10 11:16] LABS: BE (Venous) -1 mmol/L (-2-3); HCO3 (Venous) 24 mmol/L (23-28); O2 Sat (Venous) 95 %; TCO2 (Venous) 22 mmol/L (24-29); pCO2 (Venous) 36 mmHg (41-51); pH (Venous) 7.43 (7.31-7.41); pO2 (Venous) 74 mmHg
[2022-04-10 11:24] LABS: ALT 27 U/L (14-59); AST 18 U/L (15-37); Albumin 3.6 g/dL (3.4-5.0); Alkaline Phosphatase 116 U/L (46-116); Anion Gap 13.1 mmol/L (3-11); BUN 15 mg/dL (7-18); Bilirubin, Total 0.4 mg/dL (0.2-1.0); CO2 23.9 mmol/L (21.0-32.0); CREATININE 0.9 mg/dL (0.55-1.02); Calcium 9.3 mg/dL (8.5-10.1); Chloride 96 mmol/L (98-107); Estimated GFR 68.77 (mL/min/1.73m2); Glucose 363 mg/dL (74-106); Magnesium 1.2 mg/dL (1.8-2.4); Potassium 3.9 mmol/L (3.5-5.1); Sodium 133 mmol/L (136-145); Total Protein 8.4 g/dL (6.4-8.2); Troponin I < 50 ng/L (<or=60)
[2022-04-10] MEDS: Normal Saline Flush 10 ML SYR IVP (12:03)
[2022-04-10] MEDS: Omnipaque 350 MG/ML 500 ML BTL-Imaging package IJ (12:04)
[2022-04-10] MEDS: MAGNESIUM SULFATE 1 GM/100 ML BAG IVPB ×2 (12:14→13:46)
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
[2022-04-10 13:08] LABS: Bilirubin Negative (Negative); Blood Trace-intact (Negative); Clarity Clear (Clear); Glucose 500 mg/dL (Negative); Ketones 40 mg/dL (Negative); Leukocyte Esterase Negative (Negative); Nitrite Negative (Negative); Urobilinogen 0.2 EU/dL (Up TO 0.2); pH 6.5 (5-8)
[2022-04-10 13:15] LABS: RBC 0-2 HPF (0-2); WBC Negative HPF (0-5)
[2022-04-10 13:16] LABS: Bacteria Negative HPF (Negative); C & S Indicated? No; Casts 3-5 Hyaline LPF (Negative); Crystals Negative HPF (Negative); Epithelial Cells Few HPF (Negative); Mucus Negative (Negative)
[2022-04-10 13:52] LABS: *AMPHETAMINES SCREEN URINE Negative (Negative); *BARBITURATES SCREEN URINE Negative (Negative); *BENZODIAZEPINES SCREEN URINE Negative (Negative); Cannabinoids THC Positive (Negative); Cocaine Screen,Urine Negative (Negative); METHADONE URINE SCREEN Negative (Negative); OPIATES URINE SCREEN Negative (Negative)
[2022-04-10 13:59] LABS: Tricyclic Antidepressants Positive (Negative)
[2022-04-10 14:44] LABS: Anion Gap 11.4 mmol/L (3-11); BUN 14 mg/dL (7-18); CO2 23.6 mmol/L (21.0-32.0); CREATININE 0.8 mg/dL (0.55-1.02); Calcium 9.3 mg/dL (8.5-10.1); Chloride 95 mmol/L (98-107); Estimated GFR 79.22 (mL/min/1.73m2); Glucose 347 mg/dL (74-106); Magnesium 1.9 mg/dL (1.8-2.4); Potassium 3.9 mmol/L (3.5-5.1); Sodium 130 mmol/L (136-145)
--- NOTE | 2022-04-10 14:55 | CMSP_ITS ---
- If Service Date Differs Date of service: 04/10/22 Time of Service: 14:55 Care Management Safety Plan Status: Voluntary - Reason for Wait Reason for Wait: Inpatient Admission VOLUNTARY FOR INPATIENT PSYCHIATRIC STABILIZATION. Patient is appropriate in all interactions since arriving at [facility]; Pt has demonstrated appropriate coping and communication skills, has articulated his or her needs and concerns and is fully engaged during staff interactions. Safety plan has been established with patient, and care team, to adhere to patient goals, identify restrictions based on behavioral status, address nutrition, and determine allowed personal belongings, tools for hygiene and personal care. Determine level of activity including ambulation, level of supervision, visitors, and determine privileges based on behaviors and level of engagement by pt. SAFETY PLAN: 1. Will remain on suicide precautions. In Paper Clothes 2. Will remain in room under direct supervision of one-on-one staff at all times provided by [employer]; GONZALO, PUMP MACHINE OPERATOR adzing and boring machine feeder. 3. May have paper cups, plates, finger foods as well as a cardboard spoon with which to eat meals. 4. Follow [facility] Management of the Admitted Behavioral Health Patient policy. 5. Comfort bath system only, shower permitted with escort at RN discretion. 6. No personal belongings-soft items permitted at RN discretion. 7. Visitors-none at this time. 8. Activities: soft cart items approved per RN discretion. 9. Bathroom privileges with escort in the ED, available in room without limitation on M/S. 10. Phone: contact limited to family at this time, via cordless phone at RN discretion. 11. Due to VOLUNTARY status, if patient wishes to leave [facility], staff will contact [facility] Crisis Screener ([phone]) and On-Call Camp Recreation Specialist ([phone]) as soon as possible. In the event of elopement, notify [place] [employer] ([phone]). Patient is currently voluntarily at [facility] and seeking inpatient admission when a bed becomes available. [facility] Frontline Healthcare Architect will continue seeking placement. Please contact the Line Department Supervisor Camp Recreation Specialist ([phone]) and [facility] Healthcare Architect ([phone]) for any needed changes in the Safety Plan. Safety plan has been provided to interdepartmental care team.
[2022-04-10] MEDS: Nicotine 14 MG/24 HR PATCH TD (18:04)
[2022-04-10 18:42] LABS: Troponin I < 50 ng/L (<or=60)
[2022-04-10] MEDS: LORazepam 1 MG TAB PO (19:28)
[2022-04-10] MEDS: Ondansetron O.D.T. 4 MG TABEF PO (19:30)
--- NOTE | 2022-04-10 20:51 | NUR.NOTE ---
Nursing Note: This check writer noted a fentanyal patch on patient's lower abd with tape top of it . Patch is on home medication list when asked patient did not know what the patch was for or where she has pain
[2022-04-11] MEDS: Acetaminophen 500 MG TAB 1000 MG PO (00:25)
[2022-04-11] MEDS: LORazepam 1 MG TAB PO ×2 (05:04→08:20)
[2022-04-11 07:44] VITALS: BP 159/72; PULSE 87; RESP 20; O2SAT 94
[2022-04-11 07:48] VITALS: TEMP 36.6
--- NOTE | 2022-04-11 08:02 | NUR.NOTE ---
Nursing Note: Patient was moved to room 9 so there is TV available. patient states that she wants us to throw away her black\white shawl because it is soiled and will bring back bad memories.
--- NOTE | 2022-04-11 08:12 | NUR.NOTE ---
Nursing Note: Patient has two old fentanyl patches that she removed herself and gave to nurse (this scrip), disposed of in the sharps container, witnessed by Luis Adams RN.
[2022-04-11] MEDS: Enalapril 5 MG TAB 30 MG PO (08:20)
[2022-04-11] MEDS: Levothyroxine 150 MCG TAB PO (08:20)
[2022-04-11] MEDS: Cholecalciferol (Vitamin D3) 400 UNIT TAB PO ×2 (08:20→14:15)
[2022-04-11] MEDS: Amitriptyline 50 MG TAB 100 MG PO (08:20)
[2022-04-11] MEDS: Famotidine 20 MG TAB PO (08:20)
[2022-04-11] MEDS: Calcium Citrate 950 MG TAB PO (08:20)
[2022-04-11] MEDS: Pregabalin 50 MG CAP 150 MG PO (08:21)
[2022-04-11] MEDS: Magnesium Lactate-SR 84 MG TABCR PO (08:21)
[2022-04-11] MEDS: metFORMIN 500 MG TAB 1000 MG PO ×2 (08:21→17:34)
--- NOTE | 2022-04-11 10:00 | NUR.NOTE ---
Nursing Note: [employer] reports patient having multiple episodes of diarrhea this morning, MD informed, MD suggested PO fluids for now.
--- NOTE | 2022-04-11 12:33 | CMSP_ITS ---
- If Service Date Differs Date of service: 04/11/22 Time of Service: 12:33 Care Management Safety Plan Status: Voluntary - Reason for Wait Reason for Wait: Inpatient Admission VOLUNTARY FOR INPATIENT PSYCHIATRIC STABILIZATION. Patient is appropriate in all interactions since arriving at [facility]; Pt has demonstrated appropriate coping and communication skills, has articulated his or her needs and concerns and is fully engaged during staff interactions. A huddle is held at 13:[address] Daniel Cesar, ED provider, Marcia, nursing correctional case records supervisor, GUME Boyd, and BRITANY Duarte, in attendance. Safety plan has been established with patient, and care team, to adhere to patient goals, identify restrictions based on behavioral status, address nutrition, and determine allowed personal belongings, tools for hygiene and personal care. Determine level of activity including ambulation, level of supervision, visitors, and determine privileges based on behaviors and level of engagement by pt. SAFETY PLAN: 1. Will remain on suicide precautions. In Paper Clothes 2. Will remain in room under direct supervision of one-on-one staff at all times provided by [employer], GONZALO, DESTINATION COORDINATOR environmental engineering professor. 3. May have paper cups, plates, finger foods as well as a cardboard spoon with which to eat meals. 4. Follow [facility] Management of the Admitted Behavioral Health Patient policy. 5. Shower permitted with escort at RN discretion. 6. No personal belongings-soft items permitted at RN discretion. 7. Visitors-none at this time. 8. Activities: soft cart items, music tablet, television and other activities at RN discretion. 9. Bathroom privileges with escort in the ED, available in room without limitation on M/S. 10. Phone: may use [employer] phone at RN discretion. 11. Due to VOLUNTARY status, if patient wishes to leave [facility], staff will contact [facility] Crisis Screener ([phone]) and On-Call Rolling Chair Pusher ([phone]) as soon as possible. In the event of elopement, notify [facility] Police ([phone]). Patient is currently voluntarily at [facility] and seeking inpatient admission when a bed becomes available. [facility] Frontline In Home Sales Consultant will continue seeking placement. Please contact the Strategic Development Manager Rolling Chair Pusher ([phone]) and [facility] Cri sis Worker ([phone]) for any needed changes in the Safety Plan. Safety plan has been provided to interdepartmental care team.
--- NOTE | 2022-04-11 14:36 | CMPROGNOTE_ITS ---
- If Service Date Differs Date of service: 04/11/22 Time of Service: 14:36 Care Management Progress Note S/O: Tessy presents in the ED for suicidal ideation. She has a history of depression and has been psychiatrically hospitalized for an overdose in the past. She lives alone and sees Renu Waters for medication management at [facility]. Tessy is sleeping when CM comes to meet with her. CM will again attempt to meet with her at a later time. A: Tessy is a 71 year old female awaiting a voluntary psychiatric placement. P: Tessy is assessed by [facility] and is found to meet criteria for a voluntary psych hospitalization. Referrals are faxed to [facility], [facility], and [facility] for review. [facility] and [facility] currently do not have any bed availability. Tessy will remain at [facility] voluntarily and will be reassessed daily by [facility] until a placement can be secured for her. CM will continue to follow. - MH Services (Omit if N/A) Current MH Services: Psychiatric Inp - Status Status: Voluntary - Reason for Wait Reason for Wait: Inpatient Admission
--- NOTE | 2022-04-11 16:12 | PDOC.MHPN2 ---
Date of service: 04/11/22 Time of Service: 10:11 PHQ-9 Over the last 2 weeks, how often have you been bothered by any of the following problems? 1. Little interest or pleasure in doing things: nearly every day 2. Feeling down, depressed, or hopeless: nearly every day 3. Trouble falling or staying asleep, or sleeping too much: more than half the days 4. Feeling tired or having little energy: more than half the days 5. Poor appetite or overeating: nearly every day 6. Feeling bad about yourself - or that you are a failure or have let yourself and your family down: nearly every day 7. Trouble concentrating on things, such as reading the newspaper or watching television: not at all 8. Moving or speaking so slowly that other people could have noticed? - Or the opposite - being so fidgety or restless that you have been moving around a lot more than usual: nearly every day 9. Thoughts that you would be better off or of hurting yourself in some way: nearly every day Total score: 22 If you checked off any problems, how difficult have these problems made it for you to do your work, take care of things at home, or get along with other people?: extremely difficult Source: Developed by Drs. Adelso Coyle, Desi Miles, Sai Loving and colleagues, with an educational nika from [employer]. Suicide Severity Rate CSSRS Have you wished you were or wished you could go to sleep and not wake up?: Yes Have you actually had any thoughts of killing yourself?: Yes CSSRS2 Have you been thinking about how you might do this?: Yes Have you had these thoughts and had some intention of acting on them?: Yes Have you started to work out or worked out the details of how to kill yourself? Do you intend to carry out this plan?: Yes CSSRS3 Have you ever done anything, started to do anything or prepared to do anything to end your life?: No Screening Score Total Score: 4 Screening: Positive Mental Health Emergency Note Release [facility] release signed:: Yes Reason for Visit In the last 2 weeks has the pt presented for ES prior to today?: Yes, presented at Client Information Client is: New Well Housed: Yes Non Suicidal Self Injury Current: No History: No Safety Risk/Harm to Self or Others Current Ideation to Harm Self or Others: Yes to self. (Client is currently endorisng Suicidal ideations ) Intent: yes, has intent. Plan: yes,has a plan. History of suicide attempt: yes,history of suicide attempt reported. Details of previous suicide attempt: Client continues to endorse SI with intent and plan. Risk: Does risk to harm exist?: yes. Risk: Moderate Risk Duty to warn indicated: No Asssessment/Mental Status Appearance: Disheveled Attitude: Cooperative Behavior: Unremarkable Speech: Normal Affect: Flat and Cogruent with mood Mood: Sad and Depressed Thought process: Unremarkable Hallucinations: No Delusions: No Attention: Unremarkable Perception: Not impaired Orientation: Fully orientated Memory: Intact Insight: Fair Judgement: Fair Neurovegetative Symptoms Sleep: Decrease (Client reports that she did not sleep well last night, stating that she only slept with 2 sleep aids. ) Appetitie: Decrease (Client reports poor appetite, stating that she only ate one piece of toast and 2 bites of scrambled eggs for breakfast this morning. ) Interests: Decrease Energy: Decrease Libido: Not applicable Substance Use: Drug Issues: Other (Client reports that she uses marijuana daily. ) Do you use nicotine?: No Have you used substances in the last 7 days?: yes, Client reports that she uses marijuana daily. Additional Issues: Assaultive/Threatening Behavior: No Medical Concerns: No Client engaged in active self harm w/weapon: No Threatening to run away: No Child reported abuse/neglect: No Voluntarily presenting for services: Yes Domestic violence is a concern: No Extreme Psychosis or extreme behavior is present: No Impression Client is seen today for re-assessment via zoom at [facility] ED while awaiting for voluntary inpatient treatment for suicidal ideations with intent and plan. Client is continuing to endorse SI with plans to overdose on insulin or slit her wrists and self reports on a scale of 0-10 a 8/10. Client reports that she did not get adequate sleep last night, however reports that she was able to get some sleep after 2 doses of a sleep aid. Client states that her appetite has been poor. Client has history of inpatient treatment for her mental health in addition to a hx of SI an suicidal attempts which put her at higher risk. Client reports that she feels hopeless and unsafe. Resources Reosurces reviewed and given:: Other Plan/Disposition Recommended Disposition: Hospitalization (Referrals faxed to [facility], , and [facility]. ) facilities contacted. Plan: Client will remain at [facility] ED on voluntary status pending admission to an inpatient facility. Referrals have been faxed to [facility], [facility], , and [facility] Person reported agreement to plan: Yes Facilities contacted if Applicable [facility] Not accepted, No bed available [facility] Not accepted, No bed available [facility] Not accepted, No bed available, [facility] Not accepted, No bed available Reports/communication Outcome discussed with: ED/Personnel (Verbal passover given to ED nurse. ) Final Disposition/Discharge Transportation Checklist completed and faxed: No
[2022-04-11] MEDS: Nicotine 14 MG/24 HR PATCH TD (17:34)
[2022-04-11] MEDS: Ibuprofen 400 MG TAB PO (18:36)
[2022-04-11] MEDS: Lidocaine 5% Patch 1 PATCH TP (18:36)
[2022-04-11] MEDS: LORazepam 1 MG TAB 2 MG PO (18:37)
--- NOTE | 2022-04-11 20:11 | ED.PROG_ITS ---
Date of service: 04/11/22 Time of Service: 20:11 Medical Decision Making Patient signed out to me awaiting psychiatric treatment placement. Patient noted be medically clear at time of signout. Patient is now receiving Levemir twice daily. Patient upset at 1 point today requesting fentanyl patch. Fentanyl patches not listed in patient's home medications. Plan to confirm this prescription as soon as possible. Patient was provided ibuprofen, lidocaine patch. She was anxious and given Ativan 2 g PO. Sign Out Sign Out Data: Sign Out Comment: pending [facility] consultation medically cleared Last updated by Christina Bryson PA at 04/10/22 15:55 Sign Out Comment: Patient pending voluntary admission. Patient has been calm and cooperative. She did request lorazepam for increased anxiety but otherwise has not needed any acute meds and has not had any episodes of escalation. Last updated by Elie Hopkins NP at 04/10/22 22:58 Sign Out Comment: No events overnight. Medically cleared. Voluntary. Awaiting placement. Last updated by Katelynn Gan DO at 04/11/22 07:40 Discharge Plan Disposition Patient Disposition: STILL A PATIENT Discharge Details Clinical Impression: Dizziness, Hypomagnesemia, Suicidal ideations, Depression, Hyperglycemia, Diabetes Primary Care Provider: Joellen Molina ED Provider: Daniel Cesar Home Meds and New Rx's Prescriptions: Continued amitriptyline 100 mg tablet 100 mg PO DAILY lorazepam 1 mg tablet 1 mg PO BID MEDICAL [place]IJUANA Inhalation DAILY insulin asp prt-insulin aspart [Novolog Mix 70-30FlexPen U-100] 100 UNIT/1 ML insulin pen 50 unit Sub-Q AC magnesium L-lactate [Magtab] 84 mg tablet extended release 84 mg PO DAILY levothyroxine 150 mcg capsule 150 mcg PO DAILY enalapril maleate 20 mg tablet 30 mg PO DAILY albuterol sulfate [Ventolin HFA] 90 mcg/actuation HFA aerosol inhaler 2 puff inhalation Q6H PRN cholecalciferol (vitamin D3) 10 mcg (400 unit) tablet 400 unit PO TID docusate sodium [Colace] 100 mg capsule 100 mg PO DAILY tiotropium bromide 18 mcg capsule, w/inhalation device 1 cap inhalation DAILY Rx Instructions: puncture 1 cap using device; one dose = 2 inhalations omeprazole 40 mg capsule,delayed release(DR/EC) 40 mg PO DAILY pregabalin 150 mg capsule 150 mg PO BID nicotine [Nicoderm CQ] 14 mg/24 hr patch 24 hour 1 patch transdermal DAILY famotidine [Acid Auto Specialty Services Manager (famotidine)] 20 mg tablet 20 mg PO DAILY calcium citrate 200 mg (950 mg) tablet 200 mg PO TID simvastatin 40 MG tablet 40 mg PO HS pramipexole [Mirapex] 0.5 MG tablet 0.5 mg PO HS metformin [Glucophage] 1,000 MG tablet 1,000 mg PO BID Bydureon 2 MG/0.65 ML pen injector 2 mg SQ .QMONDAY Levemir FlexTouch U-100 Insuln 300 UNITS/3 ML insulin pen 55 units Sub-Q HS Rx Instructions: 09/23/15 Now 55 Units PM. JMC albuterol sulfate [Ventolin HFA] 90 mcg/actuation HFA aerosol inhaler 2 puff INHALATION PRN PRN Rexulti 1 mg tablet 1 mg PO DAILY Bydureon BCise 2 mg/0.85 mL auto-injector 2 mg SUBCUT QWEEK Rx Instructions: 1x/week on mondays Levemir U-100 Insulin 100 unit/mL solution 20 - 25 ml SUBCUT BID Label Comments: Inject subcutaneously twice a day Injects 20 to 25 units subcutaneously in the morning and at night also depends on the reader fentanyl 37.5 mcg/hour patch 72 hour 37.5 patch transdermal Q3D enalapril maleate 10 mg tablet 1 tab DAILY lidocaine 5 % cream 1 applic DAILY Label Comments: APPLY A SMALL AMOUNT TO ONLY THE SKIN ON THE BOTTOM OF YOUR FEET enalapril maleate 20 mg tablet 20 mg DAILY amitriptyline 100 mg tablet 100 mg DAILY magnesium L-lactate [Magtab] 84 mg tablet extended release 84 mg PO BID Bydureon BCise 2 mg/0.85 mL auto-injector 2 mg SUBCUT QWEEK
[2022-04-11 21:00] VITALS: BP 137/72; PULSE 72; RESP 16; TEMP 36.9; O2SAT 99
--- NOTE | 2022-04-12 00:24 | NUR.NOTE ---
At 2315 Patient was upset appeared to be crying. This life insurance underwriter asked her what is wrong. Patient stated her head keeps spinning and she can't get things off her mind. Patient stated she wants to go home but doesn't have a ride and maybe she should leave and come back to seek help. This life insurance underwriter asked her what she would do different at home verses here. Patient stated she would pack some of her things. This life insurance underwriter encouraged her to get the help she needs and maybe she can re-evaluate how she feels during the day. Patient mentioned her sister is mean to her and gives her rides to the store and causes a scene in front of people. This life insurance underwriter asked patient if she can use a different mode of transportation like [facility]. Patient said the business computers teacher from [facility] told her that they only transport people if it is medically necessary. This life insurance underwriter asked patient if there are any other buses around this area and patient stated there isn't. She stated she has bursitis in her hip and has difficulty walking long distances and uses a wheelchair that has a seat to sit if she needs to. This life insurance underwriter asked patient if she needs anything and patient said no, thank you for listening.
[2022-04-12] MEDS: LORazepam 1 MG TAB PO ×4 (01:42→20:20)
[2022-04-12] MEDS: Pregabalin 50 MG CAP 150 MG PO ×3 (01:43→20:19)
[2022-04-12] MEDS: Simvastatin 40 MG TAB PO ×2 (01:43→20:22)
[2022-04-12] MEDS: Magnesium Lactate-SR 84 MG TABCR PO ×3 (01:43→20:37)
[2022-04-12] MEDS: Pramipexole 0.5 MG TAB PO ×2 (01:43→20:37)
[2022-04-12] MEDS: Cholecalciferol (Vitamin D3) 400 UNIT TAB PO ×4 (01:44→20:22)
--- NOTE | 2022-04-12 02:51 | ED.PROG_ITS ---
Date of service: 04/12/22 Time of Service: 02:51 Medical Decision Making pt still pending placement for depression/si. Pt calm and cooperative, no new complaints, will continue to monitor until placement found or inpatient bed at [facility] is available Sign Out Sign Out Data: Sign Out Comment: pending [facility] consultation medically cleared Last updated by Christina Bryson PA at 04/10/22 15:55 Sign Out Comment: Patient pending voluntary admission. Patient has been calm and cooperative. She did request lorazepam for increased anxiety but otherwise has not needed any acute meds and has not had any episodes of escalation. Last updated by Elie Hopkins NP at 04/10/22 22:58 Sign Out Comment: No events overnight. Medically cleared. Voluntary. Awaiting placement. Last updated by Katelynn Gan DO at 04/11/22 07:40 Sign Out Comment: Patient here voluntarily awaiting psychiatric treatment placement. Plan in the morning is to confirm that fentanyl patch prescription and provide if prescribed. Last updated by Daniel Cesar MD at 04/11/22 20:14 Discharge Plan Disposition Patient Disposition: STILL A PATIENT Discharge Details Clinical Impression: Dizziness, Hypomagnesemia, Suicidal ideations, Depression, Hyperglycemia, Diabetes Primary Care Provider: Joellen Molina ED Provider: Dru Randall Home Meds and New Rx's Prescriptions: Continued amitriptyline 100 mg tablet 100 mg PO DAILY lorazepam 1 mg tablet 1 mg PO BID MEDICAL [place]IJ[place] Inhalation DAILY insulin asp prt-insulin aspart [Novolog Mix 70-30FlexPen U-100] 100 UNIT/1 ML insulin pen 50 unit Sub-Q AC magnesium L-lactate [Magtab] 84 mg tablet extended release 84 mg PO DAILY levothyroxine 150 mcg capsule 150 mcg PO DAILY enalapril maleate 20 mg tablet 30 mg PO DAILY albuterol sulfate [Ventolin HFA] 90 mcg/actuation HFA aerosol inhaler 2 puff inhalation Q6H PRN cholecalciferol (vitamin D3) 10 mcg (400 unit) tablet 400 unit PO TID docusate sodium [Colace] 100 mg capsule 100 mg PO DAILY tiotropium bromide 18 mcg capsule, w/inhalation device 1 cap inhalation DAILY Rx Instructions: puncture 1 cap using device; one dose = 2 inhalations omeprazole 40 mg capsule,delayed release(DR/EC) 40 mg PO DAILY pregabalin 150 mg capsule 150 mg PO BID nicotine [Nicoderm CQ] 14 mg/24 hr patch 24 hour 1 patch transdermal DAILY famotidine [Acid Activities Manager (famotidine)] 20 mg tablet 20 mg PO DAILY calcium citrate 200 mg (950 mg) tablet 200 mg PO TID simvastatin 40 MG tablet 40 mg PO HS pramipexole [Mirapex] 0.5 MG tablet 0.5 mg PO HS metformin [Glucophage] 1,000 MG tablet 1,000 mg PO BID Bydureon 2 MG/0.65 ML pen injector 2 mg SQ .QMONDAY Levemir FlexTouch U-100 Insuln 300 UNITS/3 ML insulin pen 55 units Sub-Q HS Rx Instructions: 09/23/15 Now 55 Units PM. JMC albuterol sulfate [Ventolin HFA] 90 mcg/actuation HFA aerosol inhaler 2 puff INHALATION PRN PRN Rexulti 1 mg tablet 1 mg PO DAILY Bydureon BCise 2 mg/0.85 mL auto-injector 2 mg SUBCUT QWEEK Rx Instructions: 1x/week on mondays Levemir U-100 Insulin 100 unit/mL solution 20 - 25 ml SUBCUT BID Label Comments: Inject subcutaneously twice a day Injects 20 to 25 units subcutaneously in the morning and at night also depends on the reader fentanyl 37.5 mcg/hour patch 72 hour 37.5 patch transdermal Q3D enalapril maleate 10 mg tablet 1 tab DAILY lidocaine 5 % cream 1 applic DAILY Label Comments: APPLY A SMALL AMOUNT TO ONLY THE SKIN ON THE BOTTOM OF YOUR FEET enalapril maleate 20 mg tablet 20 mg DAILY amitriptyline 100 mg tablet 100 mg DAILY magnesium L-lactate [Magtab] 84 mg tablet extended release 84 mg PO BID Bydureon BCise 2 mg/0.85 mL auto-injector 2 mg SUBCUT QWEEK
--- NOTE | 2022-04-12 07:46 | ED.PROG_ITS ---
Date of service: 04/12/22 Time of Service: 07:30 Medical Decision Making Patient signed out to me at time of shift change by Dr. Randall with inpatient placement pending, patient status is voluntary. Patient stated that she wanted to leave the hospital to take care of her fish and her plants and that she would then return to the hospital to continue to wait for inpatient placement. Patient had a discussion over the phone with mental health regarding leaving the emergency department temporarily with escort versus outpatient treatment and safety planning. Per mental health, patient stated to them that she would not allow anybody to accompany her home, nor would she agree to any type of safety planning for outpatient treatment. Patient reiterated to me that she would not allow anybody to accompany her home temporarily for return to emergency department. She would also not safety plan with me. Patient was seen by mental health in person where they continued to discuss possibility of safety planning, and patient continued her refuse. Patient crying whenever safety planning is discussed. This behavior in addition to initial statement that she had plans to kill herself either by slitting her wrists or by overdosing on her insulin are concerning for suicidal intent, patient being a risk to herself. Mental health recommends EE, I agree.. Paperwork signed. Patient calm and cooperative. Labs were sent today given prior electrolyte abnormalities, sodium noted to be 129, creatinine 1.4, mag nesium 1.7. Will replete magnesium. Plan for repeat labs in the morning, these were ordered. Patient signed out to Dr. Willett at time of shift change with inpatient placement, a.m. labs pending. Medical Records Medical records reviewed: Yes I reviewed the patient's medical records. Lab Data Lab results reviewed: Yes I reviewed the patient's lab results. Sign Out Sign Out Data: Sign Out Comment: pending [facility] consultation medically cleared Last updated by Christina Bryson PA at 04/10/22 15:55 Sign Out Comment: Patient pending voluntary admission. Patient has been calm and cooperative. She did request lorazepam for increased anxiety but otherwise has not needed any acute meds and has not had any episodes of escalation. Last updated by Elie Hopkins NP at 04/10/22 22:58 Sign Out Comment: No events overnight. Medically cleared. Voluntary. Awaiting placement. Last updated by Katelynn Gan DO at 04/11/22 07:40 Sign Out Comment: Patient here voluntarily awaiting psychiatric treatment placement. Plan in the morning is to confirm that fentanyl patch prescription and provide if prescribed. Last updated by Daniel Cesar MD at 04/11/22 20:14 Sign Out Comment: voluntary for psychiatric placement depression/si Last updated by Dru Randall MD at 04/12/22 02:53 Discharge Plan Disposition Patient Disposition: STILL A PATIENT Discharge Details Clinical Impression: Dizziness, Hypomagnesemia, Suicidal ideations, Depression, Hyperglycemia, Diabetes Primary Care Provider: Joellen Molina ED Provider: Raeann Cesar Home Meds and New Rx's Prescriptions: Continued amitriptyline 100 mg tablet 100 mg PO DAILY lorazepam 1 mg tablet 1 mg PO BID MEDICAL [place]IJ[place] Inhalation DAILY insulin asp prt-insulin aspart [Novolog Mix 70-30FlexPen U-100] 100 UNIT/1 ML insulin pen 50 unit Sub-Q AC magnesium L-lactate [Magtab] 84 mg tablet extended release 84 mg PO DAILY levothyroxine 150 mcg capsule 150 mcg PO DAILY enalapril maleate 20 mg tablet 30 mg PO DAILY albuterol sulfate [Ventolin HFA] 90 mcg/actuation HFA aerosol inhaler 2 puff inhalation Q6H PRN cholecalciferol (vitamin D3) 10 mcg (400 unit) tablet 400 unit PO TID docusate sodium [Colace] 100 mg capsule 100 mg PO DAILY tiotropium bromide 18 mcg capsule, w/inhalation device 1 cap inhalation DAILY Rx Instructions: puncture 1 cap using device; one dose = 2 inhalations omeprazole 40 mg capsule,delayed release(DR/EC) 40 mg PO DAILY pregabalin 150 mg capsule 150 mg PO BID nicotine [Nicoderm CQ] 14 mg/24 hr patch 24 hour 1 patch transdermal DAILY famotidine [Acid Master Control Supervisor (famotidine)] 20 mg tablet 20 mg PO DAILY calcium citrate 200 mg (950 mg) tablet 200 mg PO TID simvastatin 40 MG tablet 40 mg PO HS pramipexole [Mirapex] 0.5 MG tablet 0.5 mg PO HS metformin [Glucophage] 1,000 MG tablet 1,000 mg PO BID Bydureon 2 MG/0.65 ML pen injector 2 mg SQ .QMONDAY Levemir FlexTouch U-100 Insuln 300 UNITS/3 ML insulin pen 55 units Sub-Q HS Rx Instructions: 09/23/15 Now 55 Units PM. JMC albuterol sulfate [Ventolin HFA] 90 mcg/actuation HFA aerosol inhaler 2 puff INHALATION PRN PRN Rexulti 1 mg tablet 1 mg PO DAILY Bydureon BCise 2 mg/0.85 mL auto-injector 2 mg SUBCUT QWEEK Rx Instructions: 1x/week on mondays Levemir U-100 Insulin 100 unit/mL solution 20 - 25 ml SUBCUT BID Label Comments: Inject subcutaneously twice a day Injects 20 to 25 units subcutaneously in the morning and at night also depends on the reader fentanyl 37.5 mcg/hour patch 72 hour 37.5 patch transdermal Q3D enalapril maleate 10 mg tablet 1 tab DAILY lidocaine 5 % cream 1 applic DAILY Label Comments: APPLY A SMALL AMOUNT TO ONLY THE SKIN ON THE BOTTOM OF YOUR FEET enalapril maleate 20 mg tablet 20 mg DAILY amitriptyline 100 mg tablet 100 mg DAILY magnesium L-lactate [Magtab] 84 mg tablet extended release 84 mg PO BID Bydureon BCise 2 mg/0.85 mL auto-injector 2 mg SUBCUT QWEEK
[2022-04-12] MEDS: Levothyroxine 150 MCG TAB PO (07:52)
[2022-04-12] MEDS: Calcium Citrate 950 MG TAB PO (08:18)
[2022-04-12] MEDS: metFORMIN 500 MG TAB 1000 MG PO ×2 (08:18→16:36)
[2022-04-12] MEDS: Amitriptyline 50 MG TAB 100 MG PO (08:19)
[2022-04-12] MEDS: Enalapril 5 MG TAB 30 MG PO (08:19)
[2022-04-12] MEDS: Famotidine 20 MG TAB PO (08:19)
--- NOTE | 2022-04-12 09:04 | PDOC.CMSAFED ---
- If Service Date Differs Date of service: 04/12/22 Time of Service: 09:13 Care Management Safety Plan Status: Voluntary - Reason for Wait Reason for Wait: Inpatient Admission VOLUNTARY FOR INPATIENT PSYCHIATRIC STABILIZATION. Patient is appropriate in all interactions since arriving at [facility]; Pt has demonstrated appropriate coping and communication skills, has articulated his or her needs and concerns and is fully engaged during staff interactions. Safety plan has been established with patient, and care team, to adhere to patient goals, identify restrictions based on behavioral status, address nutrition, and determine allowed personal belongings, tools for hygiene and personal care. Determine level of activity including ambulation, level of supervision, visitors, and determine privileges based on behaviors and level of engagement by pt. SAFETY PLAN: 1. Will remain on suicide precautions. In Paper Clothes 2. Will remain in room under direct supervision of one-on-one staff at all times provided by CPSO, CARE MANAGEMENT ASSISTANT, PRODUCT SAFETY COMPLIANCE LEADER selenium plant operator. 3. May have paper cups, plates, finger foods as well as a cardboard spoon with which to eat meals. 4. Follow [facility] Management of the Admitted Behavioral Health Patient policy. 5. Comfort bath system and Shower permitted with escort at RN discretion. 6. No personal belongings-soft items permitted at RN discretion. 7. Visitors-none at this time. 8. Activities: soft cart items, music tablet, television and other activities at RN discretion. 9. Bathroom privileges with escort in the ED, available in room without limitation on M/S. 10. Phone: may use [employer] hospital phone at RN discretion. 11. Due to VOLUNTARY status, if patient wishes to leave [facility], staff will contact [facility] Crisis Screener ([phone]) and On-Call Mason Tender Restoration Labor ([phone]) as soon as possible. In the event of elopement, notify [place] [employer] Police ([phone]). Patient is currently voluntarily at [facility] and seeking inpatient admission when a bed becomes available. [facility] Frontline Microsoft Dynamics Developer will continue seeking placement. Please contact the Sandwich Machine Operator Mason Tender Restoration Labor ([phone]) and [facility] Microsoft Dynamics Developer ([phone]) for any needed changes in the Safety Plan. Safety plan has been provided to interdepartmental care team.
[2022-04-12 09:32] LABS: Anion Gap 11.7 mmol/L (3-11); BUN 33 mg/dL (7-18); CO2 24.3 mmol/L (21.0-32.0); CREATININE 1.4 mg/dL (0.55-1.02); Chloride 93 mmol/L (98-107); Estimated GFR 40.47 (mL/min/1.73m2); Glucose 397 mg/dL (74-106); Magnesium 1.7 mg/dL (1.8-2.4); Potassium 4.1 mmol/L (3.5-5.1); Sodium 129 mmol/L (136-145)
--- NOTE | 2022-04-12 10:04 | CMPROGNOTE_ITS ---
- If Service Date Differs Date of service: 04/12/22 Time of Service: 10:04 Care Management Progress Note S/O: Tessy was sitting on the side of her bed, watching tv. CM assessment included review of current natural and service supports; Tessy reported psycho therapy with Mauri at [facility] as well as med management with Tessy Waters at [facility]. She reported plans to apply for LTM and reported Dolores Chung at [facility] is helping her with this. Tessy reported being on [employer] and struggling with meeting basic needs due to inflation and lack of transportation. She does have meals on wheels, which she reports is helpful. Discussion of LTM; Tessy expresses considering level 3; CM provided psychoeducation central to MEL[facility]IE coverage and waitlist as well as application review. CM also encouraged Tessy discuss transport service through [facility] for errands as well. Tessy became weepy discussing natural supports, describing a lifelong struggle with family relationships, especially her sisters as well as a lifelong struggle with SI-starting from age 12. Tessy really enjoys craft making and shares stories of favorite creations; scrapbooks, ride along sheep, and art easels for her nieces and nephew. A: 71 year old female presenting to [facility] ED with hx of depression, BPD and SI. P: Tessy reports intentions to continue to seek voluntary treatment. However, she expresses concerns over returning home to retrieve clothes and take care of her pets and plants prior to returning to continue to seek placement. She will discuss further with [facility] to determine plan and is agreeable to remaining at [facility] until she speaks with [facility]. - MH Services (Omit if N/A) Current MH Services: Internal [facility] (Psychotherapy, Med Management) - Status Status: Voluntary - Reason for Wait Reason for Wait: Inpatient Admission
[2022-04-12] MEDS: fentaNYL 12 MCG PATCH TD (10:05)
[2022-04-12] MEDS: fentaNYL 25 MCG PATCH TD (10:09)
--- NOTE | 2022-04-12 14:44 | CMSP_ITS ---
- If Service Date Differs Date of service: 04/12/22 Time of Service: 14:44 Care Management Safety Plan Status: Involuntary - Reason for Wait Reason for Wait: Inpatient Admission INVOLUNTARY FOR INPATIENT PSYCHIATRIC STABILIZATION. Tessy has been at [facility] since April 11 awaiting a voluntary psych placement. Today, she requested to go home to feed her fish and to take care of a few errands. [facility] was contacted and Vianca, [facility] Biomass Plant Manager, re-evaluated Tessy and attempted to contract for safety so she could return home. Per Vianca, Tessy became upset during the assessment, was unable to enter into a safety plan and is now refusing a voluntary psych admission. She is subsequently placed on involuntary status. Safety plan has been established to meet the needs of the patient, and consideration of the care team, to adhere to patient goals, identify restrictions based on behavioral status, address nutrition, and determine allowed personal belongings, tools for hygiene and personal care. Determine level of activity including ambulation, level of supervision, visitors, and determine privileges based on behaviors and level of engagement by pt. SAFETY PLAN: 1. Will remain on SI/HI precautions. In Paper Clothes 2. Will remain in room under direct supervision of one-on-one staff at all times provided by CPSO, SKILLED HELPER, DESILVERIZER order administrator. 3. May have paper cups, plates, finger foods as well as a cardboard spoon to eat meals. 4. Follow [facility] Management of the Admitted Behavioral Health Patient policy. 5. Shower permitted with escort at RN discretion. 6. No personal belongings - soft items permitted at RN discretion. 7. Visitors: None at this time. 8. Activities: Soft cart items, music tablet, television and other activities at RN discretion. 9. Bathroom privileges with escort in the ED, available in room without limitation on M/S. 10. Phone: May use [employer] hospital phone at RN discretion. 11. Due to INVOLUNTARY status, patient is being held at [facility] by the Department of Mental Health (DM) until 2nd certification by [facility] Psychiatrist can be performed (within 24 hours). Staff will provide de-escalation support (CPI) as needed. If patient wishes to leave [facility], staff will contact [facility] Crisis Screener ([phone]) and On-Call College Archivist ([phone]) as soon as possible. In the event of elopement, notify [facility] Police ([phone]). Patient is currently involuntarily at [facility]. [facility] Frontline Biomass Plant Manager will continue seeking placement. Please contact the Software Licensing Executive College Archivist ([phone]) for any needed changes to Safety Plan. Safety plan has been provided to interdepartmental care team. Patient will be transported by oil well pumper at time of discharge.
[2022-04-12] MEDS: Insulin Asp Prt/Insulin Aspart 70/30 Mix 300 UNITS/3 ML PEN SC (16:35)
[2022-04-12] MEDS: Magnesium Oxide 400 MG TAB PO (16:36)
[2022-04-12 20:00] VITALS: BP 127/89; PULSE 78; RESP 24; TEMP 36.5; O2SAT 95
[2022-04-12] MEDS: Loperamide 2 MG CAP PO (20:19)
--- NOTE | 2022-04-12 23:06 | W.EDPROG ---
Date of service: 04/12/22 Time of Service: 23:06 Medical Decision Making patient no involuntary for depression/si, no acute complaints, will continue to monitor until placement is found Sign Out Sign Out Data: Sign Out Comment: pending [facility] consultation medically cleared Last updated by Christina Bryson PA at 04/10/22 15:55 Sign Out Comment: Patient pending voluntary admission. Patient has been calm and cooperative. She did request lorazepam for increased anxiety but otherwise has not needed any acute meds and has not had any episodes of escalation. Last updated by Elie Hopkins NP at 04/10/22 22:58 Sign Out Comment: No events overnight. Medically cleared. Voluntary. Awaiting placement. Last updated by Katelynn Gan DO at 04/11/22 07:40 Sign Out Comment: Patient here voluntarily awaiting psychiatric treatment placement. Plan in the morning is to confirm that fentanyl patch prescription and provide if prescribed. Last updated by Daniel Cesar MD at 04/11/22 20:14 Sign Out Comment: voluntary for psychiatric placement depression/si Last updated by Dru Randall MD at 04/12/22 02:53 Sign Out Comment: Patient signed out to Dr. Willett at time of shift change with inpatient placement, April 13 a.m. labs pending. Status is now INVOLUNTARY. Last updated by Raeann Cesar MD at 04/12/22 16:34 Sign Out Comment: SI, EE, second cert complete; awaiting placement Last updated by Franklyn Willett MD at 04/12/22 22:46 Sign Out Comment: involuntary for si/depression, awaiting placement Last updated by Dru Randall MD at 04/12/22 23:03 Discharge Plan Disposition Patient Disposition: STILL A PATIENT Discharge Details Clinical Impression: Dizziness, Hypomagnesemia, Suicidal ideations, Depression, Hyperglycemia, Diabetes Primary Care Provider: Joellen Molina ED Provider: Dru Randall Home Meds and New Rx's Prescriptions: Continued amitriptyline 100 mg tablet 100 mg PO DAILY lorazepam 1 mg tablet 1 mg PO BID MEDICAL MARIJUANA Inhalation DAILY insulin asp prt-insulin aspart [Novolog Mix 70-30FlexPen U-100] 100 UNIT/1 ML insulin pen 50 unit Sub-Q AC magnesium L-lactate [Magtab] 84 mg tablet extended release 84 mg PO DAILY levothyroxine 150 mcg capsule 150 mcg PO DAILY enalapril maleate 20 mg tablet 30 mg PO DAILY albuterol sulfate [Ventolin HFA] 90 mcg/actuation HFA aerosol inhaler 2 puff inhalation Q6H PRN cholecalciferol (vitamin D3) 10 mcg (400 unit) tablet 400 unit PO TID docusate sodium [Colace] 100 mg capsule 100 mg PO DAILY tiotropium bromide 18 mcg capsule, w/inhalation device 1 cap inhalation DAILY Rx Instructions: puncture 1 cap using device; one dose = 2 inhalations omeprazole 40 mg capsule,delayed release(DR/EC) 40 mg PO DAILY pregabalin 150 mg capsule 150 mg PO BID nicotine [Nicoderm CQ] 14 mg/24 hr patch 24 hour 1 patch transdermal DAILY famotidine [Acid Regulatory Process Manager (famotidine)] 20 mg tablet 20 mg PO DAILY calcium citrate 200 mg (950 mg) tablet 200 mg PO TID simvastatin 40 MG tablet 40 mg PO HS pramipexole [Mirapex] 0.5 MG tablet 0.5 mg PO HS metformin [Glucophage] 1,000 MG tablet 1,000 mg PO BID Bydureon 2 MG/0.65 ML pen injector 2 mg SQ .QMONDAY Levemir FlexTouch U-100 Insuln 300 UNITS/3 ML insulin pen 55 units Sub-Q HS Rx Instructions: 09/23/15 Now 55 Units PM. C albuterol sulfate [Ventolin HFA] 90 mcg/actuation HFA aerosol inhaler 2 puff INHALATION PRN PRN Rexulti 1 mg tablet 1 mg PO DAILY Bydureon BCise 2 mg/0.85 mL auto-injector 2 mg SUBCUT QWEEK Rx Instructions: 1x/week on mondays Levemir U-100 Insulin 100 unit/mL solution 20 - 25 ml SUBCUT BID Label Comments: Inject subcutaneously twice a day Injects 20 to 25 units subcutaneously in the morning and at night also depends on the reader fentanyl 37.5 mcg/hour patch 72 hour 37.5 patch transdermal Q3D enalapril maleate 10 mg tablet 1 tab DAILY lidocaine 5 % cream 1 applic DAILY Label Comments: APPLY A SMALL AMOUNT TO ONLY THE SKIN ON THE BOTTOM OF YOUR FEET enalapril maleate 20 mg tablet 20 mg DAILY amitriptyline 100 mg tablet 100 mg DAILY magnesium L-lactate [Magtab] 84 mg tablet extended release 84 mg PO BID Bydureon BCise 2 mg/0.85 mL auto-injector 2 mg SUBCUT QWEEK
[2022-04-13] VITALS (7 sets, daily range): BP systolic 106–127; BP diastolic 56–80; PULSE 62–76; RESP 18–24; TEMP 36.1–36.6; O2SAT 92–98
[2022-04-13] MEDS: Levothyroxine 150 MCG TAB PO (07:57)
[2022-04-13] MEDS: metFORMIN 500 MG TAB 1000 MG PO ×2 (07:58→17:31)
[2022-04-13] MEDS: Famotidine 20 MG TAB PO (07:59)
[2022-04-13] MEDS: Pregabalin 50 MG CAP 150 MG PO ×2 (08:02→20:53)
[2022-04-13] MEDS: Amitriptyline 50 MG TAB 100 MG PO (08:14)
[2022-04-13] MEDS: Calcium Citrate 950 MG TAB PO (08:14)
[2022-04-13] MEDS: Enalapril 5 MG TAB 30 MG PO (08:15)
[2022-04-13] MEDS: Docusate Sodium 100 MG/10 ML CUP PO (08:15)
[2022-04-13] MEDS: Cholecalciferol (Vitamin D3) 400 UNIT TAB PO ×3 (08:15→20:35)
[2022-04-13] MEDS: Magnesium Lactate-SR 84 MG TABCR PO ×2 (08:16→20:34)
[2022-04-13] MEDS: LORazepam 1 MG TAB PO ×2 (08:16→20:34)
[2022-04-13] MEDS: Insulin Asp Prt/Insulin Aspart 70/30 Mix 300 UNITS/3 ML PEN SC ×3 (08:17→17:30)
[2022-04-13 08:20] LABS: Anion Gap 10.3 mmol/L (3-11); BUN 43 mg/dL (7-18); CO2 25.7 mmol/L (21.0-32.0); CREATININE 2.4 mg/dL (0.55-1.02); Calcium 9.2 mg/dL (8.5-10.1); Chloride 95 mmol/L (98-107); Glucose 250 mg/dL (74-106); Magnesium 2.2 mg/dL (1.8-2.4); Potassium 4.5 mmol/L (3.5-5.1); Sodium 131 mmol/L (136-145)
--- NOTE | 2022-04-13 08:49 | W.EDPROG ---
Date of service: 04/13/22 Time of Service: 08:00 Medical Decision Making 0800 -- please see previous providers notes for initial presentation, exam, plan and course. Patient is no longer voluntary and under EE status. She has been hyperglycemic while in the emergency department. Repeat labs were ordered morning and there is significant increase in creatinine to 2.4. Glucose 397 yesterday. Glucose is 250 this morning with normal bicarb and anion gap. Patient admits to some headache but otherwise denies any nausea, abdominal pain or vomiting. Will place an IV, give bolus IVF, obtain VBG and repeat urinalysis and obtain medicine consult. 0900 -- Case discussed with Dr. Cespedes - hospitalist service will consult. 1400 -- VBG within normal limits. Urinalysis negative for ketones and notes 10-20 WBCs with moderate leukocyte esterase but many epithelial cells and likely appears contaminated. She denies any urinary symptoms. Case d/w Jody from [facility] - likely no transfer today. Tessy WAREHOUSE LOGISTICS COORDINATOR with [facility] is recommending starting an antipsychotic if no transfer in 12-24 hours. Will start zyprexa PO. 1800 --repeat BMP notes slight worsening of IRIS. Discussed with hospitalist service and they plan on giving additional IV fluids and plan for renal ultrasound in the morning. 1999 --due to worsening IRIS, I discussed with hospitalist service for admission to the floor for further evaluation. She is on an MICHELLE inhibitor and metformin so this may be contributing. Medical Records Medical records reviewed: Yes I reviewed the patient's medical records. Sign Out Sign Out Data: Sign Out Comment: pending [facility] consultation medically cleared Last updated by Christina Bryson PA at 04/10/22 15:55 Sign Out Comment: Patient pending voluntary admission. Patient has been calm and cooperative. She did request lorazepam for increased anxiety but otherwise has not needed any acute meds and has not had any episodes of escalation. Last updated by Elie Hopkins NP at 04/10/22 22:58 Sign Out Comment: No events overnight. Medically cleared. Voluntary. Awaiting placement. Last updated by Katelynn Gan DO at 04/11/22 07:40 Sign Out Comment: Patient here voluntarily awaiting psychiatric treatment placement. Plan in the morning is to confirm that fentanyl patch prescription and provide if prescribed. Last updated by Daniel Cesar MD at 04/11/22 20:14 Sign Out Comment: voluntary for psychiatric placement depression/si Last updated by Dru Randall MD at 04/12/22 02:53 Sign Out Comment: Patient signed out to Dr. Willett at time of shift change with inpatient placement, , April 13 a.m. labs pending. Status is now INVOLUNTARY. Last updated by Raeann Cesar MD at 04/12/22 16:34 Sign Out Comment: SI, EE, second cert complete; awaiting placement Last updated by Franklyn Willett MD at 04/12/22 22:46 Sign Out Comment: involuntary for si/depression, awaiting placement Last updated by Dru Randall MD at 04/12/22 23:03 Sign Out Comment: EE. Awaiting placement. Medical service on consult for hyperglycemia and IRIS. Consider admission to the floor as IRIS is slightly worsening. Last updated by Katelynn Gan DO at 04/13/22 20:20 Discharge Plan Disposition Patient Disposition: [facility] INPATIENT Discharge Details Clinical Impression: Suicidal ideations, Depression, Hyperglycemia, Acute kidney injury Primary Care Provider: Joellen Molina ED Provider: Katelynn Gan Home Meds and New Rx's Prescriptions: Continued amitriptyline 100 mg tablet 100 mg PO DAILY lorazepam 1 mg tablet 1 mg PO BID MEDICAL MARIJUANA Inhalation DAILY insulin asp prt-insulin aspart [Novolog Mix 70-30FlexPen U-100] 100 UNIT/1 ML insulin pen 50 unit Sub-Q AC magnesium L-lactate [Magtab] 84 mg tablet extended release 84 mg PO DAILY levothyroxine 150 mcg capsule 150 mcg PO DAILY enalapril maleate 20 mg tablet 30 mg PO DAILY albuterol sulfate [Ventolin HFA] 90 mcg/actuation HFA aerosol inhaler 2 puff inhalation Q6H PRN cholecalciferol (vitamin D3) 10 mcg (400 unit) tablet 400 unit PO TID docusate sodium [Colace] 100 mg capsule 100 mg PO DAILY tiotropium bromide 18 mcg capsule, w/inhalation device 1 cap inhalation DAILY Rx Instructions: puncture 1 cap using device; one dose = 2 inhalations omeprazole 40 mg capsule,delayed release(DR/EC) 40 mg PO DAILY pregabalin 150 mg capsule 150 mg PO BID nicotine [Nicoderm CQ] 14 mg/24 hr patch 24 hour 1 patch transdermal DAILY famotidine [Acid Program/Music Director (famotidine)] 20 mg tablet 20 mg PO DAILY calcium citrate 200 mg (950 mg) tablet 200 mg PO TID simvastatin 40 MG tablet 40 mg PO HS pramipexole [Mirapex] 0.5 MG tablet 0.5 mg PO HS metformin [Glucophage] 1,000 MG tablet 1,000 mg PO BID Bydureon 2 MG/0.65 ML pen injector 2 mg SQ .QMONDAY Levemir FlexTouch U-100 Insuln 300 UNITS/3 ML insulin pen 55 units Sub-Q HS Rx Instructions: 09/23/15 Now 55 Units PM. [facility] albuterol sulfate [Ventolin HFA] 90 mcg/actuation HFA aerosol inhaler 2 puff INHALATION PRN PRN Rexulti 1 mg tablet 1 mg PO DAILY Bydureon BCise 2 mg/0.85 mL auto-injector 2 mg SUBCUT QWEEK Rx Instructions: 1x/week on mondays Levemir U-100 Insulin 100 unit/mL solution 20 - 25 ml SUBCUT BID Label Comments: Inject subcutaneously twice a day Injects 20 to 25 units subcutaneously in the morning and at night also depends on the reader fentanyl 37.5 mcg/hour patch 72 hour 37.5 patch transdermal Q3D enalapril maleate 10 mg tablet 1 tab DAILY lidocaine 5 % cream 1 applic DAILY Label Comments: APPLY A SMALL AMOUNT TO ONLY THE SKIN ON THE BOTTOM OF YOUR FEET enalapril maleate 20 mg tablet 20 mg DAILY amitriptyline 100 mg tablet 100 mg DAILY magnesium L-lactate [Magtab] 84 mg tablet extended release 84 mg PO BID Bydureon BCise 2 mg/0.85 mL auto-injector 2 mg SUBCUT QWEEK
[2022-04-13 09:26] LABS: BE (Venous) 1 mmol/L (-2-3); HCO3 (Venous) 26 mmol/L (23-28); O2 Sat (Venous) 81 %; TCO2 (Venous) 24 mmol/L (24-29); pCO2 (Venous) 47 mmHg (41-51); pH (Venous) 7.35 (7.31-7.41); pO2 (Venous) 49 mmHg
[2022-04-13] MEDS: Normal Saline 250 ML 500 ML IV (09:30)
[2022-04-13 09:34] LABS: Bilirubin Small (Negative); Blood Trace-intact (Negative); Clarity Sl Cloudy (Clear); Glucose Negative (Negative); Ketones Negative (Negative); Leukocyte Esterase Moderate (Negative); Nitrite Negative (Negative); Specific Gravity >= 1.030 (1.005-1.025); Urobilinogen 0.2 EU/dL (Up TO 0.2); pH 5.5 (5-8)
[2022-04-13 09:41] LABS: Bacteria Many HPF (Negative); C & S Indicated? No/Sq. Contamination; Casts Negative LPF (Negative); Crystals Negative HPF (Negative); Epithelial Cells Many HPF (Negative); Mucus Trace (Negative); RBC 0-2 HPF (0-2)
[2022-04-13] MEDS: Acetaminophen 500 MG TAB 1000 MG PO (10:22)
[2022-04-13] MEDS: OLANZapine 10 MG TAB PO (14:14)
[2022-04-13 14:28] LABS: Anion Gap 11.3 mmol/L (3-11); BUN 49 mg/dL (7-18); CO2 26.7 mmol/L (21.0-32.0); CREATININE 2.5 mg/dL (0.55-1.02); Calcium 8.9 mg/dL (8.5-10.1); Chloride 94 mmol/L (98-107); Estimated GFR 20.18 (mL/min/1.73m2); Glucose 286 mg/dL (74-106); Potassium 4.2 mmol/L (3.5-5.1); Sodium 132 mmol/L (136-145)
--- NOTE | 2022-04-13 15:33 | CMSP_ITS ---
- If Service Date Differs Date of service: 04/13/22 Time of Service: 15:33 Care Management Safety Plan Status: Involuntary - Reason for Wait Reason for Wait: Inpatient Admission Safety plan has been established to meet the needs of the patient, and consideration of the care team, to adhere to patient goals, identify restrictions based on behavioral status, address nutrition, and determine allowed personal belongings, tools for hygiene and personal care. Determine level of activity including ambulation, level of supervision, visitors, and determine privileges based on behaviors and level of engagement by pt. SAFETY PLAN: 1. Will remain on SI/HI precautions. In Paper Clothes 2. Will remain in room under direct supervision of one-on-one staff at all times provided by CPSO, TOOL AND MACHINE MAINTAINER, OVERHEAD CRANE TECHNICIAN senior functional analyst. 3. May have paper cups, plates, finger foods as well as a cardboard spoon to eat meals. 4. Follow [facility] Management of the Admitted Behavioral Health Patient policy. 5. Shower permitted with escort at RN discretion. 6. No personal belongings - soft items permitted at RN discretion. 7. Visitors: None at this time. 8. Activities: Soft cart items, music tablet, television and other activities at RN discretion. 9. Bathroom privileges with escort in the ED, available in room without limitation on M/S. 10. Phone: May use [employer] phone at RN discretion. 11. Due to INVOLUNTARY status, patient is being held at [facility] by the Department of Mental Health ([facility]) until 2nd certification by [facility] Psychiatrist can be performed (within 24 hours). Staff will provide de-escalation support (CPI) as needed. If patient wishes to leave [facility], staff will contact [facility] Crisis Screener ([phone]) and On-Call Video Intern ([phone]) as soon as possible. In the event of elopement, notify [place] [employer] ([phone]). Patient is currently involuntarily at [facility]. [facility] Frontline Print Production Associate will continue seeking placement. Please contact the Radiology Tech Video Intern ([phone]) for any needed changes to Safety Plan. Safety plan has been provided to interdepartmental care team. Patient will be transported by [employer] at time of discharge.
--- NOTE | 2022-04-13 17:36 | PDOC.ERCMPRO ---
- If Service Date Differs Date of service: 04/13/22 Time of Service: 17:36 Care Management Progress Note S/O: Tessy informed ED staff yesterday that she wished to leave instead of seeking voluntary placement. She was placed on EE status after re-evaluation by [facility] crisis screener. A second certification was completed last evening which upheld the EE. Per staff report, she has been cooperative today although teary at times. A: 71 year old female presenting to [facility] ED with hx of depression, BPD and SI. P: Tessy is now on EE status, awaiting involuntary placement in a psychiatric facility. [facility] has declined Tessy as her medical needs cannot be met at their facility. [facility] and [facility] are only accepting patients from their own facility.
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
[2022-04-13] MEDS: Pramipexole 0.5 MG TAB PO (20:35)
[2022-04-13] MEDS: Simvastatin 40 MG TAB PO (20:36)
[2022-04-13] MEDS: Insulin Aspart 300 UNITS/3 ML PEN SC (20:46)
[2022-04-13 20:59] LABS: Source Nasal/Nares
[2022-04-13] MEDS: Normal Saline 1,000 ML 1000 ML IV (21:28)
[2022-04-13 21:30] LABS: COVID-19 PCR Negative (Negative)
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
[2022-04-14] VITALS (8 sets, daily range): BP systolic 89–132; BP diastolic 56–70; PULSE 66–101; RESP 16–17; TEMP 35.4–37.2; O2SAT 81–95
--- NOTE | 2022-04-14 03:47 | NUR.NOTE ---
Nursing Note: At 0320 Vital signs taken Pts O2 81% on RA. Pt was able to cough and clear lungs, climbed to 95% on RA. O2 tubing set in place at this time. Charge nurse notified.
[2022-04-14 03:58] LABS: Bilirubin Negative (Negative); Blood Negative (Negative); Clarity Clear (Clear); Glucose Negative (Negative); Ketones Negative (Negative); Leukocyte Esterase Negative (Negative); Nitrite Negative (Negative); Specific Gravity 1.015 (1.005-1.025); Urobilinogen 0.2 EU/dL (Up TO 0.2); pH 5.5 (5-8)
[2022-04-14] MEDS: Levothyroxine 150 MCG TAB PO (06:03)
[2022-04-14 06:40] LABS: Abs Immature Grans 0.06 10^3/uL (0.0-0.06); Absolute Basophil Count 0.11 10^3/uL (0.0-0.2); Absolute Eosinophil Count 0.24 10^3/uL (0.0-0.7); Absolute Lymphocyte Count 2.93 10^3/uL (1.2-3.4); Absolute Neutrophil Count 7.83 10^3/uL (1.2-6.7); Basophils % 0.9; HCT 32.6 % (36.0-46.0); HGB 10.2 g/dL (11.2-15.7); Immature Grans % 0.5; Lymphocytes % 24.1; MCH 25.2 pg (27.0-33.0); MCHC 31.3 % (32.0-36.0); MCV 81 fL (80-95); Monocytes % 8.2; Neutrophils % 64.3; Platelet Count 363 10^3/uL (130-400); RBC 4.05 10^6/uL (3.93-5.22); RDW 15.9 % (11.7-14.6); RDW-SD 46.2 fL; WBC 12.17 10^3/uL (4.4-10.8)
[2022-04-14 06:53] LABS: Anion Gap 12.3 mmol/L (3-11); BUN 50 mg/dL (7-18); CO2 22.7 mmol/L (21.0-32.0); Calcium 8.9 mg/dL (8.5-10.1); Chloride 100 mmol/L (98-107); Estimated GFR 26.38 (mL/min/1.73m2); Glucose 159 mg/dL (74-106); Magnesium 2.4 mg/dL (1.8-2.4); Potassium 4.3 mmol/L (3.5-5.1); Sodium 135 mmol/L (136-145)
--- NOTE | 2022-04-14 08:00 | DI.US_ITS ---
Exam(s) US RENAL EXAM: US RENAL CLINICAL HISTORY: azotemia TECHNIQUE: Ultrasound of both kidneys performed using standard protocol. COMPARISON: CT ABD PELVIS WITH CONTRAST from 02/14/2017 US US ABDOMEN from 08/26/2021 FINDINGS: RIGHT KIDNEY: Measures 10 cm in length. No cysts evident. Normal cortical thickness and corticomedullary differenti ation .No solid masses No intrarenal calculi nor hydronephrosis. LEFT KIDNEY: Measures 11 cm in length. No cysts evident. Normal cortical thickness and corticomedullary different iaion. No solids masses. No intrarenal calculi nor hydonephrosis. URINARY BLADDER: Prevoid volume is 339 cc Postvoid volume is 0 cc Bladder and 2s completely. Bladder wall appears somewhat trabeculated and irregular on these images. Ureterovesical jets: Both were not identified. IMPRESSION: 1. No significant ultrasound findings in the kidneys. No hydronephrosis. 2. Cannot exclude bladder wall masses on this study. Recommend that this patient return at no addit ional charge with a full bladder for more accurate assessment of the bladder wall. DATA REPOSITORY:
--- NOTE | 2022-04-14 08:23 | NUR.NOTE ---
This underwriter solicitation director escorted patient down to ultrasound. Left at 0755. Got back to unit at 0820 Nursing Note:
[2022-04-14] MEDS: Enalapril 5 MG TAB 30 MG PO (08:55)
[2022-04-14] MEDS: Omeprazole 20 MG CAPCR 40 MG PO (08:56)
[2022-04-14] MEDS: Pregabalin 50 MG CAP 150 MG PO ×2 (08:56→19:49)
[2022-04-14] MEDS: Cholecalciferol (Vitamin D3) 400 UNIT TAB PO ×2 (08:56→19:49)
[2022-04-14] MEDS: Famotidine 20 MG TAB PO (08:56)
[2022-04-14] MEDS: LORazepam 1 MG TAB PO ×2 (08:57→19:48)
[2022-04-14] MEDS: Calcium Citrate 950 MG TAB PO (08:57)
[2022-04-14] MEDS: Amitriptyline 50 MG TAB 100 MG PO (08:57)
[2022-04-14] MEDS: Nicotine 14 MG/24 HR PATCH TD (08:57)
[2022-04-14] MEDS: OLANZapine 10 MG TAB PO (08:57)
[2022-04-14] MEDS: Magnesium Lactate-SR 84 MG TABCR PO ×2 (08:57→19:50)
[2022-04-14] MEDS: Insulin Aspart 300 UNITS/3 ML PEN SC ×4 (09:11→21:21)
--- NOTE | 2022-04-14 09:11 | NUR.NOTE ---
Nursing Note:[facility] telepharmacy notified of consult, pharmacy returned my phone call and is now speaking with patient.
--- NOTE | 2022-04-14 09:32 | TELEP.MEDR_ITS ---
Date of service: 04/14/22 Time of Service: 09:33 Telepharmacy Home Med Rec Allergies Allergies: prochlorperazine edisylate [From Compazine] Allergy (Severe, Verified 03/20/22 13:36) Anaphylaxsis prochlorperazine maleate [From Compazine] Allergy (Severe, Verified 03/20/22 13:36) Anaphylaxsis codeine Adverse Reaction (Intermediate, Verified 03/20/22 13:36) stomach in knot, and back pains naproxen sodium [From Aleve] Adverse Reaction (Intermediate, Verified 03/20/22 13:36) light headed, vomit Penicillins Adverse Reaction (Verified 03/20/22 13:36) Interview Person Interviewed: * Patient * Pharmacist @ [facility] Quality Quality of Interview/Accuracy of Medication List: Fair Sources Sources used to compile medication list: [facility] Medication List, [facility] ([facility]) and [facility] Changes made to Home Medication List: ADDITIONS: * none DELETIONS: * Docusate * Calcium * Tiotropium CHANGES: * Vit D3 400units PO BID * Lorazepam 1mg PO BID PRN * Pramipexole 0.75mg PO qHS * Enalapril 30mg PO daily Additional Notes Additional Notes: * Levemir has not been filled at [facility] since November 2021, Novolog has not been filled at [facility] since July 2021. Patient reports she is still taking insulin and that [facility] is the only pharmacy she uses. Based on last fills, I don't believe she has been compliant. On the home med list, these are marked as unknown for last taken and the doses she reports are in the Rx comments Recommended Changes Recommended Changes(reason for recommendation): * If insulin is ordered, start low and titrate up until her insulin needs are determined Attestation: The home medication list is now updated to the best of my knowledge and is ready to be reconciled by the provider. [facility]ist at for any questions.
[2022-04-14] MEDS: DOXYCYCLINE 100 MG in Normal Saline 100 ML IVPB (11:35)
[2022-04-14] MEDS: Normal Saline Flush 10 ML SYR IVP (11:36)
[2022-04-14] MEDS: Normal Saline 500 ML 30 ML IV (11:36)
--- NOTE | 2022-04-14 13:32 | CMSP_ITS ---
- If Service Date Differs Date of service: 04/14/22 Time of Service: 13:32 Care Management Safety Plan Status: Involuntary - Reason for Wait Reason for Wait: Inpatient Admission Safety plan has been established to meet the needs of the patient, and consideration of the care team, to adhere to patient goals, identify restrictions based on behavioral status, address nutrition, and determine allowed personal belongings, tools for hygiene and personal care. Determine level of activity including ambulation, level of supervision, visitors, and determine privileges based on behaviors and level of engagement by pt. SAFETY PLAN: 1. Will remain on SI/HI precautions. In Paper Clothes 2. Will remain in room under direct supervision of one-on-one staff at all times provided by [employer]; GONZALO, TUBING DRIER telecommunications linesworker. 3. May have paper cups, plates, finger foods as well as a cardboard spoon 4. Follow [facility] Management of the Admitted Behavioral Health Patient policy. 5. Comfort bath system or may shower with supervision at nursing discretion. 6. No personal belongings 7. Visitors: none at this time 8. Activities: may have soft items from activity cart 9. Bathroom privileges in room. 10. Phone: None at this time 11. Due to INVOLUNTARY status, patient is being held at [facility] by the Department of Mental Health ([facility]) until 2nd certification by [facility] Psychiatrist can be performed (within 24 hours). Staff will provide de-escalation support (CPI) as needed. If patient wishes to leave [facility], staff will contact [facility] Crisis Screener ([phone]) and On-Call Printing Estimator ([phone]) as soon as possible. In t he event of elopement, notify [facility] Police ([phone]). Patient is currently involuntarily at [facility]. [facility] Frontline Supply Service Worker will continue seeking placement. Please contact the Temperature Control Inspector Printing Estimator ([phone]) for any needed changes to Safety Plan. Safety plan has been provided to interdepartmental care team. Patient will be transported by [employer] at time of discharge.
--- NOTE | 2022-04-14 13:32 | PDOC.CMSAFE ---
- If Service Date Differs Date of service: 04/14/22 Time of Service: 13:32 Care Management Safety Plan Status: Involuntary - Reason for Wait Reason for Wait: Inpatient Admission Safety plan has been established to meet the needs of the patient, and consideration of the care team, to adhere to patient goals, identify restrictions based on behavioral status, address nutrition, and determine allowed personal belongings, tools for hygiene and personal care. Determine level of activity including ambulation, level of supervision, visitors, and determine privileges based on behaviors and level of engagement by pt. SAFETY PLAN: 1. Will remain on SI/HI precautions. In Paper Clothes 2. Will remain in room under direct supervision of one-on-one staff at all times provided by [employer]; GONZALO, STEAMER BLOCKER laminator printed circuit boards. 3. May have paper cups, plates, finger foods as well as a cardboard spoon 4. Follow [facility] Management of the Admitted Behavioral Health Patient policy. 5. Comfort bath system or may shower with supervision at nursing discretion. 6. No personal belongings 7. Visitors: none at this time 8. Activities: may have soft items from activity cart 9. Bathroom privileges in room. 10. Phone: None at this time 11. Due to INVOLUNTARY status, patient is being held at [facility] by the Department of Mental Health ([facility]) until 2nd certification by [facility] Psychiatrist can be performed (within 24 hours). Staff will provide de-escalation support (CPI) as needed. If patient wishes to leave [facility], staff will contact [facility] Crisis Screener ([phone]) and On-Call Provider Contracting Consultant ([phone]) as soon as possible. In the event of elopement, notify [facility] Police ([phone]). Patient is currently involuntarily at [facility]. [facility] Frontline Manager Process Excellence will continue seeking placement. Please contact the [employer] Provider Contracting Consultant ([phone]) for any needed changes to Safety Plan. Safety plan has been provided to interdepartmental care team. Patient will be transported by [employer] at time of discharge.
--- NOTE | 2022-04-14 13:42 | CMPROGNOTE_ITS ---
- If Service Date Differs Date of service: 04/14/22 Time of Service: 13:42 Care Management Progress Note S/O: Tessy informed staff this morning that she wished to leave instead of seeking psychiatric placement. She was placed on EE status after re-evaluation by [facility] crisis screener yesterday. Theresa Sin spoke with her via phone and Tessy agreed to stay. This afternoon Tessy was medically cleared by provider and was screened by Theresa [facility] crisis screener. Tessy has been cooperative today b ut continues to be weepy and expresses concerns about her fish at home. A: 71 year old female presenting to [facility] ED with hx of depression, BPD and SI. P: Tessy is now on EE status, awaiting involuntary placement in a psychiatric facility. [facility] as her medical needs cannot be met at their facility. [place] and [facility] are only accepting patients from their own facility. cc:
--- NOTE | 2022-04-14 13:42 | PDOC.CMPRO ---
- If Service Date Differs Date of service: 04/14/22 Time of Service: 13:42 Care Management Progress Note S/O: Tessy informed staff this morning that she wished to leave instead of seeking psychiatric placement. She was placed on EE status after re-evaluation by [facility] crisis screener yesterday. Theresa Sin spoke with her via phone and Tessy agreed to stay. This afternoon Tessy was medically cleared by provider and was screened by Theresa [facility] crisis screener. Tessy has been cooperative today but continues to be weepy and expresses concerns about her fish at home. A: 71 year old female presenting to [facility] ED with hx of depression, BPD and SI. P: Tessy is now on EE status, awaiting involuntary placement in a psychiatric facility. [facility] as her medical needs cannot be met at their facility. [place] and [facility] are only accepting patients from their own facility. cc:
--- NOTE | 2022-04-14 15:25 | NUR.NOTE ---
Patient has complaints of 7/10 leg pain and is requesting something to ease it. RN notified. Nursing Note:
--- NOTE | 2022-04-14 15:48 | PGE_ITS ---
Date of Service Date of service: 04/14/22 Time of Service: 15:48 Assessment and Plan Assessment and plan (1) Acute kidney injury: Status: Acute Assessment and plan: This patient normal renal function upon presentation here. Her kidney functions gotten worse in the last 3 days which I suspect is probably due to the contrast that she received for her CTA of the head. She received intravenous fluids this evening and her kidney function will be rechecked in the morning. A renal ultrasound will be done. I have requested a postvoid residual bladder scan to make sure she is not having acute urinary retention. (2) Suicidal ideations: Status: Acute Assessment and plan: She is on an emergency hold here for her severe depression and suicidal ideation. She is not medically stable to be transferred at this time to the psychiatric facility until her renal function stabilizes. She will be placed on suicide precautions. (3) Hyperglycemia: Status: Acute Assessment and plan: She has severe diabetes mellitus. Blood sugars will be monitored and insulin adjusted as needed for her blood sugar control. (4) Bronchitis: Status: Acute Assessment and plan: was started on doxycycline, will complete [address] Cespedes. Exam Const General: cooperative and no acute distress Nutritional Appearance: obese HENMT Head: normal to inspection Eyes General: appearance normal, both eyes and all related structures Sclera: sclerae normal Neck Neck: normal visual inspection and no lymphadenopathy Resp Effort & Inspection: normal respiratory effort Cardio Rate: regular rate GI Palpation: soft, no hepatosplenomegaly, not firm and nontender Neuro General: patient awake and not oriented x3 Extrem General: no edema Objective Last Vital Signs Temp 35.4 C L 04/14/22 07:12 Pulse 80 04/14/22 15:12 Resp 17 04/14/22 07:12 BP 121/69 04/14/22 07:12 Pulse Ox 92 04/14/22 07:12 Laboratory Results - last 24 hr 04/13/22 04/14/22 04/14/22 20:52 03:40 05:55 WBC RBC Hgb Hct MCV MCH MCHC RDW Plt Count MPV Immature Gran % Neutrophils % Lymphocytes % Monocytes % Eosinophils % Basophils % Nucleated RBC % Absolute Neutrophils Absolute Lymphocytes Absolute Monocytes Absolute Eosinophils Absolute Basophils Sodium 135 L Potassium 4.3 Chloride 100 Carbon Dioxide 22.7 Anion Gap 12.3 H BUN 50 H Creatinine 2.0 H Est GFR (CKD-EPI 2020) 26.38 Glucose 159 H Calcium 8.9 Magnesium 2.4 Urine Color Yellow Urine Clarity Clear Urine pH 5.5 Ur Specific [place] 1.015 Urine Protein Negative Urine Ketones Negative Urine Blood Negative Urine Nitrite Negative Urine Bilirubin Negative Urine Urobilinogen 0.2 Ur Leukocyte Esterase Negative Urine Glucose Negative COVID-19 Source Nasal/Nares SARS-CoV-2 (PCR) Negative 04/14/22 05:55 WBC 12.17 H RBC 4.05 Hgb 10.2 L Hct 32.6 L MCV 81 MCH 25.2 L MCHC 31.3 L RDW 15.9 H Plt Count 363 MPV 10.0 Immature Gran % 0.5 Neutrophils % 64.3 Lymphocytes % 24.1 Monocytes % 8.2 Eosinophils % 2.0 Basophils % 0.9 Nucleated RBC % 0.0 Absolute Neutrophils 7.83 H Absolute Lymphocytes 2.93 Absolute Monocytes 1.00 H Absolute Eosinophils 0.24 Absolute Basophils 0.11 Sodium Potassium Chloride Carbon Dioxide Anion Gap BUN Creatinine Est GFR (CKD-EPI 2020) Glucose Calcium Magnesium Urine Color Urine Clarity Urine pH Ur Specific [place] Urine Protein Urine Ketones Urine Blood Urine Nitrite Urine Bilirubin Urine Urobilinogen Ur Leukocyte Esterase Urine Glucose COVID-19 Source SARS-CoV-2 (PCR)
[2022-04-14] MEDS: Simvastatin 40 MG TAB PO (19:49)
[2022-04-14] MEDS: Doxycycline Hyclate 100 MG CAP PO (19:50)
--- NOTE | 2022-04-14 19:56 | NUR.NOTE ---
At 1915 Patient was speaking to this contract writer stating she wants to leave. This contract writer explained to her that she will need to wait until Care Management sees her in the morning to speak with them about her wishes to leave. This contract writer reminded her she is here in our care to get better. This contract writer tried to redirect her to try and find something good to watch on tv.
--- NOTE | 2022-04-14 20:01 | NUR.NOTE ---
At 1945 Patient got up to speak with me about wanting to know who was the one involved when she got here and gave us her patient belongings. This publicity writer stated she came to the Emergency Department which collects her patient belongings once she becomes a patient here.
--- NOTE | 2022-04-14 21:05 | NUR.NOTE ---
At 2100, Nurse rechecked patient's blood sugar after the nurse transplant zofia patient's blood. Patient was asked if she knows where she is and if she sees ghosts at home. Patient became argumentive with nurse as to why she was asking her these questions. RN redirected patient to go back to her room. Patient told nurse not to touch her as she walked back to her room. RN offered to put side rail up for patient. Patient stated what are you trying to duncan out of here. Nurse left room.
[2022-04-14 21:11] LABS: Glucose 421 mg/dL (74-106)
[2022-04-14] MEDS: Pramipexole 0.25 MG TAB 0.75 MG PO (21:23)
--- NOTE | 2022-04-14 21:51 | NUR.NOTE ---
Patient keeps being directed to avoid going in other patient rooms on the transition unit and to avoid touching the double doors otherwise the alarm with go off. Patient is worried about her cat being left in her car and her cat being taken care of. This content writer asked if she has anyone nearby to check on her cat for her. Patient stated she has an aunt that lives in [place] that may be able to check on her cat. RN notified.
--- NOTE | 2022-04-14 22:33 | PDOC.MHPN2 ---
Date of service: 04/14/22 Time of Service: 14:22 Mental Health Emergency Note Release [facility] release signed:: Yes Reason for Visit Client presented to [facility] ED on 04/10/[address] [facility] police after stating to police that she wanted to end her life via suicide. Client was assessed by [facility] JENNIFER Tavares and was seeking voluntary inpatient treatment. On 04.12.2022 the client wanted to leave the hospital and JENNIFER Tavares completed an EE after she was unable and unwilling to do a safety plan with JENNIFER Tavares and Director Paras. Per JENNIFER Farrar's report this morning client became medical last night as her kreatine levels increased and was moved to med-surge. Per report from [facility] youth care professional Vianeyhyacinth Burnett client is now medically cleared. Client is currently on EE status and this senior underwriter completes clients daily assessment via zoom. In the last 2 weeks has the pt presented for ES prior to today?: No Client Information Client is: Adult Outpatient Well Housed: Yes Current Treatment Team if applicable First care steam turbine operator: Name: Renu Roman ([facility]) Role: Medication provider Contact Info: [phone] Non Suicidal Self Injury Current: No History: No Safety Risk/Harm to Self or Others Current Ideation to Harm Self or Others: Yes to self. (Client currently endorsing fleeting SI, rating intnet 3/10 and plan to intentionally overdose on her insulin or slit her wrist. ) Intent: yes, has intent. Plan: yes,has a plan. History of suicide attempt: No history of suicide attempt reported Risk: Does risk to harm exist?: yes. Risk: High Risk Duty to warn indicated: No Asssessment/Mental Status Appearance: Unremarkable Attitude: Cooperative Behavior: Unremarkable Speech: Soft and Slow Affect: Flat and Cogruent with mood Mood: Sad, Stressed and Depressed Thought process: Poverty of content (Disorganized thinking) Hallucinations: No Delusions: No Attention: Unremarkable Perception: Not impaired Orientation: Fully orientated Memory: Impaired in: Recent Insight: Fair Judgement: Fair Neurovegetative Symptoms Sleep: Increase (Client reports she slept well last night only waking up one time. ) Appetitie: Increase ( Client reports that her appetite has improved.) Interests: Decrease Energy: Decrease Libido: Not applicable Substance Use: Do you use nicotine?: No Have you used substances in the last 7 days?: No Additional Issues: Assaultive/Threatening Behavior: No Medical Concerns: Yes Client engaged in active self harm w/weapon: No Threatening to run away: Yes Child reported abuse/neglect: No Voluntarily presenting for services: No Domestic violence is a concern: No Extreme Psychosis or extreme behavior is present: No Impression Client is a 71 year old, single, female who lives independently in [facility]. She is a long standing client of [facility]' outpatient services and has a more recent record of no shows for her appointments. Client presents with symptoms most congruent with major depressive disorder as evidenced by self-report that she is tearful throughout the day and has had lost of interest in things that used to bring her sumit. Client reports that she has minimal natural supports as only one of her sisters talks to her currently and she is unable to identify any friends. Client is continuing to report that she is endorsing suicidal ideation with intent and plan. Client has history of inpatient treatment for her mental health in addition to a hx of SI an suicidal attempts which put her at higher risk. Client reports that she feels hopeless and unsafe. Plan/Disposition Recommended Disposition: Hospitalization (Referrals have been faxed to [facility], [facility], , and [facility]. ) facilities contacted. Plan: Client will remain at [facility] on EE status pending admission to an inpatient facility. Client will be re-assessed by [facility] ES daily until placement is secured or clients acuity level decreases and she is able to be safety planned back to the community. Client will continue outpatient services upon discharge from treatment although providers may change. Due to the client's decompensation in mental janeth and poor insight she will continue to remain on EE status at this time.? ? Person reported agreement to plan: No Facilities contacted if Applicable [facility] Not accepted, Medical reasons [facility] Not accepted, No bed available [facility] Not accepted, Only accepting in house referrals, [facility] Not accepted, Medical reasons Reports/communication Outcome discussed with: Other (Verbal passover given to [facility] manager sharepoint Vianey Burnett) Final Disposition/Discharge Transportation Checklist completed and faxed: No
[2022-04-15 07:37] VITALS: BP 154/74; PULSE 87; TEMP 36.5; O2SAT 95
[2022-04-15] MEDS: Levothyroxine 150 MCG TAB PO (08:18)
[2022-04-15] MEDS: Omeprazole 20 MG CAPCR 40 MG PO (08:18)
[2022-04-15] MEDS: Insulin Aspart 300 UNITS/3 ML PEN SC ×6 (08:19→22:39)
[2022-04-15] MEDS: Doxycycline Hyclate 100 MG CAP PO ×2 (08:19→20:53)
[2022-04-15] MEDS: Cholecalciferol (Vitamin D3) 400 UNIT TAB PO ×2 (08:19→20:51)
[2022-04-15] MEDS: Amitriptyline 50 MG TAB 100 MG PO (08:19)
[2022-04-15] MEDS: Enalapril 5 MG TAB 30 MG PO (08:20)
[2022-04-15] MEDS: LORazepam 1 MG TAB PO ×3 (08:20→20:52)
[2022-04-15] MEDS: Magnesium Lactate-SR 84 MG TABCR PO ×2 (08:20→20:52)
[2022-04-15] MEDS: Famotidine 20 MG TAB PO (08:20)
[2022-04-15] MEDS: Nicotine 21 MG/24 HR PATCH TD (08:20)
[2022-04-15] MEDS: Pregabalin 50 MG CAP 150 MG PO ×2 (08:21→20:52)
[2022-04-15] MEDS: OLANZapine 10 MG TAB PO (08:21)
[2022-04-15] MEDS: fentaNYL 25 MCG PATCH TD (10:28)
[2022-04-15] MEDS: fentaNYL 12 MCG PATCH TD (10:28)
--- NOTE | 2022-04-15 16:00 | CMSP_ITS ---
- If Service Date Differs Date of service: 04/15/22 Time of Service: 16:00 Care Management Safety Plan Status: Involuntary - Reason for Wait Reason for Wait: Inpatient Admission Safety plan has been established to meet the needs of the patient, and consideration of the care team, to adhere to patient goals, identify restrictions based on behavioral status, address nutrition, and determine allowed personal belongings, tools for hygiene and personal care. Determine level of activity including ambulation, level of supervision, visitors, and determine privileges based on behaviors and level of engagement by pt. SAFETY PLAN: 1. Will remain on SI/HI precautions. In Paper Clothes 2. Will remain in room under direct supervision of one-on-one staff at all times provided by [employer], NURSING HOME ADMISSIONS DIRECTOR, PLASTER MAKER tobacco drying machine operator. 3. May have paper cups, plates, finger foods as well as a cardboard spoon to eat meals. 4. Follow [facility] Management of the Admitted Behavioral Health Patient policy. 5. May shower with supervision at nursing discretion. 6. No personal belongings. 7. Visitors: none at this time 8. Activities: may have soft items from activity cart, music tablet, television and other activities at RN discretion. 9. Bathroom privileges available in room without restrictions. 10. Phone: None at this time 11. Due to INVOLUNTARY status, patient is being held at [facility] by the Department of Mental Health ([facility]). A 2nd certification by [facility] Psychiatrist occurred on 04/12/22 and upheld the involutary status. Staff will provide de-escalation support (CPI) as needed. If patient wishes to leave [facility], staff will contact [facility] Crisis Screener ([phone]) and On-Call Manager Personal ([phone]) as soon as possible. In the event of elopement, notify [facility] Police ([phone]). Patient is currently involuntarily at [facility]. [facility] Frontline Time Clerk will continue seeking placement. Please contact the Chicken Buyer Manager Personal ([phone]) for any needed changes to Safety Plan. Safety plan has been provided to interdepartmental care team. Patient will be transported by [employer] at time of discharge.
--- NOTE | 2022-04-15 16:04 | CMPROGNOTE_ITS ---
- If Service Date Differs Date of service: 04/15/22 Time of Service: 16:04 Care Management Progress Note S/O: Tessy requested to go home again today. She is worried about her fish and her air plants but is unwilling to allow anyone else into her home to care for them in her absence. She does have family who live locally but she is reportedly estranged from them. Tessy is teary and slightly argumentative this morning, accusing staff of withholding her medication and asking repeatedly why people are holding her at the hospital. She does regain her composure and is able to relax after receiving Ativan. A: 71 year old female presenting to [facility] ED with hx of depression, BPD and SI. P: Tessy is now on EE status, awaiting involuntary placement in a psychiatric facility. [facility] has declined Tessy as her medical needs cannot be met at their facility. [place] and [facility] are only accepting patients from their own facility. Tessy will remain at [facility] on involuntary status and will be reassessed twice daily by [facility] until a placement can be secured for her. CM will continue to follow. - MH Services (Omit if N/A) Current MH Services: [facility] - Status Status: Involuntary - Reason for Wait Reason for Wait: Inpatient Admission
--- NOTE | 2022-04-15 17:38 | W.PM.PROGNOT ---
Date of Service Date of service: 04/15/22 Time of Service: 17:38 Assessment and Plan Assessment and plan (1) Acute kidney injury: Status: Acute Assessment and plan: improved with hydration avoid nephrotoxic drugs and renal dose as needed. (2) Suicidal ideations: Status: Acute Assessment and plan: She is on an emergency hold here for her severe depression and suicidal ideation. She is now medically stable and can be moved to transitional hold area (3) Hyperglycemia: Status: Acute Assessment and plan: She has severe diabetes mellitus. Blood sugars will be monitored and insulin adjusted as needed for her blood sugar control. (4) Bronchitis: Status: Acute Assessment and plan: was started on doxycycline, will complete [address] Matthews. Subjective Subjective Patient reports: tolerating liquids well, tolerating a regular diet and afebrile; denies shortness of breath Interval history since last seen: complaining of a headache today Exam Const General: cooperative and no acute distress Nutritional Appearance: obese HENMT Head: normal to inspection Eyes General: appearance normal, both eyes and all related structures Sclera: sclerae normal Neck Neck: normal visual inspection and no lymphadenopathy Resp Effort & Inspection: normal respiratory effort Cardio Rate: regular rate GI Palpation: soft, no hepatosplenomegaly, not firm and nontender Neuro General: patient awake and not oriented x3 Other: She cannot tell me the month or the president. Extrem General: no edema Objective Last Vital Signs Temp 36.5 C 04/15/22 07:37 Pulse 87 04/15/22 07:37 Resp 16 04/14/22 21:15 BP 154/74 H 04/15/22 07:37 Pulse Ox 95 04/15/22 07:37 Laboratory Results - last 24 hr 04/14/22 20:53 Glucose 421 H
[2022-04-15] MEDS: Simvastatin 40 MG TAB PO (20:53)
[2022-04-15] MEDS: Pramipexole 0.25 MG TAB 0.75 MG PO (22:40)
--- NOTE | 2022-04-16 | DI.RAD_ITS ---
Exam(s) XR ELBOW LT COMPLETE EXAM: XR ELBOW LT COMPLETE CLINICAL HISTORY: s/p fall. TECHNIQUE: 2D digital imaging was performed. COMPARISON: No exams were available for comparison FINDINGS: Four views: No evidence of obvious acute fracture or joint effusion. No swelling of the right common bursa. Sma ll osteophytic density noted off the lateral aspect of the joint which does not have the appearance o f an acute fracture fragment. Also small bony excrescence off of the lateral femoral condyle may rep resent evidence of chronic epicondylitis (but no fracture at this level). On the lateral view there is a 2.5 X 1 mm os ossific density seen in the joint space which is possibly off the tip of the carlo noid such as degenerative osteophyte or cannot exclude loose intra-articular body. IMPRESSION: Findings as above but doubtful for acute fractures and there is no elbow joint effusion. DATA REPOSITORY: RADIATION DOSE DELIVERED:
--- NOTE | 2022-04-16 | DI.RAD_ITS ---
Exam(s) XR HIP LT COMPLETE AP PELVIS EXAM: XR HIP LT COMPLETE AP PELVIS CLINICAL HISTORY: s/p fall. TECHNIQUE: 2D digital imaging was performed. COMPARISON: CR XR HIP RT COMPLETE AP PELVIS from 03/20/2022 FINDINGS: 3 views No evidence of pelvic nor hip fracture. Additional views of the left hip also reveal no fracture or joint space narrowing. No obvious degenerative changes. IMPRESSION: No fractures evident. DATA REPOSITORY: RADIATION DOSE DELIVERED:
[2022-04-16] MEDS: LORazepam 1 MG TAB PO ×3 (02:49→21:13)
[2022-04-16 06:55] VITALS: BP 160/90; PULSE 88; RESP 20; TEMP 36.6; O2SAT 100
[2022-04-16] MEDS: Levothyroxine 150 MCG TAB PO (07:23)
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
[2022-04-16 07:32] VITALS: BP 160/90; PULSE 88; RESP 20; TEMP 36.6; O2SAT 100
[2022-04-16] MEDS: Insulin Aspart 300 UNITS/3 ML PEN SC ×7 (08:25→21:31)
[2022-04-16] MEDS: Omeprazole 20 MG CAPCR 40 MG PO (08:25)
[2022-04-16] MEDS: Cholecalciferol (Vitamin D3) 400 UNIT TAB PO ×2 (08:27→21:12)
[2022-04-16] MEDS: Enalapril 5 MG TAB 30 MG PO (08:27)
[2022-04-16] MEDS: Famotidine 20 MG TAB PO (08:27)
[2022-04-16] MEDS: Doxycycline Hyclate 100 MG CAP PO ×2 (08:27→21:13)
[2022-04-16] MEDS: Amitriptyline 50 MG TAB 100 MG PO (08:27)
[2022-04-16] MEDS: Magnesium Lactate-SR 84 MG TABCR PO ×2 (08:28→21:13)
[2022-04-16] MEDS: Nicotine 21 MG/24 HR PATCH TD (08:28)
[2022-04-16] MEDS: OLANZapine 10 MG TAB PO (08:28)
[2022-04-16] MEDS: Pregabalin 50 MG CAP 150 MG PO ×2 (08:29→21:11)
--- NOTE | 2022-04-16 10:20 | DI.VRAD_ITS ---
PROCEDURE INFORMATION: Exam: XR Left Elbow Exam date and time: 04/16/2022 10:08 AM Age: 71 years old Clinical indication: Other: S/P fall TECHNIQUE: Imaging protocol: Radiologic exam of the Left elbow. Views: 3 or more views. COMPARISON: No relevant prior studies available. FINDINGS: Bones/joints: No fractures are identified. Alignment is anatomic. There are tiny marginal osteophytes in the ulnotrochlear joint and radial head. No joint effusion is seen. Soft tissues: Regional soft tissues are unremarkable. IMPRESSION: No fracture or malalignment in the left elbow. Dictated and Authenticated by: Cynthia Oh MD. Ordering:KARYN Miranda MD
--- NOTE | 2022-04-16 10:22 | DI.VRAD_ITS ---
PROCEDURE INFORMATION: Exam: XR Left Hip Exam date and time: 04/16/2022 10:01 AM Age: 71 years old Clinical indication: Other: S/P fall TECHNIQUE: Imaging protocol: Radiologic exam of the Left hip. Views: 2 or 3 views hip with pelvis when performed. COMPARISON: CT ABD PELVIS WITH CONTRAST 02/14/2017 8:07 AM FINDINGS: Bones/joints: No fractures are identified in the left hip or elsewhere in the pelvis. The left femoral head maintains spherical contour and is well seated. The joint space is maintained. Soft tissues: No acute or suspicious abnormality in the regional soft tissues. Other findings: Large amount of retained stool in the visualized colon. IMPRESSION: No fracture or malalignment in the left hip. Dictated and Authenticated by: Cynthia Oh MD. Ordering:KARYN Miranda MD
--- NOTE | 2022-04-16 10:48 | CMSP_ITS ---
- If Service Date Differs Date of service: 04/16/22 Time of Service: 10:48 Care Management Safety Plan Status: Involuntary - Reason for Wait Reason for Wait: Inpatient Admission Safety plan has been established to meet the needs of the patient, and consideration of the care team, to adhere to patient goals, identify restrictions based on behavioral status, address nutrition, and determine allowed personal belongings, tools for hygiene and personal care. Determine level of activity including ambulation, level of supervision, visitors, and determine privileges based on behaviors and level of engagement by pt. A safety huddle is done at 10:00 am with Kathia, provider, Meghann, nursing ordnance truck installation supervisor, Jessica, coordinator, GUME Joyce, and BRITANY Duarte, in attendance. NO CHANGE IN PLAN. SAFETY PLAN: 1. Will remain on SI/HI precautions. In Paper Clothes 2. Will remain in room under direct supervision of one-on-one staff at all times provided by CPSO, GONZALO, CHOKE SETTER communications media professor. 3. May have paper cups, plates, finger foods as well as a cardboard spoon to eat meals. 4. Follow [facility] Management of the Admitted Behavioral Health Patient policy. 5. May shower with supervision at nursing discretion. 6. No personal belongings. 7. Visitors: none at this time 8. Activities: may have soft items from activity cart, music tablet, television and other activities at RN discretion. 9. Bathroom privileges available in room without restrictions. 10. Phone: None at this time 11. Due to INVOLUNTARY status, patient is being held at [facility] by the Department of Mental Health ([facility]). A 2nd certification by [facility] Psychiatrist occurred on 04/12/22 and upheld the involutary status. Staff will provide de-escalation support (CPI) as needed. If patient wishes to leave [facility], staff will contact [facility] Crisis Screener ([phone]) and On-Call Automotive Internet Sales Consultant ([phone]) as soon as possible. In the event of elopement, notify [place] State Police ([phone]). Patient is currently involuntarily at [facility]. [facility] Frontline Electrical Maintenance Worker will continue seeking placement. Please contact the Application Systems Administrator Automotive Internet Sales Consultant ([phone]) for any needed changes to Safety Plan. Safety plan has been provided to interdepartmental care team. Patient will be transported by sizer hand at time of discharge.
[2022-04-16 12:44] LABS: Anion Gap 7.1 mmol/L (3-11); BUN 27 mg/dL (7-18); CO2 27.9 mmol/L (21.0-32.0); CREATININE 1.1 mg/dL (0.55-1.02); Calcium 9.7 mg/dL (8.5-10.1); Chloride 99 mmol/L (98-107); Estimated GFR 54.06 (mL/min/1.73m2); Glucose 266 mg/dL (74-106); Potassium 4.9 mmol/L (3.5-5.1); Sodium 134 mmol/L (136-145)
[2022-04-16 15:13] VITALS: BP 117/69; PULSE 73; RESP 17; TEMP 36.1; O2SAT 92
--- NOTE | 2022-04-16 16:02 | W.PM.PROGNOT ---
Date of Service Date of service: 04/16/22 Time of Service: 16:02 Assessment and Plan Assessment and plan (1) Acute kidney injury: Status: Acute Assessment and plan: improved with hydration avoid nephrotoxic drugs and renal dose as needed. (2) Suicidal ideations: Status: Acute Assessment and plan: She is on an emergency hold here for her severe depression and suicidal ideation. She is now medically stable and can be moved to transitional hold area (3) Hyperglycemia: Status: Acute Assessment and plan: She has severe diabetes mellitus. Blood sugars will be monitored and insulin adjusted as needed for her blood sugar control. (4) Bronchitis: Status: Acute Assessment and plan: was started on doxycycline, will complete [address] Matthews. Exam Const General: cooperative and no acute distress Nutritional Appearance: obese HENMT Head: normal to inspection Eyes General: appearance normal, both eyes and all related structures Sclera: sclerae normal Neck Neck: normal visual inspection Resp Effort & Inspection: normal respiratory effort Cardio Rate: regular rate GI Palpation: soft Neuro General: patient awake and not oriented x3 Extrem General: no edema Objective Last Vital Signs Temp 36.1 C L 04/16/22 15:13 Pulse 73 04/16/22 15:13 Resp 17 04/16/22 15:13 BP 117/69 04/16/22 15:13 Pulse Ox 92 04/16/22 15:13 Laboratory Results - last 24 hr 04/16/22 12:20 Sodium 134 L Potassium 4.9 Chloride 99 Carbon Dioxide 27.9 Anion Gap 7.1 BUN 27 H Creatinine 1.1 H Est GFR (CKD-EPI 2020) 54.06 Glucose 266 H Calcium 9.7
--- NOTE | 2022-04-16 16:48 | CMPROGNOTE_ITS ---
- If Service Date Differs Date of service: 04/16/22 Time of Service: 16:48 Care Management Progress Note S/O: Tessy is lying down when CM comes to meet with her. She mumbles when asked a question, makes no eye contact and does not engage. Nursing staff report Tessy fell this morning and bumped her elbow but thankfully was uninjured. Tessy has struggled with being at the hospital and being unable to return home. CM decides to let her rest as this has been a difficult weekend for her. A: Tessy is a 71 year old female presenting to [facility] ED with hx of depression, BPD and SI. P: Tessy is now on EE status, awaiting involuntary placement in a psychiatric facility. [facility] has declined Tessy as her medical needs cannot be met at their facility. [facility] and [facility] are only accepting patients from their own facility. Tessy will remain at [facility] on involuntary status and will be re assessed twice daily by [facility] until a placement can be secured for her. CM will continue to follow. - MH Services (Omit if N/A) Current MH Services: [facility] - Status Status: Involuntary - Reason for Wait Reason for Wait: Inpatient Admission
[2022-04-16] MEDS: Pramipexole 0.25 MG TAB 0.75 MG PO (21:12)
[2022-04-16] MEDS: Simvastatin 40 MG TAB PO (21:12)
[2022-04-17] MEDS: Levothyroxine 150 MCG TAB PO (06:45)
[2022-04-17 08:07] VITALS: BP 154/78; PULSE 76; RESP 16; TEMP 36.5; O2SAT 95
[2022-04-17] MEDS: Pregabalin 50 MG CAP 150 MG PO ×2 (08:19→19:49)
[2022-04-17] MEDS: Cholecalciferol (Vitamin D3) 400 UNIT TAB PO ×2 (08:19→19:47)
[2022-04-17] MEDS: LORazepam 1 MG TAB PO ×4 (08:19→19:50)
[2022-04-17] MEDS: Omeprazole 20 MG CAPCR 40 MG PO (08:19)
[2022-04-17] MEDS: Enalapril 5 MG TAB 30 MG PO (08:19)
[2022-04-17] MEDS: Doxycycline Hyclate 100 MG CAP PO ×2 (08:19→19:47)
[2022-04-17] MEDS: OLANZapine 10 MG TAB PO (08:20)
[2022-04-17] MEDS: Amitriptyline 50 MG TAB 100 MG PO (08:20)
[2022-04-17] MEDS: Famotidine 20 MG TAB PO (08:20)
[2022-04-17] MEDS: Nicotine 21 MG/24 HR PATCH TD (08:20)
[2022-04-17] MEDS: Magnesium Lactate-SR 84 MG TABCR PO ×2 (08:20→19:48)
[2022-04-17] MEDS: Insulin Aspart 300 UNITS/3 ML PEN SC ×7 (08:21→20:52)
--- NOTE | 2022-04-17 09:17 | CMSP_ITS ---
- If Service Date Differs Date of service: 04/17/22 Time of Service: 09:17 Care Management Safety Plan Status: Involuntary Safety plan has been established to meet the needs of the patient, and consideration of the care team, to adhere to patient goals, identify restrictions based on behavioral status, address nutrition, and determine allowed personal belongings, tools for hygiene and personal care. Determine level of activity including ambulation, level of supervision, visitors, and determine privileges based on behaviors and level of engagement by pt. NO CHANGE IN PLAN. INVOLUNTARY SAFETY PLAN: 1. Will remain on SI/HI precautions. In Paper Clothes 2. Will remain in room under direct supervision of one-on-one staff at all times provided by CPSO, OPERATOR MAINTAINER, DIRECTOR MOTION PICTURE bleaching supervisor. 3. May have paper cups, plates, finger foods as well as a cardboard spoon to eat meals. 4. Follow [facility] Management of the Admitted Behavioral Health Patient policy. 5. Comfort bath and shower with escort at RN discretion. 6. No personal belongings. 7. Visitors: none at this time 8. Activities: may have soft items from activity cart, music tablet, television, remote and other activities at RN discretion. 9. Bathroom privileges available in room without restrictions. 10. Phone: Via cordless phone at RN discretion. 11. Due to INVOLUNTARY status, patient is being held at [facility] by the Department of Mental Health ([facility]). A 2nd certification by [facility] Psychiatrist occurred on 04/12/22 and upheld the involutary status. Staff will provide de-escalation support (CPI) as needed. If patient wishes to leave [facility], staff will contact [facility] Crisis Screener ([phone]) and On-Call Sales Representative Trainee ([phone]) as soon as possible. In the event of elopement, notify [place] State Police ([phone]). Patient is currently involuntarily at [facility]. [facility] Frontline Lode Miner Blasting will continue seeking placement. Please contact the Bench Carpenter Sales Representative Trainee ([phone]) for any needed changes to Safety Plan. Safety plan has been provided to interdepartmental care team. Patient will be transported by salsa dance instructor at time of discharge.
--- NOTE | 2022-04-17 09:17 | PDOC.CMSAFE ---
- If Service Date Differs Date of service: 04/17/22 Time of Service: 09:17 Care Management Safety Plan Status: Involuntary Safety plan has been established to meet the needs of the patient, and consideration of the care team, to adhere to patient goals, identify restrictions based on behavioral status, address nutrition, and determine allowed personal belongings, tools for hygiene and personal care. Determine level of activity including ambulation, level of supervision, visitors, and determine privileges based on behaviors and level of engagement by pt. NO CHANGE IN PLAN. INVOLUNTARY SAFETY PLAN: 1. Will remain on SI/HI precautions. In Paper Clothes 2. Will remain in room under direct supervision of one-on-one staff at all times provided by CPSO, COMPUTER ENGINEER, REJECT OPENER technical support engineer. 3. May have paper cups, plates, finger foods as well as a cardboard spoon to eat meals. 4. Follow [facility] Management of the Admitted Behavioral Health Patient policy. 5. Comfort bath and shower with escort at RN discretion. 6. No personal belongings. 7. Visitors: none at this time 8. Activities: may have soft items from activity cart, music tablet, television, remote and other activities at RN discretion. 9. Bathroom privileges available in room without restrictions. 10. Phone: Via cordless phone at RN discretion. 11. Due to INVOLUNTARY status, patient is being held at [facility] by the Department of Mental Health ([facility]). A 2nd certification by [facility] Psychiatrist occurred on 04/12/22 and upheld the involutary status. Staff will provide de-escalation support (CPI) as needed. If patient wishes to leave [facility], staff will contact [facility] Crisis Screener ([phone]) and On-Call Bottom Hoop Driver ([phone]) as soon as possible. In the event of elopement, notify [place] [employer] ([phone]). Patient is currently involuntarily at [facility]. [facility] Frontline Accounting Practice Manager will continue seeking placement. Please contact the Senior Interior Designer Bottom Hoop Driver ([phone]) for any needed changes to Safety Plan. Safety plan has been provided to interdepartmental care team. Patient will be transported by bariatric program coordinator at time of discharge.
[2022-04-17] MEDS: Acetaminophen 325 MG TAB 650 MG PO (13:14)
[2022-04-17 15:18] VITALS: BP 148/71; PULSE 89; RESP 18; TEMP 36; O2SAT 97
--- NOTE | 2022-04-17 16:27 | W.PM.PROGNOT ---
Date of Service Date of service: 04/17/22 Time of Service: 16:27 Assessment and Plan Assessment and plan (1) Acute kidney injury: Status: Acute Assessment and plan: improved with hydration avoid nephrotoxic drugs and renal dose as needed. (2) Suicidal ideations: Status: Acute Assessment and plan: She is on an emergency hold here for her severe depression and suicidal ideation. She is now medically stable and can be moved to transitional hold area (3) Hyperglycemia: Status: Acute Assessment and plan: She has severe diabetes mellitus. Blood sugars will be monitored and insulin adjusted as needed for her blood sugar control. (4) Bronchitis: Status: Acute Assessment and plan: was started on doxycycline, will complete [address] Matthews. Subjective Subjective Patient reports: no new complaints, tolerating liquids well, tolerating a regular diet and afebrile; denies shortness of breath Exam Const General: cooperative and no acute distress Nutritional Appearance: obese HENMT Head: normal to inspection Eyes General: appearance normal, both eyes and all related structures Sclera: sclerae normal Neck Neck: normal visual inspection Resp Effort & Inspection: normal respiratory effort Cardio Rate: regular rate GI Palpation: soft Neuro General: patient awake and not oriented x3 Extrem General: no edema Objective Last Vital Signs Temp 36.0 C L 04/17/22 15:18 Pulse 89 04/17/22 15:18 Resp 18 04/17/22 15:18 BP 148/71 H 04/17/22 15:18 Pulse Ox 97 04/17/22 15:18
--- NOTE | 2022-04-17 16:55 | PDOC.MHPN2 ---
Date of service: 04/17/22 Time of Service: 11:45 Mental Health Emergency Note Release [facility] release signed:: Yes Reason for Visit Client presented to [facility] ED on 04/10/[address] [facility] police after stating to police that she wanted to end her life via suicide. Client was assessed by [facility] JENNIFER Tavares and is currently on involuntary hold after stating that she wanted to leave on 04/12/22. Client is seen today for daily re-assessment in person. In the last 2 weeks has the pt presented for ES prior to today?: No Client Information Client is: Adult Outpatient Well Housed: Yes Current Treatment Team if applicable First care sales team member: Name: Renu Roman Role: Medication provider Contact Info: [phone] Non Suicidal Self Injury Current: No History: yes, Client has hx of NSSI and suicidal ideations. Safety Risk/Harm to Self or Others Current Ideation to Harm Self or Others: No Risk: Does risk to harm exist?: yes. Risk: High Risk Duty to warn indicated: No Asssessment/Mental Status Appearance: Disheveled Attitude: Cooperative Behavior: Unremarkable Speech: Soft and Slow Affect: Flat and Cogruent with mood Mood: Sad, Stressed and Depressed Thought process: Poverty of content (Disorganized thinking) Hallucinations: No Delusions: No Attention: Unremarkable Perception: Not impaired Orientation: Fully orientated Memory: Impaired in: (Recent events and what brought him to the hospital) Recent Insight: Poor Judgement: Poor Neurovegetative Symptoms Sleep: Decrease (Client reports she has not been sleeping waking up frequently throughout the night) Appetitie: Disordered (Client reports that she eats sometimes, typically only breakfast and lunch. ) Interests: Decrease Energy: Decrease Libido: Not applicable Substance Use: Do you use nicotine?: No Have you used substances in the last 7 days?: No Additional Issues: Assaultive/Threatening Behavior: No Medical Concerns: Yes Client engaged in active self harm w/weapon: No Threatening to run away: Yes Child reported abuse/neglect: No Voluntarily presenting for services: No Domestic violence is a concern: No Extreme Psychosis or extreme behavior is present: No Impression Client is a 71 year old, single, female who lives independently in [place]. She is a long standing client of [facility]' outpatient services and has a more recent record of no shows for her appointments. Client presents with symptoms most congruent with major depressive disorder as evidenced by self-report that she is tearful throughout the day and has had lost of interest in things that used to bring her sumit. Client reports that she has minimal natural supports as only one of her sisters talks to her currently and she is unable to identify any friends. Client currently not endorsing suicidal ideations, however appears to be having a lapse in memory in what brought her to the hospital on 04/10. Client has history of inpatient treatment for her mental health in addition to a hx of SI an suicidal attempts which put her at higher risk. Client reports that she feels hopeless and unsafe. Plan/Disposition Recommended Disposition: Hospitalization facilities contacted. Plan: Client will remain at [facility] on EE status pending admission to an inpatient facility. Client will be re-assessed by [facility] ES daily until placement is secured or clients acuity level decreases and she is able to be safety planned back to the community. Client will continue outpatient services upon discharge from treatment although providers may change. Clients referral is currently under review at [facility]. Due to the client's decompensation in mental janeth and poor insight she will continue to remain on EE status at this time. Person reported agreement to plan: No Facilities contacted if Applicable [facility] Not accepted, [facility] Not accepted[facility] No bed available [facility] Not accepted, No bed available, [facility] Not accepted, (under review) [facility] Not accepted, Acuity Reports/communication Outcome discussed with: ED/Personnel (Verbal passover given to [facility] residential caregiver Fabiana. ) Final Disposition/Discharge Transportation Checklist completed and faxed: No
--- NOTE | 2022-04-17 17:55 | NUR.NOTE ---
Nursing Note: At this time GUME Amaya came over the radio and states the patient is stating she is stressed and does not understand why she is still here. This RN went to talk with the patient. Patient standing in the room talking to this RN stating I don't understand why I am here. It is against the law to keep me here. This RN educated the patient that she is involuntary which means she can leave, but as soon as she does the police will be contacted. This RN offered PRN Ativan. Patient agreed to take medication. This RN grabbed the Ativan. Upon coming back to the transition unit, the patient is standing in the wallace talking with CPSO. CPSO stated she has walked towards the door three times and I have been able to redirect her, but I am not sure how many times I will be successful. This RN gave patient PRN Ativan. [facility] contacted to speak with the patient. Charge nurse made aware of the situation.
--- NOTE | 2022-04-17 17:55 | NUR.NOTE ---
Called [facility] to let them know patient is trying to leave and she had tried to elope 2times at this point patient said she would stay for a short time while she waits for them to call her back Nursing Note:
[2022-04-17 19:45] VITALS: BP 124/60; PULSE 84; RESP 16; TEMP 36.7; O2SAT 96
[2022-04-17] MEDS: Simvastatin 40 MG TAB PO (19:49)
[2022-04-17] MEDS: Pramipexole 0.25 MG TAB 0.75 MG PO (20:54)
[2022-04-18] MEDS: LORazepam 1 MG TAB PO ×5 (05:05→21:28)
[2022-04-18] MEDS: Levothyroxine 150 MCG TAB PO (05:22)
[2022-04-18] MEDS: OLANZapine 10 MG TAB PO (05:30)
--- NOTE | 2022-04-18 06:18 | NUR.NOTE ---
Nursing Note: Around 05:20 this morning, this scribe pulled haloperidol 4mg for an IM injection for the patient due to increased agitation and safety concerns. The dose was not used as de-escalation and voluntary PO meds were effective for the patient. 5mg vial (1mL) was wasted with Africa Thompson LPN as witness.
[2022-04-18 07:29] VITALS: BP 121/73; PULSE 90; RESP 17; TEMP 36.2; O2SAT 94
[2022-04-18] MEDS: Nicotine 21 MG/24 HR PATCH TD (08:20)
[2022-04-18] MEDS: Cholecalciferol (Vitamin D3) 400 UNIT TAB PO ×2 (08:21→21:32)
[2022-04-18] MEDS: Amitriptyline 50 MG TAB 100 MG PO (08:21)
[2022-04-18] MEDS: Omeprazole 20 MG CAPCR 40 MG PO (08:21)
[2022-04-18] MEDS: Pregabalin 50 MG CAP 150 MG PO ×2 (08:21→21:33)
[2022-04-18] MEDS: Magnesium Lactate-SR 84 MG TABCR PO ×2 (08:21→21:28)
[2022-04-18] MEDS: Enalapril 5 MG TAB 30 MG PO (08:21)
[2022-04-18] MEDS: Doxycycline Hyclate 100 MG CAP PO ×2 (08:21→21:26)
[2022-04-18] MEDS: Famotidine 20 MG TAB PO (08:21)
[2022-04-18] MEDS: Insulin Aspart 300 UNITS/3 ML PEN SC ×7 (08:23→21:33)
[2022-04-18] MEDS: fentaNYL 25 MCG PATCH TD (10:19)
[2022-04-18] MEDS: fentaNYL 12 MCG PATCH TD (10:20)
--- NOTE | 2022-04-18 12:12 | MHPN_ITS ---
Date of service: 04/15/22 Time of Service: 12:12 PHQ-9 Over the last 2 weeks, how often have you been bothered by any of the following problems? 1. Little interest or pleasure in doing things: nearly every day 2. Feeling down, depressed, or hopeless: nearly every day 3. Trouble falling or staying asleep, or sleeping too much: more than half the days 4. Feeling tired or having little energy: nearly every day 5. Poor appetite or overeating: more than half the days 6. Feeling bad about yourself - or that you are a failure or have let yourself and your family down: nearly every day 7. Trouble concentrating on things, such as reading the newspaper or watching television: nearly every day 8. Moving or speaking so slowly that other people could have noticed? - Or the opposite - being so fidgety or restless that you have been moving around a lot more than usual: not at all 9. Thoughts that you would be better off or of hurting yourself in some way: nearly every day Total score: 22 If you checked off any problems, how difficult have these problems made it for you to do your work, take care of things at home, or get along with other people?: somewhat difficult PHQ-9 Results: Positive Source: Developed by Drs. Adelso Coyle, Desi Miles, Sai Loving and colleagues, with an educational nika from [employer] book. Suicide Severity Rate CSSRS Have you wished you were or wished you could go to sleep and not wake up?: Yes Have you actually had any thoughts of killing yourself?: Yes CSSRS2 Have you been thinking about how you might do this?: Yes Have you had these thoughts and had some intention of acting on them?: Yes Have you started to work out or worked out the details of how to kill yourself? Do you intend to carry out this plan?: Yes CSSRS3 Have you ever done anything, started to do anything or prepared to do anything to end your life?: Yes CSSRS4 Was this within the past three months?: Yes Screening Score Total Score: 8 Screening: Positive Mental Health Emergency Note Release [facility] release signed:: Yes Reason for Visit lient presented to [facility] ED on 04/10/22 via [facility] police after stating to police that she wanted to end her life via suicide. Client was assessed by [facility] JENNIFER Tavares and was seeking voluntary inpatient treatment. On 04.12.2022 the client wanted to leave the hospital and JENNIFER Tavares completed an EE after she was unable and unwilling to do a safety plan with JENNIFER Tavares and Director Paras. Per JENNIFER Farrar's report this morning client became medical last night as her kreatine levels increased and was moved to med-surge. Per report from [facility] adult care provider Vianey Burnett client is now medically cleared. Client is currently on EE status and this public relations writer completes clients daily assessment via zoom. In the last 2 weeks has the pt presented for ES prior to today?: Unknown Client Information Client is: Adult Outpatient Well Housed: Yes Non Suicidal Self Injury Current: No History: No Safety Risk/Harm to Self or Others Current Ideation to Harm Self or Others: No Risk: Does risk to harm exist?: yes. Access to means: Yes. Types of Means: Other weapons and Medication. Counseling provided: Yes Risk: High Risk Duty to warn indicated: No Asssessment/Mental Status Appearance: Disheveled Attitude: Cooperative and Hostile Behavior: Unremarkable Speech: Soft Affect: Cogruent with mood Mood: Stressed, Depressed, Irritable and Angry Thought process: Loose associations and Poverty of content Hallucinations: No Delusions: No Attention: Unremarkable Perception: Not impaired Orientation: Disoriented in Person and Situation Memory: Impaired in: Recent Insight: Fair Judgement: Poor Neurovegetative Symptoms Sleep: No change Appetitie: No change Interests: No change Energy: No change Libido: Not applicable Substance Use: Do you use nicotine?: No Have you used substances in the last 7 days?: No Additional Issues: Assaultive/Threatening Behavior: No Medical Concerns: No Client engaged in active self harm w/weapon: No Threatening to run away: Yes Child reported abuse/neglect: No Voluntarily presenting for services: No Domestic violence is a concern: No Extreme Psychosis or extreme behavior is present: Yes Impression Client is a 71 year old female who lives independently on her own. She is currently waiting at [facility] on EE status and continues to meet criteria today b ased on concerns if she were to be discharged she poses a significant risk to herself as she has not been taking her medications correctly or meeting her diabetic needs. He health has decompensation as a result. Client is unable to keep her timeline and events clear. She is unable to regulate her mood for longer periods of time as evidenced by showing anger one minute to tearful the next and accusatory towards all that are trying to help her. Plan/Disposition Recommended Disposition: Hospitalization facilities contacted. Plan: Client will remain at [facility] pending acceptance to a hospital level of care. Once discharged she will return home. Person reported agreement to plan: No Facilities contacted if Applicable [facility] Not accepted, Medical reasons [facility] Not accepted, No bed available [facility] Not accepted, No bed available, [facility] Not accepted, Medical reasons Reports/communication Outcome discussed with: ED/Personnel
--- NOTE | 2022-04-18 15:36 | NUR.NOTE ---
Nursing Note: At this time Sly Chávez, charge nurse at [facility], called to get nurse to nurse on this patient. This RN went over all medications with Sly. All questions the nurse had were answered. Charge nurse made aware of this phone call.
[2022-04-18 15:53] VITALS: BP 120/70; PULSE 85; RESP 18; TEMP 36.4; O2SAT 95
[2022-04-18] MEDS: Acetaminophen 325 MG TAB 650 MG PO (16:25)
--- NOTE | 2022-04-18 17:21 | W.PM.PROGNOT ---
Date of Service Date of service: 04/18/22 Time of Service: 17:21 Assessment and Plan Assessment and plan (1) Acute kidney injury: Status: Acute Assessment and plan: improved with hydration - will recheck tomorrow avoid nephrotoxic drugs and renal dose as needed. (2) Suicidal ideations: Status: Acute Assessment and plan: She is on an emergency hold here for her severe depression and suicidal ideation. She is now medically stable and can be moved to transitional hold area. She has been accepted and will be transferred tomorrow 04/19/2022 (3) Hyperglycemia: Status: Acute Assessment and plan: She has severe diabetes mellitus. Blood sugars will be monitored and insulin adjusted as needed for her blood sugar control. Fingersticks 200-300 -insulin ss is resistant. (4) Bronchitis: Status: Acute Assessment and plan: was started on doxycycline, will complete 5 days. Last dose 04/19/2022 No difficulty breathing. discussed with Dr Matthews. Subjective Subjective Patient reports: no new complaints, tolerating a regular diet, voiding w/o difficulty, bowel movement and afebrile; denies diarrhea, nausea or vomiting Interval history since last seen: Some increasing agitation this afternoon - was given oral haldol with good results Exam Const General: cooperative and no acute distress Nutritional Appearance: obese HENMT Head: normal to inspection Eyes General: appearance normal, both eyes and all related structures Sclera: sclerae normal Neck Neck: normal visual inspection Resp Effort & Inspection: normal respiratory effort Cardio Rate: regular rate GI Palpation: soft Neuro General: patient awake and not oriented x3 Extrem General: no edema Objective Last Vital Signs Temp 36.4 C L 04/18/22 15:53 Pulse 85 04/18/22 15:53 Resp 18 04/18/22 15:53 BP 120/70 04/18/22 15:53 Pulse Ox 95 04/18/22 15:53
[2022-04-18] MEDS: diphenhydrAMINE 25 MG CAP 50 MG PO (17:31)
[2022-04-18] MEDS: Haloperidol 5 MG TAB PO (17:31)
--- NOTE | 2022-04-18 18:33 | CMSP_ITS ---
- If Service Date Differs Date of service: 04/18/22 Time of Service: 18:33 Care Management Safety Plan Status: Involuntary - Reason for Wait Reason for Wait: Inpatient Admission Safety plan has been established to meet the needs of the patient, and consideration of the care team, to adhere to patient goals, identify restrictions based on behavioral status, address nutrition, and determine allowed personal belongings, tools for hygiene and personal care. Determine level of activity including ambulation, level of supervision, visitors, and determine privileges based on behaviors and level of engagement by pt. NO CHANGE IN PLAN. INVOLUNTARY SAFETY PLAN: 1. Will remain on SI/HI precautions. In Paper Clothes 2. Will remain in room under direct supervision of one-on-one staff at all times provided by [employer]PSO, JIG MILL OPERATOR, ROUGE PRESSER robotic welding operator. 3. May have paper cups, plates, finger foods as well as a cardboard spoon to eat meals. 4. Follow [facility] Management of the Admitted Behavioral Health Patient policy. 5. Comfort bath and shower with escort at RN discretion. 6. No personal belongings. 7. Visitors: none at this time 8. Activities: may have soft items from activity cart, music tablet, television, remote and other activities at RN discretion. 9. Bathroom privileges available in room without restrictions. 10. Phone: Via cordless phone at RN discretion. 11. Due to INVOLUNTARY status, patient is being held at [facility] by the Department of Mental Health ([facility]). A 2nd certification by [facility] Psychiatrist occurred on 04/12/22 and upheld the involutary status. Staff will provide de-escalation support (CPI) as needed. If patient wishes to leave [facility], staff will contact [facility] Crisis Screener ([phone]) and On-Call Employment Director ([phone]) as soon as possible. In the event of elopement, notify [place] [employer] Police ([phone]). Patient is currently involuntarily at [facility]. [facility] Frontline Community Outreach Advocate will continue seeking placement. Please contact the Mortgage Processor Employment Director ([phone]) for any needed changes to Safety Plan. Safety plan has been provided to interdepartmental care team. Patient will be transported by [facility] [employer] at time of discharge.
[2022-04-18] MEDS: Simvastatin 40 MG TAB PO (21:25)
[2022-04-18] MEDS: Pramipexole 0.25 MG TAB 0.75 MG PO (21:27)
[2022-04-18 23:30] VITALS: BP 113/76; PULSE 82; RESP 17; TEMP 36.5; O2SAT 95
[2022-04-19] MEDS: diphenhydrAMINE 25 MG CAP 50 MG PO (01:21)
[2022-04-19] MEDS: Haloperidol 5 MG TAB PO (01:21)
[2022-04-19] MEDS: LORazepam 1 MG TAB PO ×2 (01:22→09:09)
[2022-04-19 06:18] LABS: Abs Immature Grans 0.07 10^3/uL (0.0-0.06); Absolute Basophil Count 0.09 10^3/uL (0.0-0.2); Absolute Eosinophil Count 0.28 10^3/uL (0.0-0.7); Absolute Lymphocyte Count 2.46 10^3/uL (1.2-3.4); Absolute Monocyte Count 1.05 10^3/uL (0.1-0.8); Absolute Neutrophil Count 9.21 10^3/uL (1.2-6.7); Basophils % 0.7; Eosinophils % 2.1; HCT 33.1 % (36.0-46.0); HGB 10.5 g/dL (11.2-15.7); Immature Grans % 0.5; Lymphocytes % 18.7; MCHC 31.7 % (32.0-36.0); MCV 79 fL (80-95); MPV 10.4 fL (8.0-11.0); Platelet Count 407 10^3/uL (130-400); RDW 16.3 % (11.7-14.6); RDW-SD 46.2 fL; WBC 13.16 10^3/uL (4.4-10.8)
[2022-04-19] MEDS: Levothyroxine 150 MCG TAB PO (06:20)
[2022-04-19 06:43] LABS: Anion Gap 10.8 mmol/L (3-11); BUN 35 mg/dL (7-18); CO2 25.2 mmol/L (21.0-32.0); CREATININE 1.4 mg/dL (0.55-1.02); Calcium 9.5 mg/dL (8.5-10.1); Chloride 98 mmol/L (98-107); Estimated GFR 40.47 (mL/min/1.73m2); Glucose 272 mg/dL (74-106); Potassium 4.6 mmol/L (3.5-5.1); Sodium 134 mmol/L (136-145)
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
[2022-04-19] MEDS: Enalapril 5 MG TAB 30 MG PO (09:07)
[2022-04-19] MEDS: Nicotine 21 MG/24 HR PATCH TD (09:07)
[2022-04-19] MEDS: Omeprazole 20 MG CAPCR 40 MG PO (09:08)
[2022-04-19] MEDS: Magnesium Lactate-SR 84 MG TABCR PO (09:08)
[2022-04-19] MEDS: OLANZapine 10 MG TAB PO (09:08)
[2022-04-19] MEDS: Amitriptyline 50 MG TAB 100 MG PO (09:08)
[2022-04-19] MEDS: Pregabalin 50 MG CAP 150 MG PO (09:08)
[2022-04-19] MEDS: Famotidine 20 MG TAB PO (09:09)
[2022-04-19] MEDS: Cholecalciferol (Vitamin D3) 400 UNIT TAB PO (09:09)
[2022-04-19] MEDS: Doxycycline Hyclate 100 MG CAP PO (09:09)
[2022-04-19] MEDS: Insulin Aspart 300 UNITS/3 ML PEN SC ×2 (09:17→09:18)
[2022-04-19] MEDS: Haloperidol 5 MG/ML VIAL 4 MG IM (09:45)
[2022-04-19] MEDS: diphenhydrAMINE 50 MG/ML VIAL 25 MG IM (10:00)
[2022-04-19] MEDS: LORazepam 2 MG/ML VIAL IM (10:00)
--- NOTE | 2022-04-19 16:16 | PDOC.CMDIS ---
- If Service Date Differs Date of service: 04/19/22 Time of Service: 16:16 LACE Index Scoring Tool - Questions: Length of Stay (in days): 4 - 6 Acuity (Admit via E.D.?): Yes Comorbidities: Diabetes w/o Complication, Chronic Pulmonary Disease E.D. Visits: 1 - Answers: Total Score: 11 Risk of Readmission: High Risk Care Management Discharge Reason for Hospitalization: IRIS, Hyperglycemia, SI Discharge Plan: Transfer to [facility] via [facility] transport. Patient/Family Education Needs: Review discharge instructions, discuss Ask Me Three. - MH Services (Omit if N/A) Current MH Services: Internal [facility] - Disposition [facility]
[2022-04-19 18:45] LABS: Lab Add On Test DONE
[2022-04-19 19:04] LABS: Hemoglobin A1C 9.3 % (<5.7)
== END 2022-04-19 10:09 ==
LOC: ER 04-13 20:50 → MS 04-13 21:55
PROVIDERS: Family Medicine; Nurse Practitioner Acute Care; Nurse Practitioner Family; Physician Assistant; Student in an Organized Health Care Education/Training Program; Admitting Provider Family Medicine; Emergency Provider Physician Assistant; PCP Nurse Practitioner Family; Visit Provider Family Medicine
DX: N17.9 Acute kidney failure, unspecified (principal); R45.851 Suicidal ideations; J20.9 Acute bronchitis, unspecified; E83.42 Hypomagnesemia; R42 Dizziness and giddiness; E11.65 Type 2 diabetes mellitus with hyperglycemia; J44.9 Chronic obstructive pulmonary disease, unspecified; E03.9 Hypothyroidism, unspecified; F32.9 Major depressive disorder, single episode, unspecified; D64.9 Anemia, unspecified; N39.46 Mixed incontinence; K21.9 Gastro-esophageal reflux disease without esophagitis; I10 Essential (primary) hypertension; F17.210 Nicotine dependence, cigarettes, uncomplicated; Z85.850 Personal history of malignant neoplasm of thyroid; Z20.822 Contact with and (suspected) exposure to COVID-19; Z79.4 Long term (current) use of insulin; Z79.899 Other long term (current) drug therapy; Z86.73 Personal history of transient ischemic attack (TIA), and cerebral infarction without residual deficits; Z79.84 Long term (current) use of oral hypoglycemic drugs
CPT/HCPCS: 36415; 70496; 70498; 76770; 80048; 80053; 80307; 82805; 82947; 87635; 93005; 96361; 96365; 96366; 96372; 96375; 99285; 71046; 73080; 73502; 81003; 81015; 83036; 83735; 84443; 84484; 85025; 87070; 87205; 93010; 99217; 99219; 99225; 99226; G0378; J1200; J1630; J2060; J2765; J3360; J3475; J3490

== ENCOUNTER 2022-05-08 08:59 | Emergency (ER) | payer MEDICARE, MEDICAID, SELFPAY ==
--- NOTE | 2022-05-08 09:00 | RT.EKG_ITS ---
APPROVED REPORT Exam: Resting ECG Reason for Exam: sob,dizzy Patient Location: E HR:76 bpm ECG Measurements Heart Rate 76 AXIS GA 71 P 0 QRSd 92 QRS -27 QT 369 T 65 QTc 415 Conclusion Sinus rhythm...normal P axis, V-rate 60- 99 Low voltage, precordial leads...precordial leads <1.0mV ST elevation, consider inferior injury...ST >0.08mV, II III aVF no stemi
[2022-05-08 09:02] VITALS: BP 147/66; PULSE 77; RESP 16; TEMP 37.1; O2SAT 98
--- NOTE | 2022-05-08 09:15 | DI.RAD_ITS ---
Exam(s) XR CHEST 2V PA LATERAL EXAM: XR CHEST 2V PA LATERAL CLINICAL HISTORY: SOB TECHNIQUE: 2D digital imaging was performed. COMPARISON: CR XR CHEST 2V PA LATERAL from 04/10/2022 FINDINGS: HEART: Normal size. Aorta: Not dilated. Mildly tortuous. PULMONARY VASCULATURE: Normal. LUNGS: Clear. PLEURAL SPACE: No pleural effusion or pneumothorax. BONE:Degenerative disc changes. IMPRESSION: No acute abnormality. DATA REPOSITORY: RADIATION DOSE DELIVERED:
[2022-05-08] MEDS: Lactated Ringers 1,000 ML 1000 ML IV (09:21)
[2022-05-08 09:25] LABS: Absolute Basophil Count 0.05 10^3/uL (0.0-0.2); Absolute Eosinophil Count 0.11 10^3/uL (0.0-0.7); Absolute Lymphocyte Count 1.24 10^3/uL (1.2-3.4); Absolute Monocyte Count 0.53 10^3/uL (0.1-0.8); Absolute Neutrophil Count 11.64 10^3/uL (1.2-6.7); Basophils % 0.4; Eosinophils % 0.8; HCT 32.8 % (36.0-46.0); Immature Grans % 0.7; Lymphocytes % 9.1; MCH 24.4 pg (27.0-33.0); MCHC 30.5 % (32.0-36.0); MCV 80 fL (80-95); MPV 9.1 fL (8.0-11.0); Monocytes % 3.9; Neutrophils % 85.1; Platelet Count 438 10^3/uL (130-400); RBC 4.09 10^6/uL (3.93-5.22); RDW 16.3 % (11.7-14.6); RDW-SD 47.9 fL; WBC 13.68 10^3/uL (4.4-10.8)
[2022-05-08 09:30] LABS: Lactate 1.1 mmol/L (0.9-1.7)
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
[2022-05-08] MEDS: Ondansetron O.D.T. 4 MG TABEF PO (09:59)
[2022-05-08 10:01] LABS: ALT 18 U/L (14-59); AST 19 U/L (15-37); Albumin 3.1 g/dL (3.4-5.0); Alkaline Phosphatase 124 U/L (46-116); Anion Gap 11.2 mmol/L (3-11); BUN 8 mg/dL (7-18); Bilirubin, Total 0.4 mg/dL (0.2-1.0); CO2 25.8 mmol/L (21.0-32.0); CREATININE 0.8 mg/dL (0.55-1.02); Calcium 8.8 mg/dL (8.5-10.1); Chloride 98 mmol/L (98-107); Estimated GFR 79.22 (mL/min/1.73m2); Glucose 330 mg/dL (74-106); Lipase 37 U/L (73-393); Sodium 135 mmol/L (136-145); TSH (W/Ref FT4) 3.47 uIU/mL (0.36-3.74); Total Protein 7.6 g/dL (6.4-8.2); Troponin I < 50 ng/L (<or=60)
[2022-05-08 10:14] LABS: D-Dimer 994 ng/mlFEU (<500)
--- NOTE | 2022-05-08 10:15 | DI.CT_ITS ---
Exam(s) CT CHEST PE ABD PELVIS W EXAM: CT CHEST PE ABD PELVIS W CLINICAL HISTORY: SOB, recent admission. left sided abdominal pain. TECHNIQUE: Imaging Protocol: Axial computed tomography images with coronal and sagittal reformatted images were created and reviewed CONTRAST MATERIAL: Intravenous: Omnipaque 350 Contrast volume:100 ml Oral: no COMPARISON: CT ABD PELVIS WITH CONTRAST from 02/14/[address] CHEST LUNG CANCER SCREEN from 08/26/[address] BRAIN NECK CTA from 04/10/2022 CR XR CHEST 2V PA LATERAL from 05/08/2022 FINDINGS: CHEST: Tracheobronchial tree: Patent where visualized. Mediastinum and Annamaria: No dominant adenopathy or fluid collection. Pulmonary parenchyma: Limited evaluation due to mild motion and expiratory changes. No consolidation or dominant measurable mass. Pleura: No effusion or pneumothorax. Lymph nodes: Within normal limits. Aorta: Thoracic portion non-dilated. Mild atherosclerotic changes. Heart: Mildly dilated. Coronary artery calcifications are seen. Bones: Degenerative disc changes. No lytic or blastic lesions. ABDOMEN: Liver: Enlarged. Normal density. No measurable mass. Gallbladder and biliary tract: Status post cholecystectomy. No radiodense calculus or dilation. Pancreas: Normal density, no abnormal calcifications or inflammatory process. Spleen: Normal. Kidneys: Normal size, contour and axis. No radiodense stones or obstructive uropathy. No masses seen. Cyst lower pole left kidney. Adrenal glands: No masses seen. Aorta: Abdominal portion non-dilated. Atherosclerotic changes. Lymph nodes: Within normal limits. Soft tissues: Unremarkable. PELVIS: Bladder: Symmetric distention, no gross wall thickening. Bowel: No obstruction or bowel wall thickening. Appendix not seen. Normal quantity of stool. Peritoneal cavity: No ascites, collection or mesenteric inflammatory response. Bones: Unremarkable for age.. Reproductive organs: Status post hysterectomy. IMPRESSION: No acute abnormality in the chest abdomen or pelvis.. RADIATION DOSE DELIVERED: 1,424.35mGy.cm Total DLP DATA REPOSITORY: All CT scans at this facility are submitted to the National Radiology Data Registry (NRDR) Dose Index Registry (DIR) with the [employer] ([employer]). RADIATION OPTIMIZATION: All CT scans at this facility use at least one of these dose optimization te chniques: automated exposure control; mA and/or kV adjustment per patient size (includes targeted exa ms where dose is matched to clinical indication); or iterative reconstruction.
[2022-05-08] MEDS: Omnipaque 350 MG/ML 500 ML BTL-Imaging package IJ (10:44)
[2022-05-08 11:01] LABS: COVID-19 PCR Negative (Negative); Influenza A PCR Negative (Negative); Influenza B PCR Negative (Negative); RSV PCR Negative (Negative)
[2022-05-08 11:03] LABS: Source Nasopharynx
[2022-05-08 11:57] LABS: Bilirubin Negative (Negative); Blood Trace-intact (Negative); Clarity Clear (Clear); Glucose 500 mg/dL (Negative); Ketones 15 mg/dL (Negative); Leukocyte Esterase Negative (Negative); Nitrite Negative (Negative); Specific Gravity 1.015 (1.005-1.025); Urobilinogen 0.2 EU/dL (Up TO 0.2)
[2022-05-08 12:07] LABS: *AMPHETAMINES SCREEN URINE Negative (Negative); *BARBITURATES SCREEN URINE Negative (Negative); *BENZODIAZEPINES SCREEN URINE Negative (Negative); Cannabinoids THC Positive (Negative); Cocaine Screen,Urine Negative (Negative); METHADONE URINE SCREEN Negative (Negative); OPIATES URINE SCREEN Negative (Negative)
[2022-05-08 12:08] LABS: Tricyclic Antidepressants Positive (Negative)
[2022-05-08 12:11] LABS: Bacteria Rare HPF (Negative); C & S Indicated? No; Casts Negative LPF (Negative); Crystals Negative HPF (Negative); Epithelial Cells Few HPF (Negative); Mucus Negative (Negative); WBC 0-2 HPF (0-5)
[2022-05-08 13:01] LABS: Troponin I < 50 ng/L (<or=60)
--- NOTE | 2022-05-08 14:14 | CMPROGNOTE_ITS ---
- If Service Date Differs Date of service: 05/08/22 Time of Service: 14:14 Care Management Progress Note CM was asked to send HH orders for Tessy. Per report, she was [place] [facility] has not been thriving at home. The provider asked for HH orders to support Tessy's transition home. CM faxed completed orders to HH with the provider's note which stated that Tessy is homebound.
== END 2022-05-08 13:28 | disposition home or self-care (01) ==
LOC: ER 09:18
PROVIDERS: Emergency Provider Physician Assistant; PCP Nurse Practitioner Family
DX: E11.65 Type 2 diabetes mellitus with hyperglycemia (principal); D72.829 Elevated white blood cell count, unspecified; D64.9 Anemia, unspecified; J44.9 Chronic obstructive pulmonary disease, unspecified; I10 Essential (primary) hypertension; Z20.822 Contact with and (suspected) exposure to COVID-19; Z79.899 Other long term (current) drug therapy
CPT/HCPCS: 36415; 71275; 74177; 80053; 80307; 83690; 87040; 87637; 93005; 96360; 99285; 71046; 81003; 81015; 83605; 84443; 84484; 85025; 85379; 93010; 99284

== ENCOUNTER 2022-06-09 11:04 | Inpatient (IN) | payer MEDICARE, MEDICAID, SELFPAY ==
[2022-06-09] VITALS (10 sets, daily range): BP systolic 103–136; BP diastolic 71–100; PULSE 52–93; RESP 12–27; O2SAT 89–100
--- NOTE | 2022-06-09 11:00 | DI.CT_ITS ---
Exam(s) CT HEAD WO EXAM: CT HEAD WO CLINICAL HISTORY: altered mentation. TECHNIQUE: Imaging Protocol: Axial computed tomography images with coronal and sagittal reformatted images were created and reviewed COMPARISON: CT CT BRAIN NECK CTA from 04/10/2022 FINDINGS: Ventricles and Extra axial spaces: Normal in size and morphology for the patient's age. Hemorrhage: None. Cerebral parenchyma: Motion artifact near vertex. White matter changes of small vessel disease. Midline shift: None. Brainstem/Cerebellum: Normal. Calvarium: Normal. Visualized Paranasal sinuses/Mastoids: Clear. Soft Tissues: Unremarkable. IMPRESSION: Exam somewhat limited due to motion. No acute intracranial process. RADIATION DOSE DELIVERED: 1,657.22mGy.cm Total DLP DATA REPOSITORY: All CT scans at this facility are submitted to the National Radiology Data Registry (NRDR) Dose Index Registry (DIR) with the [employer] (ACR). RADIATION OPTIMIZATION: All CT scans at this facility use at least one of these dose optimization te chniques: automated exposure control; mA and/or kV adjustment per patient size (includes targeted exa ms where dose is matched to clinical indication); or iterative reconstruction.
[2022-06-09] MEDS: HYDROmorphone 2 MG/ML SYR (11:15)
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
--- NOTE | 2022-06-09 12:08 | NUR.NOTE ---
Addendum entered by Gabriela Javier 06/09/22 12:11: Disregard previous not/wrong patient. Original Note: Nursing Note: Pt resting more comfortably after receiving pain medication. R knee re-positioned. Does not want to be moved otherwise. Tracktion on L leg/foot in place. Pt denies any other needs.
--- NOTE | 2022-06-09 12:11 | NUR.NOTE ---
Nursing Note: Pt resting L side on stretcher. education program associate discontinued. Patient now on room air and SATing in90s. Family at bedside. Pt is responding to voice, able to make needs known, able to recognize family members by voice. Is not able to see which is new onset.
--- NOTE | 2022-06-09 12:58 | NUR.NOTE ---
Nursing Note: One to one in room with patient as she is fidgity, putting arms through bars on railing and rolling side to side. IV has been secured. Risk for fall. Family has left bedside. Pt continues to respond verbally, although less responsive. Words are very slurred, only intellegible at times. Pt does not appear in any significant distress requiring additional pain medication.
[2022-06-09] MEDS: HYDROmorphone 2 MG/ML SYR 1 MG IVP ×2 (13:30→15:11)
[2022-06-09 13:52] LABS: Source Nasal/Nares
[2022-06-09 14:23] LABS: COVID-19 PCR Negative (Negative)
[2022-06-09] MEDS: Scopolamine 1 MG/3 DAYS PATCH TD (15:09)
[2022-06-09] MEDS: LORazepam 2 MG/ML VIAL IV/SC (15:10)
[2022-06-09] MEDS: Normal Saline Flush 10 ML SYR IVP (15:12)
[2022-06-09] MEDS: HYDROmorphone 100 MG in Normal Saline 240 ML IV (15:32)
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
--- NOTE | 2022-06-09 17:22 | CHAPLAIN ---
Tessy was admitted through the ED after becoming unresponsive at her PCP's office earlier today. I introduced myself to Tessy's family, explained my role and offered support. One family member said, I think we're all set, but thanked me for stopping by. I let them know that pond supervisor is available 25/12 and the nurses can contact us.
--- NOTE | 2022-06-09 19:27 | EXPE_ITS ---
Date of service: 06/09/22 Time of Service: 19:36 Discharge Plan Disposition Patient Disposition: Discharge Details Reason For Visit: CVA, Kyung's sign left, Hypoxemia, Hyperglycemia Admit Date/Time: 06/09/22 12:38 Admit Provider: Franklyn Cespedes Attending Provider: Franklyn Cespedes Primary Care Provider: Joellen Molina Hospital Course Hospital Course: This is a 71-year-old lady who was declined at home and had frequent TIAs wanting to be DNR/DNI and going to hospice having been at her PCPs office to fill out a COLST form when she collapsed and was brought to the ED for evaluation but she distended not show any acute process but was poor quality and the patient did have a left gaze (Kyung's sign) which may indicate left CVA. She was hypoxic and hypoglycemic but no other testing was performed. She does have risk for atherosclerotic vessel disease and stroke with TIAs as mentioned and what appears to be poorly controlled diabetes. She also was on a statin and antihypertensives. Most likely cause of would be left CVA with hypoxemia and hyperglycemia secondary problems. She was pronounced at 18:30 on 06/09/2021. She was comfortable on Dilaudid infusion with comfort measures and family was present most of the day. Discharge Data Cause of : CVA - cerebrovascular accident due to cerebral artery occlusion Discharge Sum: Prov Provider Primary care physician: Joellen Molina Admitting clinician: Franklyn Cespedes Attending physician on admission: Franklyn Cespedes Consults: 06/09/22 12:44 Palliative Care Consult [CONS] Routine Consultation Status:: Follow-up needed Clarification:: Manage/follow per spec. Reason for consult:: Patient on comfort measures Pronouncing clinician: Victor Manuel Vincent Discharge Sum: Diag PCOD Cause of : CVA - cerebrovascular accident due to cerebral artery occlusion Contributing Factors (1) History of TIA (transient ischemic attack): Contributing factors: On statin and MICHELLE inhibitor but not antiplatelet therapy (2) Hyperglycemia: Contributing factors: Most likely reactive to acute event (3) Type 2 diabetes mellitus with complication: Contributing factors: Poorly controlled (4) Essential hypertension: Contributing factors: On treatment (5) Chronic obstructive pulmonary disease, unspecified: Contributing factors: Hypoxemia with acute events Discharge Sum: Summary Date and Time Admission Date: 06/09/2300/06/23 12:38 Date of : 06/09/22 Time of : 18:30 Summary Details: See hospital course. Additional Data Confirmation of as documented by pronouncing clinician: no pulse (Nurse pronounced), no respirations, no heart sounds and pupils fixed and dilated Attending/PCP notified?: No Attending Physician: Franklyn Cespedes MD, Franklyn Was code activated?: No Autopsy requested?: No land leasing examiner notified?: Yes Organ bank notified?: Yes Advance directives: Yes Hospice patient?: No
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
== END 2022-06-09 18:30 | disposition expired | DRG 66 ==
LOC: ER 12:54 → MS 14:23
PROVIDERS: Admitting Provider Family Medicine; Emergency Provider Student in an Organized Health Care Education/Training Program; PCP Nurse Practitioner Family; Visit Provider Family Medicine
DX: I63.9 Cerebral infarction, unspecified (principal); R09.02 Hypoxemia; R47.01 Aphasia; E11.65 Type 2 diabetes mellitus with hyperglycemia; J44.9 Chronic obstructive pulmonary disease, unspecified; I10 Essential (primary) hypertension; Z66 Do not resuscitate; Z51.5 Encounter for palliative care; Z86.73 Personal history of transient ischemic attack (TIA), and cerebral infarction without residual deficits; F32.A Depression, unspecified; K21.9 Gastro-esophageal reflux disease without esophagitis; E89.0 Postprocedural hypothyroidism; Z85.850 Personal history of malignant neoplasm of thyroid; F17.210 Nicotine dependence, cigarettes, uncomplicated; I95.9 Hypotension, unspecified; M16.11 Unilateral primary osteoarthritis, right hip; D64.9 Anemia, unspecified; F41.9 Anxiety disorder, unspecified; K76.0 Fatty (change of) liver, not elsewhere classified; E78.5 Hyperlipidemia, unspecified
CPT/HCPCS: 51702; 87635; 96374; 99285; 70450; 99222; J1170; J2060